=== PATIENT | female | born 1985 | race Caucasian/White ===

== ENCOUNTER 2021-12-14 08:00 | Outpatient (CLI) | payer OTHER ==
--- NOTE | 2021-12-15 08:47 | XRAY Report ---
PROCEDURE: Knee 2 View RT INDICATIONS: R KNEE PX TECHNIQUE: 2 views of the right knee(s) were acquired. COMPARISON: 08/24/2014. FINDINGS: Bones: No fractures or dislocations. No suspicious bony lesions. Soft tissues: No joint effusion. No suspicious soft tissue calcifications. IMPRESSION: Negative right knee. Reviewed by: Harshad Soliz MD on 12/15/2021 8:46 AM PDT Approved by: Harshad Soliz MD on 12/15/2021 8:46 AM PDT Station ID: [id number]
--- NOTE | 2021-12-15 08:55 | XRAY Report ---
PROCEDURE: Foot 3 View RT INDICATIONS: R FOOT PX TECHNIQUE: 3 views of the foot were acquired. COMPARISON: None FINDINGS: Bones: No fractures or dislocations. No suspicious bony lesions. Soft tissues: No tibiotalar joint effusion. Achilles tendon appears normal. IMPRESSION: No evidence for acute osseous abnormality involving the patient's right foot. Reviewed by: Harshad Soliz MD on 12/15/2021 8:53 AM PDT Approved by: Harshad Soliz MD on 12/15/2021 8:53 AM PDT Station ID: [id number]
--- NOTE | 2021-12-15 08:56 | XRAY Report ---
PROCEDURE: Ankle 3 View RT INDICATIONS: R ANKLE PX TECHNIQUE: 3 views of the ankle were acquired. COMPARISON: None FINDINGS: Bones: No fractures or dislocations. Ankle mortise is normally aligned. No suspicious bony lesions . Soft tissues: No tibiotalar joint effusion. Achilles tendon appears normal. IMPRESSION: Negative right ankle. Reviewed by: Harshad Soliz MD on 12/15/2021 8:54 AM PDT Approved by: Harshad Soliz MD on 12/15/2021 8:54 AM PDT Station ID: [id number]
== END 2021-12-14 23:59 | disposition home or self-care (01) ==
LOC: DI.N 08:00
PROVIDERS: ATTEND Registered Nurse
DX: M25.561 Pain in right knee (principal); M25.571 Pain in right ankle and joints of right foot; M79.671 Pain in right foot

== ENCOUNTER 2021-12-19 08:00 | Outpatient (CLI) | payer OTHER ==
[2021-12-19 12:43] LABS: BASOPHILS % (AUTO) 0.4 %; EOSINOPHILS # (AUTO) 0.1 10^3/uL (0.0-0.7); EOSINOPHILS % (AUTO) 1.3 %; HCT - HEMATOCRIT 40.1 % (37.0-47.0); HGB - HEMOGLOBIN 13.6 g/dL (12.0-16.0); LYMPHOCYTES # (AUTO) 2.2 10^3/uL (1.5-3.5); LYMPHOCYTES % (AUTO) 32.3 %; MEAN CORPUSCULAR HEMOGLOBIN 31.3 pg (27.0-31.0); MEAN CORPUSCULAR HGB CONC 33.9 g/dL (32.0-36.0); MEAN CORPUSCULAR VOLUME 92.4 fL (81.0-99.0); MEAN PLATELET VOLUME 10.6 fL (7.9-10.8); MONOCYTES # (AUTO) 0.5 10^3/uL (0.0-1.0); NEUTROPHILS % (AUTO) 58.6 %; PLT - PLATELET COUNT 185 10^3/uL (130-450); RED BLOOD COUNT 4.34 10^6/uL (4.20-5.40); RED CELL DISTRIBUTION WIDTH 12.1 % (12.0-15.0); WHITE BLOOD COUNT 6.8 x10^3/uL (4.8-10.8)
[2021-12-19 13:03] LABS: ALBUMIN 3.9 g/dL (3.2-5.5); ALBUMIN/GLOBULIN RATIO 1.5 (1.0-2.2); BILIRUBIN,TOTAL 0.4 mg/dL (0.2-1.0); CALCIUM 9.3 mg/dL (8.5-10.3); CREATININE 0.7 mg/dL (0.4-1.0); TOTAL PROTEIN 6.5 g/dL (6.7-8.2)
== END 2021-12-19 23:59 | disposition home or self-care (01) ==
LOC: LAB.N 08:00
PROVIDERS: ATTEND Physician Assistant Medical
DX: F41.9 Anxiety disorder, unspecified (principal)
CPT/HCPCS: 36415; 80053; 84443; 85025

== ENCOUNTER 2022-02-15 11:55 | Emergency (ER) | payer OTHER ==
[2022-02-15] MEDS ORDERED: SODIUM CHLORIDE 0.9% 1,000 ML IV STA (12:10)
[2022-02-15] MEDS ORDERED: ALBUTEROL NEB 2.5 MG/3 ML INH STA (12:10)
[2022-02-15] MEDS ORDERED: DEXAMETHASONE 10 MG/ML VIAL IVP STA (12:12)
[2022-02-15] MEDS ORDERED: ONDANSETRON 4 MG/2 ML VIAL IVP STA (12:12)
[2022-02-15] MEDS ORDERED: ACETAMINOPHEN 325 MG TABLET PO STA (12:13)
--- NOTE | 2022-02-15 12:13 | ED Physician Documentation ---
PD HPI URI - Stated complaint Stated Complaint: FEVER/LETHARGIC - Chief complaint Chief Complaint: General - History obtained from History obtained from: Patient - History of Present Illness Timing - onset: How many days ago (4) Timing duration: Days (4) Timing details: Abrupt onset, Still present Associated symptoms: Fever, Chills, Nasal congestion, Dry cough, Dyspnea (with feeling of her asthma exacerbated), NVD, Other (general weakness and lightheaded). 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 - Present Medications Home Medications: Ambulatory Orders Medication Instructions Recorded Confirmed Fluticasone/Salmeterol [Advair 1 puffs INH DAILY 04/20/14 02/15/22 500-50 Diskus] Albuterol Sulf [Ventolin Hfa 2 - 3 puffs INH QID #1 each 02/15/22 Inhaler] Benzonatate [Tessalon] 100 mg PO TID PRN #20 cap 02/15/22 Divalproex Sodium [Depakote] 750 mg PO DAILY 02/15/22 02/15/22 Ondansetron Odt [Zofran] 4 mg TL Q6H PRN #10 tablet 02/15/22 dexAMETHasone [Decadron] 4 mg PO DAILY #5 tablet 02/15/22 - Allergies Allergies/Adverse Reactions: Allergies Allergy/AdvReac Type Severity Reaction Status Date / Time betamethasone valerate * Allergy Hives Verified 02/15/22 12:09 [From Valisone] NSAIDS (Non-Steroidal Allergy Hives Verified 02/15/22 12:09 Anti-Inflamma pain medicine Allergy Respiratory Uncoded 02/15/22 12:09 - Social History Does the pt smoke?: No Smoking Status: Never smoker Does the pt drink ETOH?: Yes Does the pt have substance abuse?: No - Immunizations Immunizations are current?: Yes PD ED PE NORMAL - Vitals Vital signs reviewed: Yes (tachycardic) - General General: Alert and oriented X 3, No acute distress, Well developed/nourished - HEENT HEENT: Ears normal, Pharynx benign. No: Moist mucous membranes - Neck Neck: Supple, no meningeal sign, No adenopathy - Cardiac Cardiac: No murmur. No: RRR (regular but fast) - Respiratory Respiratory: No: Clear bilaterally (no coarse sounds, but diffuse exp wheezing) - Abdomen Abdomen: Soft, Non tender, Non distended - Derm Derm: Warm and dry, No rash. No: Normal color (pale) - Extremities Extremities: Normal ROM s pain, No edema, No calf tenderness / cord - Neuro Neuro: Alert and oriented X 3, No motor deficit, Normal speech Results - Vitals Vitals: Vital Signs - 24 hr 02/15/22 02/15/22 02/15/22 12:07 12:33 13:50 Temperature 38.1 C H Heart Rate 109 H 118 H 113 H Respiratory 14 22 18 Rate Blood Pressure 121/82 H 135/66 H O2 Saturation 100 98 02/15/22 14:29 Temperature 37.5 C Heart Rate 106 H Respiratory 18 Rate Blood Pressure 118/49 L O2 Saturation 97 Oxygen O2 Source Room air - Labs Labs: Laboratory Tests 02/15/22 02/15/22 02/15/22 12:29 12:41 12:41 WBC 8.1 RBC 4.07 L Hgb 12.6 Hct 38.1 MCV 93.6 MCH 31.0 MCHC 33.1 RDW 12.0 Plt Count 169 MPV 9.3 Neut # (Auto) 5.3 Lymph # (Auto) 2.0 Swain # (Auto) 0.8 Eos # (Auto) 0.0 Baso # (Auto) 0.0 Absolute Nucleated RBC 0.00 Nucleated RBC % 0.0 Sodium 138 Potassium 4.1 Chloride 102 Carbon Dioxide 27 Anion Gap 9.0 BUN 13 Creatinine 1.0 Estimated GFR (MDRD) 63 L Glucose 110 H Calcium 9.2 Total Bilirubin 0.6 AST 32 ALT 44 Alkaline Phosphatase 40 L Total Protein 7.0 Albumin 3.9 Globulin 3.1 Albumin/Globulin Ratio 1.3 Lipase 30 Nasal Adenovirus (PCR) NOT DETECTED Nasal B. parapertussis DNA (PCR) NOT DETECTED Nasal Coronavir 229E PCR NOT DETECTED Nasal Coronavir HKU1 PCR NOT DETECTED Nasal Coronavir NL63 PCR NOT DETECTED Nasal Coronavir OC43 PCR NOT DETECTED Nasal Enterovir/Rhinovir PCR NOT DETECTED Nasal Influenza A H3 PCR DETECTED A Nasal Influenza B PCR NOT DETECTED Nasal Parainfluen 1 PCR NOT DETECTED Nasal Parainfluen 2 PCR NOT DETECTED Nasal Parainfluen 3 PCR NOT DETECTED Nasal Parainfluen 4 PCR NOT DETECTED Nasal RSV (PCR) NOT DETECTED Nasal B.pertussis DNA PCR NOT DETECTED Nasal C.pneumoniae (PCR) NOT DETECTED Jayjay Human Metapneumo PCR NOT DETECTED Nasal M.pneumoniae (PCR) NOT DETECTED Nasal SARS-CoV-2 (PCR) NOT DETECTED Last Dose Date UNK Last Dose Time UNK Valproic Acid 45.6 - Rads (name of study) chest xray Radiology: Prelim report reviewed (no acute cardiopulmonary process), See rad report PD MEDICAL DECISION MAKING - ED course Complexity details: reviewed results (Positive for influenza A. However she is 5 days into the illness so I feel she would have little benefit from Tamiflu. Largely symptom treatment of the flu symptoms as well as exacerbation of her asthma.), re-evaluated patient (She states she is feeling much better after fluids and medication. Breathing easier after the inhaler/nebulizer. Has better color. Not feeling lightheaded. Tolerating oral fluids.), considered differential, d/w patient Departure - Departure Disposition: 01 Home, Self Care Clinical Impression: Nausea, Dehydration, Influenza A Exacerbation of asthma Qualifiers: Asthma severity: mild Asthma persistence: intermittent Qualified Code(s): J45. 21 - Mild intermittent asthma with (acute) exacerbation Condition: Stable Record reviewed to determine appropriate education?: Yes Instructions: ED Flu Follow-Up: Leatha Kenny MD [Primary Care Provider] - Prescriptions: dexAMETHasone [Decadron] 4 mg PO DAILY #5 tablet Benzonatate [Tessalon] 100 mg PO TID PRN #20 cap PRN Reason: Cough Albuterol Sulf [Ventolin Hfa Inhaler] 2 - 3 puffs INH QID #1 each Ondansetron Odt [Zofran] 4 mg TL Q6H PRN #10 tablet PRN Reason: Nausea / Vomiting Comments: You were given IV fluids here as you did appear under hydrated/dehydrated. You were having wheezing as well with exacerbation of your asthma. The albuterol seem to have helped as well as the IV fluids. I would have you continue with the albuterol inhaler 2 to 3 puffs 4 times daily for the next week or so. Add Decadron steroid for inflammation of the airways daily for 5 more days. Ondansetron if needed for nausea. Benzonatate if needed for cough. Your respiratory panel test showed positive for influenza A. The duration of your symptoms would suggest that you would get a benefit from antiviral medicine such as Tamiflu at this point. Largely symptom treatment but you should also be getting close to the tail end of the illness. I sent your prescriptions to the [facility] pharmacy. Discharge Date/Time: 02/15/22 14:33
[2022-02-15 12:49] LABS: BASOPHILS % (AUTO) 0.4 %; EOSINOPHILS % (AUTO) 0.2 %; HCT - HEMATOCRIT 38.1 % (37.0-47.0); HGB - HEMOGLOBIN 12.6 g/dL (12.0-16.0); LYMPHOCYTES % (AUTO) 24.3 %; MEAN CORPUSCULAR HGB CONC 33.1 g/dL (32.0-36.0); MEAN CORPUSCULAR VOLUME 93.6 fL (81.0-99.0); MEAN PLATELET VOLUME 9.3 fL (7.9-10.8); MONOCYTES # (AUTO) 0.8 10^3/uL (0.0-1.0); MONOCYTES % (AUTO) 9.6 %; NEUTROPHILS # (AUTO) 5.3 10^3/uL (1.5-6.6); NEUTROPHILS % (AUTO) 65.1 %; PLT - PLATELET COUNT 169 10^3/uL (130-450); RED BLOOD COUNT 4.07 10^6/uL (4.20-5.40); WHITE BLOOD COUNT 8.1 x10^3/uL (4.8-10.8)
[2022-02-15 13:03] LABS: ALBUMIN 3.9 g/dL (3.2-5.5); ALBUMIN/GLOBULIN RATIO 1.3 (1.0-2.2); ALKALINE PHOSPHATASE 40 IU/L (42-121); ALT ALANINE AMINOTRANSFERASE 44 IU/L (10-60); AST ASPARTATE AMINOTRANSFERASE 32 IU/L (10-42); BILIRUBIN,TOTAL 0.6 mg/dL (0.2-1.0); BUN - BLOOD UREA NITROGEN 13 mg/dL (6-20); CALCIUM 9.2 mg/dL (8.5-10.3); CARBON DIOXIDE - CO2 27 mmol/L (21-32); CHLORIDE 102 mmol/L (101-111); GFR - MDRD 63 (>89); GLUCOSE 110 mg/dL (70-100); LIPASE 30 U/L (22-51); POTASSIUM 4.1 mmol/L (3.5-5.0); SODIUM 138 mmol/L (135-145); VALPROIC ACID (DEPAKOTE) 45.6 ug/mL
--- NOTE | 2022-02-15 13:21 | XRAY Report ---
PROCEDURE: Chest 1 View X-Ray INDICATIONS: cough, fever, chest pain TECHNIQUE: One view of the chest was acquired. COMPARISON: Chest radiographs 05/23/2014. FINDINGS: Surgical changes and devices: None. Lungs and pleura: No pleural effusions or pneumothorax. Lung volumes are low. No definite suspicious focal airspace opacity. Mediastinum: Mediastinal contours appear normal. Heart size is normal. Bones and chest wall: No suspicious bony lesions. Overlying soft tissues appear unremarkable. IMPRESSION: No acute cardiopulmonary abnormality. Reviewed by: Bronson Osei MD on 02/15/2022 1:19 PM [facility] Approved by: Bronson Osei MD on 02/15/2022 1:19 PM [facility] Station ID: [id number]
[2022-02-15 13:45] LABS: B. PARAPERTUSSIS- RESP PCR PAN NOT DETECTED; B. PERTUSSIS- RESP PCR PANEL NOT DETECTED; C. PNEUMONIAE- RESP PCR PANEL NOT DETECTED; CORONAVIRUS 229E-RESP PCR NOT DETECTED; CORONAVIRUS HKU1-RESP PCR NOT DETECTED; CORONAVIRUS NL63-RESP PCR NOT DETECTED; CORONAVIRUS OC43-RESP PCR NOT DETECTED; HUMAN METAPNEUMOVIRUS NOT DETECTED; INFLUENZA A H3- RESP PCR PANEL DETECTED; INFLUENZA B - RESP PCR PANEL NOT DETECTED; M. PNEUMONIAE- RESP PCR PANEL NOT DETECTED; PARAINFLUENZA VIRUS 1 NOT DETECTED; PARAINFLUENZA VIRUS 2 NOT DETECTED; PARAINFLUENZA VIRUS 3 NOT DETECTED; PARAINFLUENZA VIRUS 4 NOT DETECTED; RHINOVIRUS/ENTEROVIRUS NOT DETECTED; RSV- RESP PCR PANEL NOT DETECTED; SARS-CoV-2 -RESP PCR PANEL NOT DETECTED
[2022-02-15 14:32] VITALS: BP 118/49
== END 2022-02-15 14:33 | disposition home or self-care (01) ==
LOC: EDUNIT# → ED 11:55
DX: J10.1 Influenza due to other identified influenza virus with other respiratory manifestations (principal); J45.21 Mild intermittent asthma with (acute) exacerbation; E86.0 Dehydration; R11.0 Nausea; E11.9 Type 2 diabetes mellitus without complications
CPT/HCPCS: 36415; 71045; 80053; 80164; 83690; 85025; 87633; 94640; 94664; 96361; 96374; 96375; 99284; A9270

== ENCOUNTER 2022-08-15 20:02 | Emergency (ER) | payer OTHER ==
[2022-08-15] MEDS ORDERED: ONDANSETRON 4 MG/2 ML VIAL IVP STA (20:24)
[2022-08-15] MEDS ORDERED: SODIUM CHLORIDE 0.9% 1,000 ML IV STA (20:24)
--- NOTE | 2022-08-15 20:31 | ED Physician Documentation ---
PD HPI ABD PAIN - Stated complaint Stated Complaint: ABD PX/VOMIT - Chief complaint Chief Complaint: Abd Pain - History obtained from History obtained from: Patient - Additional information Additional information: HPI from patient. Patient complains of abdominal pain, diffuse she does have, since gradual onset 4 PM today shortly after eating dinner. The pain is associated with nausea and vomiting, says she cannot "keep anything down" (per patient, including liquids). Patient says she was "supposed to get looked into for Crohn's disease but I left [place] before getting it checked out before moving to [facility]. However, she says that her symptoms today feel different in many ways from previous episodes of these symptoms. She denies fever. Says is very unlikely. She says she had diarrhea last week that resolved, and now feels constipated x 2 days Review of Systems Constitutional: denies: Fever GI: reports: Abdominal Pain, Nausea, Vomiting, Constipation. 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 - Present Medications Home Medications: Ambulatory Orders Medication Instructions Recorded Confirmed Fluticasone/Salmeterol [Advair 1 puffs INH DAILY 04/20/14 02/15/22 500-50 Diskus] Albuterol Sulf [Ventolin Hfa 2 - 3 puffs INH QID #1 each 02/15/22 Inhaler] Benzonatate [Tessalon] 100 mg PO TID PRN #20 cap 02/15/22 Divalproex Sodium [Depakote] 750 mg PO DAILY 02/15/22 02/15/22 Ondansetron Odt [Zofran] 4 mg TL Q6H PRN #10 tablet 02/15/22 dexAMETHasone [Decadron] 4 mg PO DAILY #5 tablet 02/15/22 Acetaminophen/Cod 300/30 [Tylenol 1 - 2 each PO Q6HR PRN #14 tablet 08/16/22 #3] Ondansetron Odt [Zofran Odt] 4 mg TL Q6H PRN #14 tablet 08/16/22 - Allergies Allergies/Adverse Reactions: Allergies Allergy/AdvReac Type Severity Reaction Status Date / Time acetaminophen [From Percocet] Allergy Anaphylaxis Verified 08/15/22 20:31 betamethasone valerate * Allergy Hives Verified 08/15/22 20:31 [From Valisone] diazepam [From Valium] Allergy Anaphylaxis Verified 08/15/22 20:31 hydrocodone [From Vicodin] Allergy Anaphylaxis Verified 08/15/22 20:31 morphine Allergy Anaphylaxis Verified 08/15/22 20:31 NSAIDS (Non-Steroidal Allergy Hives Verified 08/15/22 20:31 Anti-Inflamma oxycodone [From Percocet] Allergy Anaphylaxis Verified 08/15/22 20:31 pain medicine Allergy Respiratory Uncoded 02/15/22 12:09 - Social History Does the pt smoke?: No Smoking Status: Never smoker Does the pt drink ETOH?: Yes Does the pt have substance abuse?: No - Immunizations Immunizations are current?: Yes PD ED PE NORMAL - Vitals Vital signs reviewed: Yes - General General: Alert and oriented X 3, Well developed/nourished, Other (appears uncomfortable) - Cardiac Cardiac: RRR, No murmur - Respiratory Respiratory: No respiratory distress, Clear bilaterally - Abdomen Abdomen: Soft, Non distended, Other (mild/moderate TTP diffusely but most pronounced across lower abdomen; no rebound nor guarding) - Derm Derm: Normal color, Warm and dry Results - Vitals Vitals: Oxygen O2 Source Room air - Labs Labs: Laboratory Tests 08/15/22 08/15/22 08/15/22 20:34 20:34 21:24 WBC 7.1 RBC 4.43 Hgb 13.4 Hct 40.0 MCV 90.3 MCH 30.2 MCHC 33.5 RDW 12.4 Plt Count 199 MPV 10.1 Neut # (Auto) 3.9 Lymph # (Auto) 2.5 Chase # (Auto) 0.6 Eos # (Auto) 0.1 Baso # (Auto) 0.0 Absolute Nucleated RBC 0.00 Nucleated RBC % 0.0 Sodium 140 Potassium 3.7 Chloride 102 Carbon Dioxide 28 Anion Gap 10.0 BUN 10 Creatinine 0.7 Estimated GFR (MDRD) 94 Glucose 110 H Calcium 9.4 Total Bilirubin 0.5 AST 19 ALT 25 Alkaline Phosphatase 42 Total Protein 7.3 Albumin 4.2 Globulin 3.1 Albumin/Globulin Ratio 1.4 Lipase 35 Urine Color YELLOW Urine Clarity CLEAR Urine pH 7.0 Ur Specific [place] 1.015 Urine Protein NEGATIVE Urine Glucose (UA) NEGATIVE Urine Ketones NEGATIVE Urine Occult Blood TRACE-INTA Urine Nitrite NEGATIVE Urine Bilirubin NEGATIVE Urine Urobilinogen 0.2 (NORMAL) Ur Leukocyte Esterase NEGATIVE Ur Microscopic Review NOT INDICATED Urine Culture Comments NOT INDICATED Urine HCG, Qual NEGATIVE - Rads (name of study) CT A/P with IV contrast Relevant Findings:: Prelim report reviewed, See rad report PD Medical Decision Making - ED course Complexity details: reviewed results, re-evaluated patient, considered differential, d/w patient ED course: Normal CBC, ER abdominal panel (blood sugar 110), normal UA, negative UHCG CT A/P without concerning / diagnostic findings. Incidental findings of: IUD in place, diverticulosis without evidence of diverticulitis, and hepatic steatosis. Cause of patient is not apparent at this time. Results and return precautions are d/w patient. Given 1 liter NS IV, 4mg IV zofran x 2 doses, toradol IV, and tylenol #3 (she says she can take this for pain without adverse effect). She is e-prescribed tylenol #3 and ondansetron. I am prescribing a short course of short-acting opioid pain medication for this patient. I have reviewed the patients RIPSAWYER and no concerning findings were noted. I have discussed that the opioids are for short term therapy only, and will not be refilled from the ED. Departure - Departure Disposition: 01 Home, Self Care Clinical Impression: Abdominal pain Qualifiers: Abdominal location: generalized Qualified Code(s): R10.84 - Generalized abdominal pain Condition: Good Instructions: NAFLD, ED Abdominal Pain Female Non-Specific Abdominal Pain, ED Diverticulosis Follow-Up: KATE JACOBSEN PA-C [Primary Care Provider] - (3-5 days) Prescriptions: Acetaminophen/Cod 300/30 [Tylenol #3] 1 - 2 each PO Q6HR PRN #14 tablet PRN Reason: Pain >8 Ondansetron Odt [Zofran Odt] 4 mg TL Q6H PRN #14 tablet PRN Reason: Nausea / Vomiting Comments: There were no concerning or diagnostic findings on tonight's tests including the blood test, urinalysis, and the CT scan of your abdomen and pelvis. The cause of your symptoms is not apparent at this time. As we discussed, there were incidental findings on the CT scan of diverticulosis (information on this diagnosis is provided within these discharge sheets), and hepatic steatosis (instructions also provided in this packet). I have electronically submitted prescriptions for Tylenol with codeine (Tylenol #3) and ondansetron (antinausea medication) to the [facility] pharmacy in [place]. I am prescribing a short course of narcotic pain medication for you. These are potentially dangerous and addictive medications that should be used carefully. These medications may constipate you. Take an [id number] stool softener (docusate) twice daily with plenty of water while taking these medications. If you go 24 hours without a bowel movement, take [id number] miralax, per package instructions. Do not drink or drive while taking these medications. If you received narcotic or sedating medications while in the emergency department, do not drive for 24 hours. Store this medication in a safe, secure place and out of reach of children. It is a violation of federal law to give or sell this medication to another person or to use in a manner other than prescribed. The ED will not refill narcotic prescriptions, including prescriptions lost or stolen. To dispose of unwanted medications: 1. [facility] at [address] in [place] has a medication drop box. They accept prescription medications (in pill form) Sunday through Sunday 9:00 a.m. to 5:00 p.m. 2. The [facility] [employer] accepts prescription medications (in pill form only) for disposal year round. Call for more information. 3. Contact the [facility] for the next [facility] sponsored prescription drug collection event. , [phone], or [phone]; Discharge Date/Time: 08/16/22 02:10
[2022-08-15 20:46] LABS: BASOPHILS % (AUTO) 0.3 %; EOSINOPHILS # (AUTO) 0.1 10^3/uL (0.0-0.7); EOSINOPHILS % (AUTO) 1.1 %; HGB - HEMOGLOBIN 13.4 g/dL (12.0-16.0); LYMPHOCYTES # (AUTO) 2.5 10^3/uL (1.5-3.5); LYMPHOCYTES % (AUTO) 35.5 %; MEAN CORPUSCULAR HEMOGLOBIN 30.2 pg (27.0-31.0); MEAN CORPUSCULAR HGB CONC 33.5 g/dL (32.0-36.0); MEAN CORPUSCULAR VOLUME 90.3 fL (81.0-99.0); MEAN PLATELET VOLUME 10.1 fL (7.9-10.8); MONOCYTES # (AUTO) 0.6 10^3/uL (0.0-1.0); MONOCYTES % (AUTO) 7.8 %; NEUTROPHILS # (AUTO) 3.9 10^3/uL (1.5-6.6); NEUTROPHILS % (AUTO) 54.9 %; PLT - PLATELET COUNT 199 10^3/uL (130-450); RED BLOOD COUNT 4.43 10^6/uL (4.20-5.40); RED CELL DISTRIBUTION WIDTH 12.4 % (12.0-15.0); WHITE BLOOD COUNT 7.1 x10^3/uL (4.8-10.8)
[2022-08-15] MEDS ORDERED: KETOROLAC 30 MG/ML VIAL IVP STA (20:51)
--- OUTSIDE RECORDS SUMMARY | 2022-08-15 20:55 | EXTERNAL MEDICAL SUMMARY RPT | Continuity of Care Document ---
Author Name Unknown Address [address] [place] [address] Phone Organization [place] Address [address] [place] [address] Phone Care Team Providers Care Biological Scientist Name Role Phone Derian Helton Unavailable Unavailable Allergies and Intolerances date description facility type (no date) acetaminophen [facility] (unknown) (no date) diazepam [facility] (unknown) (no date) morphine [facility] (unknown) (no date) oxycodone [facility] (unknown) Problems date description facility 2022-07-19 00[facility] date description facility 2022-07-19 00:00 Computed tomography angiography of head and neck vessels with contrast [facility] Results/Labs test date author facility value unit interpretation Result panel 1 (unknown) (no date) (unknown) [facility] (no value) (units unknown) (unknown) Result panel 2 (unknown) (no date) (unknown) [facility] (no value) (units unknown) (unknown) Result panel 3 (unknown) (no date) (unknown) [facility] (no value) (units unknown) (unknown) Result panel 4 (unknown) (no date) (unknown) [facility] (no value) (units unknown) (unknown) Result panel 5 (unknown) (no date) (unknown) [facility] (no value) (units unknown) (unknown) Result panel 6 (unknown) (no date) (unknown) [facility] (no value) (units unknown) (unknown) Result panel 7 (unknown) (no date) (unknown) [facility] (no value) (units unknown) (unknown) Result panel 8 (unknown) (no date) (unknown) [facility] (no value) (units unknown) (unknown) Result panel 9 (unknown) (no date) (unknown) [facility] (no value) (units unknown) (unknown) Result panel 10 (unknown) (no date) (unknown) [facility] (no value) (units unknown) (unknown) Result panel 11 (unknown) (no date) (unknown) [facility] (no value) (units unknown) (unknown) Result panel 12 (unknown) (no date) (unknown) [facility] (no value) (units unknown) (unknown) Result panel 13 (unknown) (no date) (unknown) [facility] (no value) (units unknown) (unknown) Result panel 14 (unknown) (no date) (unknown) [facility] (no value) (units unknown) (unknown) Result panel 15 (unknown) (no date) (unknown) [facility] (no value) (units unknown) (unknown) Result panel 16 (unknown) (no date) (unknown) [facility] (no value) (units unknown) (unknown) Result panel 17 (unknown) (no date) (unknown) [facility] (no value) (units unknown) (unknown) Result panel 18 (unknown) (no date) (unknown) [facility] (no value) (units unknown) (unknown) Result panel 19 (unknown) (no date) (unknown) [facility] (no value) (units unknown) (unknown) Result panel 20 (unknown) (no date) (unknown) [facility] (no value) (units unknown) (unknown) Result panel 21 (unknown) (no date) (unknown) [facility] (no value) (units unknown) (unknown) Result panel 22 (unknown) (no date) (unknown) [facility] (no value) (units unknown) (unknown) Result panel 23 (unknown) (no date) (unknown) [facility] (no value) (units unknown) (unknown) Result panel 24 (unknown) (no date) (unknown) [facility] (no value) (units unknown) (unknown) Result panel 25 (unknown) (no date) (unknown) [facility] (no value) (units unknown) (unknown) Result panel 26 (unknown) (no date) (unknown) [facility] (no value) (units unknown) (unknown) Result panel 27 (unknown) (no date) (unknown) [facility] (no value) (units unknown) (unknown) Result panel 28 (unknown) (no date) (unknown) [facility] (no value) (units unknown) (unknown) Result panel 29 (unknown) (no date) (unknown) [facility] (no value) (units unknown) (unknown) Result panel 30 (unknown) (no date) (unknown) [facility] (no value) (units unknown) (unknown) Result panel 31 (unknown) (no date) (unknown) [facility] (no value) (units unknown) (unknown) Result panel 32 (unknown) (no date) (unknown) [facility] (no value) (units unknown) (unknown) Result panel 33 (unknown) (no date) (unknown) [facility] (no value) (units unknown) (unknown) Result panel 34 (unknown) (no date) (unknown) [facility] (no value) (units unknown) (unknown) Result panel 35 (unknown) (no date) (unknown) [facility] (no value) (units unknown) (unknown) Result panel 36 (unknown) (no date) (unknown) [facility] (no value) (units unknown) (unknown) Result panel 37 (unknown) (no date) (unknown) [facility] (no value) (units unknown) (unknown) Result panel 38 (unknown) (no date) (unknown) [facility] (no value) (units unknown) (unknown) Result panel 39 (unknown) (no date) (unknown) [facility] (no value) (units unknown) (unknown) Result panel 40 (unknown) (no date) (unknown) [facility] (no value) (units unknown) (unknown) Result panel 41 (unknown) (no date) (unknown) [facility] (no value) (units unknown) (unknown) Result panel 42 (unknown) (no date) (unknown) [facility] (no value) (units unknown) (unknown) Result panel 43 (unknown) (no date) (unknown) [facility] (no value) (units unknown) (unknown) Result panel 44 (unknown) (no date) (unknown) [facility] (no value) (units unknown) (unknown) Result panel 45 (unknown) (no date) (unknown) [facility] (no value) (units unknown) (unknown) Result panel 46 (unknown) (no date) (unknown) [facility] (no value) (units unknown) (unknown) Result panel 47 (unknown) (no date) (unknown) [facility] (no value) (units unknown) (unknown) Result panel 48 (unknown) (no date) (unknown) [facility] (no value) (units unknown) (unknown) Result panel 49 (unknown) (no date) (unknown) [facility] (no value[facility] (units unknown) (unknown) Result panel 50 (unknown) (no date) (unknown) [facility] (no value) (units unknown) (unknown) Result panel 51 (unknown) (no date) (unknown) [facility] (no value) (units unknown) (unknown) Result panel 52 (unknown) (no date) (unknown) [facility] (no value) (units unknown) (unknown) Result panel 53 (unknown) (no date) (unknown) [facility] (no value) (units unknown) (unknown) Result panel 54 (unknown) (no date) (unknown) [facility] (no value) (units unknown) (unknown) Result panel 55 (unknown) (no date) (unknown) [facility] (no value) (units unknown) (unknown) Result panel 56 (unknown) (no date) (unknown) [facility] (no value) (units unknown) (unknown) Result panel 57 (unknown) (no date) (unknown) [facility] (no value) (units unknown) (unknown) Result panel 58 (unknown) (no date) (unknown) [facility] (no value) (units unknown) (unknown) Result panel 59 (unknown) (no date) (unknown) [facility] (no value) (units unknown) (unknown) Result panel 60 (unknown) (no date) (unknown) [facility] (no value) (units unknown) (unknown) Result panel 61 (unknown) (no date) (unknown) [facility] (no value) (units unknown) (unknown) Result panel 62 (unknown) (no date) (unknown) [facility] (no value) (units unknown) (unknown) Result panel 63 (unknown) (no date) (unknown) [facility] (no value) (units unknown) (unknown) Result panel 64 (unknown) (no date) (unknown) [facility] (no value) (units unknown) (unknown) Result panel 65 (unknown) (no date) (unknown) [facility] (no value) (units unknown) (unknown) Result panel 66 (unknown) (no date) (unknown) [facility] (no value) (units unknown) (unknown) Result panel 67 (unknown) (no date) (unknown) [facility] (no value) (units unknown) (unknown) Result panel 68 (unknown) (no date) (unknown) [facility] (no value) (units unknown) (unknown) Result panel 69 (unknown) (no date) (unknown) [facility] (no value) (units unknown) (unknown) Result panel 70 (unknown) (no date) (unknown) [facility] (no value) (units unknown) (unknown) Result panel 71 (unknown) (no date) (unknown) [facility] (no value) (units unknown) (unknown) Result panel 72 (unknown) (no date) (unknown) [facility] (no value) (units unknown) (unknown) Result panel 73 (unknown) (no date) (unknown) [facility] (no value) (units unknown) (unknown) Result panel 74 (unknown) (no date) (unknown) [facility] (no value) (units unknown) (unknown) Result panel 75 (unknown) (no date) (unknown) [facility] (no value) (units unknown) (unknown) Result panel 76 (unknown) (no date) (unknown) [facility] (no value) (units unknown) (unknown) Result panel 77 (unknown) (no date) (unknown) [facility] (no value) (units unknown) (unknown) Result panel 78 (unknown) (no date) (unknown) [facility] (no value) (units unknown) (unknown) Result panel 79 (unknown) (no date) (unknown) [facility] (no value) (units unknown) (unknown) Result panel 80 (unknown) (no date) (unknown) [facility] (no value) (units unknown) (unknown) Result panel 81 (unknown) (no date) (unknown) [facility] (no value) (units unknown) (unknown) Result panel 82 (unknown) (no date) (unknown) [facility] (no value) (units unknown) (unknown) Result panel 83 (unknown) (no date) (unknown) [facility] (no value) (units unknown) (unknown) Result panel 84 (unknown) (no date) (unknown) [facility] (no value) (units unknown) (unknown) Result panel 85 (unknown) (no date) (unknown) [facility] (no value) (units unknown) (unknown) Result panel 86 (unknown) (no date) (unknown) [facility] (no value) (units unknown) (unknown) Result panel 87 (unknown) (no date) (unknown) [facility] (no value) (units unknown) (unknown) Result panel 88 (unknown) (no date) (unknown) [facility] (no value) (units unknown) (unknown) Result panel 89 (unknown) (no date) (unknown) [facility] (no value) (units unknown) (unknown) Result panel 90 (unknown) (no date) (unknown) [facility] (no value) (units unknown) (unknown) Result panel 91 (unknown) (no date) (unknown) [facility] (no value) (units unknown) (unknown) Result panel 92 (unknown) (no date) (unknown) [facility] (no value) (units unknown) (unknown) Result panel 93 (unknown) (no date) (unknown) [facility] (no value) (units unknown) (unknown) Result panel 94 (unknown) (no date) (unknown) [facility] (no value) (units unknown) (unknown) Result panel 95 (unknown) (no date) (unknown) [facility] (no value) (units unknown) (unknown) Result panel 96 (unknown) (no date) (unknown) [facility] (no value) (units unknown) (unknown) Result panel 97 (unknown) (no date) (unknown) [facility] (no value) (units unknown) (unknown) Result panel 98 (unknown) (no date) (unknown) [facility] (no value) (units unknown) (unknown) Result panel 99 (unknown) (no date) (unknown) [facility] (no value) (units unknown) (unknown) Result panel 100 (unknown) (no date) (unknown) [facility] (no value) (units unknown) (unknown) Result panel 101 (unknown) (no date) (unknown) [facility] (no value) (units unknown) (unknown) Result panel 102 (unknown) (no date) (unknown) [facility] (no value) (units unknown) (unknown) Result panel 103 (unknown) (no date) (unknown) [facility] (no value) (units unknown) (unknown) Result panel 104 (unknown) (no date) (unknown) [facility] (no value) (units unknown) (unknown) Result panel 105 (unknown) (no date) (unknown) [facility] (no value) (units unknown) (unknown) Result panel 106 (unknown) (no date) (unknown) [facility] (no value) (units unknown) (unknown) Result panel 107 (unknown) (no date) (unknown) [facility] (no value) (units unknown) (unknown) Result panel 108 (unknown) (no date) (unknown) [facility] (no value) (units unknown) (unknown) Result panel 109 (unknown) (no date) (unknown) [facility] (no value) (units unknown) (unknown) Result panel 110 (unknown) (no date) (unknown) [facility] (no value) (units unknown) (unknown) Result panel 111 (unknown) (no date) (unknown) [facility] (no value) (units unknown) (unknown) Result panel 112 (unknown) (no date) (unknown) [facility] (no value) (units unknown) (unknown) Result panel 113 (unknown) (no date) (unknown) [facility] (no value) (units unknown) (unknown) Result panel 114 (unknown) (no date) (unknown) [facility] (no value) (units unknown) (unknown) Result panel 115 (unknown) (no date) (unknown) [facility] (no value) (units unknown) (unknown) Result panel 116 (unknown) (no date) (unknown) [facility] (no value) (units unknown) (unknown) Result panel 117 (unknown) (no date) (unknown) [facility] (no value) (units unknown) (unknown) Result panel 118 (unknown) (no date) (unknown) [facility] (no value) (units unknown) (unknown) Result panel 119 (unknown) (no date) (unknown) [facility] (no value) (units unknown) (unknown) Result panel 120 (unknown) (no date) (unknown) [facility] (no value) (units unknown) (unknown) Result panel 121 (unknown) (no date) (unknown) [facility] (no value) (units unknown) (unknown) Result panel 122 (unknown) (no date) (unknown) [facility] (no value) (units unknown) (unknown) Result panel 123 (unknown) (no date) (unknown) [facility] (no value) (units unknown) (unknown) Result panel 124 (unknown) (no date) (unknown) [facility] (no value) (units unknown) (unknown) Result panel 125 (unknown) (no date) (unknown) [facility] (no value) (units unknown) (unknown) Result panel 126 (unknown) (no date) (unknown) [facility] (no value) (units unknown) (unknown) Result panel 127 (unknown) (no date) (unknown) [facility] (no value) (units unknown) (unknown) Result panel 128 (unknown) (no date) (unknown) [facility] (no value) (units unknown) (unknown) Result panel 129 (unknown) (no date) (unknown) [facility] (no value) (units unknown) (unknown) Result panel 130 (unknown) (no date) (unknown) [facility] (no value) (units unknown) (unknown) Result panel 131 (unknown) (no date) (unknown) (unknown) (no value) (units unknown) (unknown) (unknown) (no date) (unknown) (unknown) 07/19/22 (units unknown) (unknown) (unknown) (no date) (unknown) (unknown) 1. No evidence acute intracranial process. (units unknown) (unknown) (unknown) (no date) (unknown) (unknown) [address] [place] [address] (units unknown) (unknown) (unknown) (no date) (unknown) (unknown) 2. Unremarkable CTA head. No stenosis, aneurysm, occlusion, or focal filling (units unknown) (unknown) (unknown) (no date) (unknown) (unknown) 3. Patent carotids. (units unknown) (unknown) (unknown) (no date) (unknown) (unknown) Accession Number: [id number] (units unknown) (unknown) (unknown) (no date) (unknown) (unknown) Age/Sex: 37 / F Date of Service: (units unknown) (unknown) (unknown) (no date) (unknown) (unknown) [place] [address] (units unknown) (unknown) (unknown) (no date) (unknown) (unknown) Anterior circulation: Intracranial internal carotid arteries are normal in size (units unknown) (unknown) (unknown) (no date) (unknown) (unknown) Any quantitative measurements of stenosis were performed using NASCET criteria. (units unknown) (unknown) (unknown) (no date) (unknown) (unknown) Approved by: Krishan Alonzo M.D. on 07/19/2022 at 12:55 (units unknown) (unknown) (unknown) (no date) (unknown) (unknown) BRAIN: (units unknown) (unknown) (unknown) (no date) (unknown) (unknown) Bones: No suspicious bony lesions. Visualized cervical spine appears normally (units unknown) (unknown) (unknown) (no date) (unknown) (unknown) Brain: No midline shift. No intracranial bleeds or masses. Hugehs-white matter (units unknown) (unknown) (unknown) (no date) (unknown) (unknown) COMPARISON: None. (units unknown) (unknown) (unknown) (no date) (unknown) (unknown) CSF spaces: Ventricles are normal in size and shape. Basal cisterns are (units unknown) (unknown) (unknown) (no date) (unknown) (unknown) CT Scan Report (units unknown) (unknown) (unknown) (no date) (unknown) (unknown) Carotid system: The great vessels demonstrate a conventional anatomy as they (units unknown) (unknown) (unknown) (no date) (unknown) (unknown) : 1985 Acct:[id number] (units unknown) (unknown) (unknown) (no date) (unknown) (unknown) Dictated by: Krishan Alonzo M.D. on 07/19/2022 at 12:52 (units unknown) (unknown) (unknown) (no date) (unknown) (unknown) FINDINGS: (units unknown) (unknown) (unknown) (no date) (unknown) (unknown) HEAD CT ANGIOGRAPHY: (units unknown) (unknown) (unknown) (no date) (unknown) (unknown) IMPRESSION: (units unknown) (unknown) (unknown) (no date) (unknown) (unknown) INDICATIONS: headache/left face numb (units unknown) (unknown) (unknown) (no date) (unknown) (unknown) Image quality: Excellent. (units unknown) (unknown) (unknown) (no date) (unknown) (unknown) [facility] (units unknown) (unknown) (unknown) (no date) (unknown) (unknown) Loc: ED (units unknown) (unknown) (unknown) (no date) (unknown) (unknown) MR#: [id number] (units unknown) (unknown) (unknown) (no date) (unknown) (unknown) NECK CT ANGIOGRAPHY: (units unknown) (unknown) (unknown) (no date) (unknown) (unknown) Orbits appear normal. (units unknown) (unknown) (unknown) (no date) (unknown) (unknown) Ordering Provider: Isreal Dunne MD (units unknown) (unknown) (unknown) (no date) (unknown) (unknown) PROCEDURE: CT ANGIO HEAD AND NECK (units unknown) (unknown) (unknown) (no date) (unknown) (unknown) Patient: Manasa Mark (units unknown) (unknown) (unknown) (no date) (unknown) (unknown) Posterior circulation: The origins of the vertebral arteries both appear widely (units unknown) (unknown) (unknown) (no date) (unknown) (unknown) Posterior circulation: Visualized portions of the vertebral arteries (units unknown) (unknown) (unknown) (no date) (unknown) (unknown) Pre-contrast 4.5 mm thick sections acquired from the foramen magnum to the (units unknown) (unknown) (unknown) (no date) (unknown) (unknown) Procedure: CT angio head and neck (units unknown) (unknown) (unknown) (no date) (unknown) (unknown) Signed (units unknown) (unknown) (unknown) (no date) (unknown) (unknown) Sinuses: Sinuses and mastoids are clear. (units unknown) (unknown) (unknown) (no date) (unknown) (unknown) Skull and face: Calvarium and facial bones appear intact, without suspicious (units unknown) (unknown) (unknown) (no date) (unknown) (unknown) Soft tissues: Visualized neck soft tissues demonstrate no suspicious (units unknown) (unknown) (unknown) (no date) (unknown) (unknown) TECHNIQUE: (units unknown) (unknown) (unknown) (no date) (unknown) (unknown) The flow within the middle cerebral arteries is normal and symmetric. The (units unknown) (unknown) (unknown) (no date) (unknown) (unknown) The more superior extracranial portions of both vertebral arteries also (units unknown) (unknown) (unknown) (no date) (unknown) (unknown) abnormalities. (units unknown) (unknown) (unknown) (no date) (unknown) (unknown) acquired (units unknown) (unknown) (unknown) (no date) (unknown) (unknown) aligned. (units unknown) (unknown) (unknown) (no date) (unknown) (unknown) and neck separately. For radiation dose reduction, the following was used: (units unknown) (unknown) (unknown) (no date) (unknown) (unknown) and (units unknown) (unknown) (unknown) (no date) (unknown) (unknown) and/or volume rendering reformats were acquired of the central intracranial (units unknown) (unknown) (unknown) (no date) (unknown) (unknown) anterior (units unknown) (unknown) (unknown) (no date) (unknown) (unknown) appears intact. (units unknown) (unknown) (unknown) (no date) (unknown) (unknown) arch through the [place] of [place]. Post-contrast 4.5 mm thick sections then re (units unknown) (unknown) (unknown) (no date) (unknown) (unknown) arise from (units unknown) (unknown) (unknown) (no date) (unknown) (unknown) artery. (units unknown) (unknown) (unknown) (no date) (unknown) (unknown) automated (units unknown) (unknown) (unknown) (no date) (unknown) (unknown) both widely patent. The internal carotid arteries demonstrate normal calibers (units unknown) (unknown) (unknown) (no date) (unknown) (unknown) caliber, and join to form a normal appearing basilar artery. Flow within the (units unknown) (unknown) (unknown) (no date) (unknown) (unknown) carotid arteries demonstrate normal caliber and courses. The bifurcation (units unknown) (unknown) (unknown) (no date) (unknown) (unknown) cerebral arteries is normal and symmetric. No aneurysms are seen. (units unknown) (unknown) (unknown) (no date) (unknown) (unknown) common (units unknown) (unknown) (unknown) (no date) (unknown) (unknown) communicating artery is seen. No aneurysms are seen. (units unknown) (unknown) (unknown) (no date) (unknown) (unknown) courses. (units unknown) (unknown) (unknown) (no date) (unknown) (unknown) defect. (units unknown) (unknown) (unknown) (no date) (unknown) (unknown) demonstrate normal (units unknown) (unknown) (unknown) (no date) (unknown) (unknown) demonstrate (units unknown) (unknown) (unknown) (no date) (unknown) (unknown) exposure control, adjustment of mA and/or kV according to patient size. (units unknown) (unknown) (unknown) (no date) (unknown) (unknown) extra-axial fluid collections. (units unknown) (unknown) (unknown) (no date) (unknown) (unknown) flow. The flow within the paired anterior cerebral arteries is normal and (units unknown) (unknown) (unknown) (no date) (unknown) (unknown) from the foramen magnum to the vertex. 3-dimensional (units unknown) (unknown) (unknown) (no date) (unknown) (unknown) interface (units unknown) (unknown) (unknown) (no date) (unknown) (unknown) lesions. (units unknown) (unknown) (unknown) (no date) (unknown) (unknown) [id number] ojection (MIP) (units unknown) (unknown) (unknown) (no date) (unknown) (unknown) normal courses and calibers. They join to form a normal appearing basilar (units unknown) (unknown) (unknown) (no date) (unknown) (unknown) patent. No (units unknown) (unknown) (unknown) (no date) (unknown) (unknown) patent. (units unknown) (unknown) (unknown) (no date) (unknown) (unknown) posterior (units unknown) (unknown) (unknown) (no date) (unknown) (unknown) regions are (units unknown) (unknown) (unknown) (no date) (unknown) (unknown) symmetric. (units unknown) (unknown) (unknown) (no date) (unknown) (unknown) the administration of intravenous contrast, 1 mm thick sections acquired from (units unknown) (unknown) (unknown) (no date) (unknown) (unknown) the aortic arch. The origins of the common carotid arteries appear patent. The (units unknown) (unknown) (unknown) (no date) (unknown) (unknown) the aortic (units unknown) (unknown) (unknown) (no date) (unknown) (unknown) vasculature (units unknown) (unknown) (unknown) (no date) (unknown) (unknown) vertex. After (units unknown) (unknown) Result panel 132 (unknown) (no date) (unknown) (unknown) 0 /ul (unknown) (unknown) (no date) (unknown) (unknown) 0.3 % (unknown) (unknown) (no date) (unknown) (unknown) 1.7 % (unknown) (unknown) (no date) (unknown) (unknown) 100 /ul (unknown) (unknown) (no date) (unknown) (unknown) 13.3 g/dl (unknown) (unknown) (no date) (unknown) (unknown) 13.6 % (unknown) (unknown) (no date) (unknown) (unknown) 185 x10 3/ul (unknown) (unknown) (no date) (unknown) (unknown) 2400 /ul (unknown) (unknown) (no date) (unknown) (unknown) 29.7 pg (unknown) (unknown) (no date) (unknown) (unknown) 300 /ul (unknown) (unknown) (no date) (unknown) (unknown) 34.0 % (unknown) (unknown) (no date) (unknown) (unknown) 36.1 % (unknown) (unknown) (no date) (unknown) (unknown) 3800 /ul (unknown) (unknown) (no date) (unknown) (unknown) 39.3 % (unknown) (unknown) (no date) (unknown) (unknown) 4.50 x10 6/ul (unknown) (unknown) (no date) (unknown) (unknown) 4.9 % (unknown) (unknown) (no date) (unknown) (unknown) 57.0 % (unknown) (unknown) (no date) (unknown) (unknown) 6.6 x10 3/ul (unknown) (unknown) (no date) (unknown) (unknown) 87.4 fl (unknown) Result panel 133 (unknown) (no date) (unknown) (unknown) (no value) (units unknown) (unknown) (unknown) (no date) (unknown) (unknown) 07/19/22 11:02 (units unknown) (unknown) (unknown) (no date) (unknown) (unknown) 07/19/22 11:03 (units unknown) (unknown) (unknown) (no date) (unknown) (unknown) 07/19/22 (units unknown) (unknown) (unknown) (no date) (unknown) (unknown) 09:38 07/19/22 (units unknown) (unknown) (unknown) (no date) (unknown) (unknown) 10:08 07/19/22 (units unknown) (unknown) (unknown) (no date) (unknown) (unknown) 10:30 (units unknown) (unknown) (unknown) (no date) (unknown) (unknown) 10:57 07/19/22 (units unknown) (unknown) (unknown) (no date) (unknown) (unknown) 11:00 (units unknown) (unknown) (unknown) (no date) (unknown) (unknown) Age/Sex: 37 / F (units unknown) (unknown) (unknown) (no date) (unknown) (unknown) Allergies (units unknown) (unknown) (unknown) (no date) (unknown) (unknown) Allergy/AdvReac Type Severity Reaction Status Date / Time (units unknown) (unknown) (unknown) (no date) (unknown) (unknown) Blood Pressure 121/58 L 124/72 (units unknown) (unknown) (unknown) (no date) (unknown) (unknown) Blood Pressure 149/83 H 07/19/22 09:38 (units unknown) (unknown) (unknown) (no date) (unknown) (unknown) Blood Pressure 149/83 H (units unknown) (unknown) (unknown) (no date) (unknown) (unknown) Blood Pressure (units unknown) (unknown) (unknown) (no date) (unknown) (unknown) CT angio head and neck Stat (units unknown) (unknown) (unknown) (no date) (unknown) (unknown) Chief Complaint: Headache (units unknown) (unknown) (unknown) (no date) (unknown) (unknown) Complete Blood Count AUTO DIFF Stat (units unknown) (unknown) (unknown) (no date) (unknown) (unknown) Comprehensive Metabolic Panel Stat (units unknown) (unknown) (unknown) (no date) (unknown) (unknown) Course (units unknown) (unknown) (unknown) (no date) (unknown) (unknown) : 1985 Acct:[id number] (units unknown) (unknown) (unknown) (no date) (unknown) (unknown) Date of Service: 07/19/22 (units unknown) (unknown) (unknown) (no date) (unknown) (unknown) Departure (units unknown) (unknown) (unknown) (no date) (unknown) (unknown) Discharge Plan (units unknown) (unknown) (unknown) (no date) (unknown) (unknown) Discontinued Medications (units unknown) (unknown) (unknown) (no date) (unknown) (unknown) Documented By: MO (units unknown) (unknown) (unknown) (no date) (unknown) (unknown) ED Orders (units unknown) (unknown) (unknown) (no date) (unknown) (unknown) ER Physician: Isreal Dunne MD (units unknown) (unknown) (unknown) (no date) (unknown) (unknown) Emergency Report (units unknown) (unknown) (unknown) (no date) (unknown) (unknown) Exam (units unknown) (unknown) (unknown) (no date) (unknown) (unknown) General (units unknown) (unknown) (unknown) (no date) (unknown) (unknown) HPI - Headache (units unknown) (unknown) (unknown) (no date) (unknown) (unknown) HPI Narrative: (units unknown) (unknown) (unknown) (no date) (unknown) (unknown) History of Present Illness (units unknown) (unknown) (unknown) (no date) (unknown) (unknown) Initial Vital Signs (units unknown) (unknown) (unknown) (no date) (unknown) (unknown) Initial Vital Signs: (units unknown) (unknown) (unknown) (no date) (unknown) (unknown) [address] [address] (units unknown) (unknown) (unknown) (no date) (unknown) (unknown) Ketorolac Tromethamine (Ketorolac 30 Mg/Ml Vial) 15 mg IV NOW ONE (units unknown) (unknown) (unknown) (no date) (unknown) (unknown) Last Admin: 07/19/22 10:54 Dose: 15 mg (units unknown) (unknown) (unknown) (no date) (unknown) (unknown) Last Admin: 07/19/22 10:55 Dose: 5 mg (units unknown) (unknown) (unknown) (no date) (unknown) (unknown) Last Admin: 07/19/22 10:56 Dose: 1,000 mls/hr (units unknown) (unknown) (unknown) (no date) (unknown) (unknown) Mode of arrival: Wheelchair (units unknown) (unknown) (unknown) (no date) (unknown) (unknown) Ordered: (units unknown) (unknown) (unknown) (no date) (unknown) (unknown) Orders (units unknown) (unknown) (unknown) (no date) (unknown) (unknown) Oxygen Delivery Method Room Air 07/19/22 09:38 (units unknown) (unknown) (unknown) (no date) (unknown) (unknown) Oxygen Delivery Method Room Air (units unknown) (unknown) (unknown) (no date) (unknown) (unknown) Oxygen Delivery Method (units unknown) (unknown) (unknown) (no date) (unknown) (unknown) PTT Partial Thromboplastin Alessandro Stat (units unknown) (unknown) (unknown) (no date) (unknown) (unknown) Patient History (units unknown) (unknown) (unknown) (no date) (unknown) (unknown) Patient brought here by for complaints of global generalized headache (units unknown) (unknown) (unknown) (no date) (unknown) (unknown) Patient: DeedeeMei M (units unknown) (unknown) (unknown) (no date) (unknown) (unknown) Prochlorperazine (Prochlorperazine 10 Mg/2 Ml Vial) 5 mg IV NOW ONE (units unknown) (unknown) (unknown) (no date) (unknown) (unknown) Prothrombin Time INR Stat (units unknown) (unknown) (unknown) (no date) (unknown) (unknown) Provider,Ba RAYGOZA [Primary Care Provider] (units unknown) (unknown) (unknown) (no date) (unknown) (unknown) Pulse Oximetry 100 (units unknown) (unknown) (unknown) (no date) (unknown) (unknown) Pulse Oximetry 95 07/19/22 09:38 (units unknown) (unknown) (unknown) (no date) (unknown) (unknown) Pulse Oximetry 95 99 99 (units unknown) (unknown) (unknown) (no date) (unknown) (unknown) Pulse Oximetry 98 (units unknown) (unknown) (unknown) (no date) (unknown) (unknown) Pulse Rate 74 (units unknown) (unknown) (unknown) (no date) (unknown) (unknown) Pulse Rate 82 (units unknown) (unknown) (unknown) (no date) (unknown) (unknown) Pulse Rate 85 07/19/22 09:38 (units unknown) (unknown) (unknown) (no date) (unknown) (unknown) Pulse Rate 85 80 79 (units unknown) (unknown) (unknown) (no date) (unknown) (unknown) R#: [id number] (units unknown) (unknown) (unknown) (no date) (unknown) (unknown) Referrals: (units unknown) (unknown) (unknown) (no date) (unknown) (unknown) Related Data (units unknown) (unknown) (unknown) (no date) (unknown) (unknown) Respiratory Rate 15 07/19/22 09:38 (units unknown) (unknown) (unknown) (no date) (unknown) (unknown) Respiratory Rate 15 (units unknown) (unknown) (unknown) (no date) (unknown) (unknown) Respiratory Rate (units unknown) (unknown) (unknown) (no date) (unknown) (unknown) Signed By: (units unknown) (unknown) (unknown) (no date) (unknown) (unknown) Smoking Status: Former smoker (units unknown) (unknown) (unknown) (no date) (unknown) (unknown) Social History (units unknown) (unknown) (unknown) (no date) (unknown) (unknown) Sodium Chloride (Normal Saline 0.9%) 1,000 mls @ 1,000 mls/hr IV BOLUS ONE (units unknown) (unknown) (unknown) (no date) (unknown) (unknown) Stated Complaint: severe migraine T-1 (units unknown) (unknown) (unknown) (no date) (unknown) (unknown) Stop: 07/19/22 10:34 (units unknown) (unknown) (unknown) (no date) (unknown) (unknown) Stop: 07/19/22 11:32 (units unknown) (unknown) (unknown) (no date) (unknown) (unknown) Substance Use Type: does not use (units unknown) (unknown) (unknown) (no date) (unknown) (unknown) Temperature 97.2 F L 07/19/22 09:38 (units unknown) (unknown) (unknown) (no date) (unknown) (unknown) Temperature 97.2 F L (units unknown) (unknown) (unknown) (no date) (unknown) (unknown) Temperature (units unknown) (unknown) (unknown) (no date) (unknown) (unknown) Time Seen by Provider: 07/19/22 10:12 (units unknown) (unknown) (unknown) (no date) (unknown) (unknown) Troponin + CK Cardiac Panel Stat (units unknown) (unknown) (unknown) (no date) (unknown) (unknown) Vital Signs - 8 hr (units unknown) (unknown) (unknown) (no date) (unknown) (unknown) Vital Signs (units unknown) (unknown) (unknown) (no date) (unknown) (unknown) Vital signs: (units unknown) (unknown) (unknown) (no date) (unknown) (unknown) acetaminophen [From Percocet] Allergy Verified 07/19/22 09:43 (units unknown) (unknown) (unknown) (no date) (unknown) (unknown) alcohol intake frequency: a few times a week (units unknown) (unknown) (unknown) (no date) (unknown) (unknown) diazepam [From Valium] Allergy Verified 07/19/22 09:43 (units unknown) (unknown) (unknown) (no date) (unknown) (unknown) morphine Allergy Verified 07/19/22 09:43 (units unknown) (unknown) (unknown) (no date) (unknown) (unknown) oxycodone Allergy Verified 07/19/22 09:43 (units unknown) (unknown) (unknown) (no date) (unknown) (unknown) that started 10:00 a.m. yesterday. (units unknown) (unknown) Result panel 134 (unknown) (no date) (unknown) (unknown) 1.1 (units unknown) (unknown) (unknown) (no date) (unknown) (unknown) 12.5 seconds (unknown) Result panel 135 (unknown) (no date) (unknown) (unknown) 1.1 (units unknown) (unknown) (unknown) (no date) (unknown) (unknown) 12.5 seconds (unknown) (unknown) (no date) (unknown) (unknown) 33 seconds (unknown) (unknown) (no date) (unknown) (unknown) 33 seconds (unknown) Result panel 136 (unknown) (no date) (unknown) (unknown) (no value) (units unknown) (unknown) (unknown) (no date) (unknown) (unknown) 07/19/22 11:02 (units unknown) (unknown) (unknown) (no date) (unknown) (unknown) 07/19/22 11:03 (units unknown) (unknown) (unknown) (no date) (unknown) (unknown) 07/19/22 (units unknown) (unknown) (unknown) (no date) (unknown) (unknown) 09:38 07/19/22 (units unknown) (unknown) (unknown) (no date) (unknown) (unknown) 10:08 07/19/22 (units unknown) (unknown) (unknown) (no date) (unknown) (unknown) 10:30 (units unknown) (unknown) (unknown) (no date) (unknown) (unknown) 10:57 07/19/22 (units unknown) (unknown) (unknown) (no date) (unknown) (unknown) 11:00 (units unknown) (unknown) (unknown) (no date) (unknown) (unknown) After history and exam CT angiogram head and neck ordered normal saline, (units unknown) (unknown) (unknown) (no date) (unknown) (unknown) Age/Sex: 37 / F (units unknown) (unknown) (unknown) (no date) (unknown) (unknown) Allergies (units unknown) (unknown) (unknown) (no date) (unknown) (unknown) Allergy/AdvReac Type Severity Reaction Status Date / Time (units unknown) (unknown) (unknown) (no date) (unknown) (unknown) Ask month/age: Answers both questions correctly. (units unknown) (unknown) (unknown) (no date) (unknown) (unknown) BACK: No flank tenderness. (units unknown) (unknown) (unknown) (no date) (unknown) (unknown) Best gaze horizontal: Normal (units unknown) (unknown) (unknown) (no date) (unknown) (unknown) Best language: No aphasia, normal (units unknown) (unknown) (unknown) (no date) (unknown) (unknown) Blood Pressure 121/58 L 124/72 (units unknown) (unknown) (unknown) (no date) (unknown) (unknown) Blood Pressure 149/83 H 07/19/22 09:38 (units unknown) (unknown) (unknown) (no date) (unknown) (unknown) Blood Pressure 149/83 H (units unknown) (unknown) (unknown) (no date) (unknown) (unknown) Blood Pressure (units unknown) (unknown) (unknown) (no date) (unknown) (unknown) CARDIOVASCULAR: Regular rate and rhythm without murmurs (units unknown) (unknown) (unknown) (no date) (unknown) (unknown) CARDIOVASCULAR: negative chest pain, palpitations (units unknown) (unknown) (unknown) (no date) (unknown) (unknown) CC: Headache with left facial and left arm numbness and weakness (units unknown) (unknown) (unknown) (no date) (unknown) (unknown) CT angio head and neck Stat (units unknown) (unknown) (unknown) (no date) (unknown) (unknown) Chief Complaint: Headache (units unknown) (unknown) (unknown) (no date) (unknown) (unknown) Complete Blood Count AUTO DIFF Stat (units unknown) (unknown) (unknown) (no date) (unknown) (unknown) Complicating co-morbidities: Chronic migraines (units unknown) (unknown) (unknown) (no date) (unknown) (unknown) Comprehensive Metabolic Panel Stat (units unknown) (unknown) (unknown) (no date) (unknown) (unknown) Consultations: (units unknown) (unknown) (unknown) (no date) (unknown) (unknown) Course (units unknown) (unknown) (unknown) (no date) (unknown) (unknown) : 1985 Acct:[id number] (units unknown) (unknown) (unknown) (no date) (unknown) (unknown) Data collected from: Patient and (units unknown) (unknown) (unknown) (no date) (unknown) (unknown) Date of Service: 07/19/22 (units unknown) (unknown) (unknown) (no date) (unknown) (unknown) Departure (units unknown) (unknown) (unknown) (no date) (unknown) (unknown) Diagnosis: (units unknown) (unknown) (unknown) (no date) (unknown) (unknown) Differential considered: Includes but not limited to stroke TIA complex (units unknown) (unknown) (unknown) (no date) (unknown) (unknown) Discharge Plan (units unknown) (unknown) (unknown) (no date) (unknown) (unknown) Discontinued Medications (units unknown) (unknown) (unknown) (no date) (unknown) (unknown) Discussion: (units unknown) (unknown) (unknown) (no date) (unknown) (unknown) Documented By: MO (units unknown) (unknown) (unknown) (no date) (unknown) (unknown) Dysarthria: Normal (units unknown) (unknown) (unknown) (no date) (unknown) (unknown) ED Orders (units unknown) (unknown) (unknown) (no date) (unknown) (unknown) ENT: Mucous membranes moist. (units unknown) (unknown) (unknown) (no date) (unknown) (unknown) ER Physician: Isreal Dunne MD (units unknown) (unknown) (unknown) (no date) (unknown) (unknown) EXTREMITIES: No gross deformities. (units unknown) (unknown) (unknown) (no date) (unknown) (unknown) EYES: Pupils equal round PERRLA, EOMI, patient is sensitive to light with (units unknown) (unknown) (unknown) (no date) (unknown) (unknown) Emergency Report (units unknown) (unknown) (unknown) (no date) (unknown) (unknown) Exam Narrative: (units unknown) (unknown) (unknown) (no date) (unknown) (unknown) Exam documented above, pertinent findings include: Left lip droop numbness to (units unknown) (unknown) (unknown) (no date) (unknown) (unknown) Exam (units unknown) (unknown) (unknown) (no date) (unknown) (unknown) Extinction or inattention: No abnormality (units unknown) (unknown) (unknown) (no date) (unknown) (unknown) Facial palsy: Minor paralysis, flattened nasolabial fold, asymmetry on smiling (units unknown) (unknown) (unknown) (no date) (unknown) (unknown) GASTROINTESTINAL: Abdomen soft, non-tender (units unknown) (unknown) (unknown) (no date) (unknown) (unknown) GASTROINTESTINAL: negative nausea, vomiting, abdominal pain (units unknown) (unknown) (unknown) (no date) (unknown) (unknown) GENERAL: in no distress, not toxic not dyspneic (units unknown) (unknown) (unknown) (no date) (unknown) (unknown) GENERAL: negative chills, fatigue, malaise, fever, sweats. (units unknown) (unknown) (unknown) (no date) (unknown) (unknown) : negative dysuria, frequency, hematuria (units unknown) (unknown) (unknown) (no date) (unknown) (unknown) General (units unknown) (unknown) (unknown) (no date) (unknown) (unknown) HEAD: Normocephalic. (units unknown) (unknown) (unknown) (no date) (unknown) (unknown) HEENT: negative sinus pain, ear pain, sore throat (units unknown) (unknown) (unknown) (no date) (unknown) (unknown) HPI - Headache (units unknown) (unknown) (unknown) (no date) (unknown) (unknown) HPI Narrative: (units unknown) (unknown) (unknown) (no date) (unknown) (unknown) History of Present Illness (units unknown) (unknown) (unknown) (no date) (unknown) (unknown) Imaging studies independently reviewed: (units unknown) (unknown) (unknown) (no date) (unknown) (unknown) Independently reviewed EKG as above (units unknown) (unknown) (unknown) (no date) (unknown) (unknown) Initial Vital Signs (units unknown) (unknown) (unknown) (no date) (unknown) (unknown) Initial Vital Signs: (units unknown) (unknown) (unknown) (no date) (unknown) (unknown) [address] [address] (units unknown) (unknown) (unknown) (no date) (unknown) (unknown) Ketorolac Tromethamine (Ketorolac 30 Mg/Ml Vial) 15 mg IV NOW ONE (units unknown) (unknown) (unknown) (no date) (unknown) (unknown) Lab Test results independently reviewed as above. Pertinent findings: (units unknown) (unknown) (unknown) (no date) (unknown) (unknown) Last Admin: 07/19/22 10:54 Dose: 15 mg (units unknown) (unknown) (unknown) (no date) (unknown) (unknown) Last Admin: 07/19/22 10:55 Dose: 5 mg (units unknown) (unknown) (unknown) (no date) (unknown) (unknown) Last Admin: 07/19/22 10:56 Dose: 1,000 mls/hr (units unknown) (unknown) (unknown) (no date) (unknown) (unknown) Left arm drift: No drift for full 10 sec (units unknown) (unknown) (unknown) (no date) (unknown) (unknown) Left leg drift: No drift for full 5 sec (units unknown) (unknown) (unknown) (no date) (unknown) (unknown) Level of Conciousness: Alert, keenly responsive (units unknown) (unknown) (unknown) (no date) (unknown) (unknown) Limb ataxia: Absent (units unknown) (unknown) (unknown) (no date) (unknown) (unknown) MDM - Headache (units unknown) (unknown) (unknown) (no date) (unknown) (unknown) MDM Narrative (units unknown) (unknown) (unknown) (no date) (unknown) (unknown) MDM (units unknown) (unknown) (unknown) (no date) (unknown) (unknown) MUSCULOSKELETAL: negative muscle or bony pain (units unknown) (unknown) (unknown) (no date) (unknown) (unknown) Medical decision making narrative: (units unknown) (unknown) (unknown) (no date) (unknown) (unknown) Medical records reviewed: No recent visits for this complaint (units unknown) (unknown) (unknown) (no date) (unknown) (unknown) Mode of arrival: Wheelchair (units unknown) (unknown) (unknown) (no date) (unknown) (unknown) NECK: Trachea midline. (units unknown) (unknown) (unknown) (no date) (unknown) (unknown) NEURO: AOx4. Patient has clear speech. There is slight left lip droop with (units unknown) (unknown) (unknown) (no date) (unknown) (unknown) NEUROLOGIC: Positive headache and weakness, numbness (units unknown) (unknown) (unknown) (no date) (unknown) (unknown) NIH Stroke Scale (units unknown) (unknown) (unknown) (no date) (unknown) (unknown) Narrative (units unknown) (unknown) (unknown) (no date) (unknown) (unknown) Narrative: (units unknown) (unknown) (unknown) (no date) (unknown) (unknown) Open/close eyes, close hand: Performs both tasks correctly (units unknown) (unknown) (unknown) (no date) (unknown) (unknown) Ordered: (units unknown) (unknown) (unknown) (no date) (unknown) (unknown) Orders (units unknown) (unknown) (unknown) (no date) (unknown) (unknown) Oxygen Delivery Method Room Air 07/19/22 09:38 (units unknown) (unknown) (unknown) (no date) (unknown) (unknown) Oxygen Delivery Method Room Air (units unknown) (unknown) (unknown) (no date) (unknown) (unknown) Oxygen Delivery Method (units unknown) (unknown) (unknown) (no date) (unknown) (unknown) PSYCH: Not anxious, is cooperative (units unknown) (unknown) (unknown) (no date) (unknown) (unknown) PTT Partial Thromboplastin Alessandro Stat (units unknown) (unknown) (unknown) (no date) (unknown) (unknown) Patient History (units unknown) (unknown) (unknown) (no date) (unknown) (unknown) Patient brought here by for complaints of global generalized headache (units unknown) (unknown) (unknown) (no date) (unknown) (unknown) Patient: Manasa Mark (units unknown) (unknown) (unknown) (no date) (unknown) (unknown) Prochlorperazine (Prochlorperazine 10 Mg/2 Ml Vial) 5 mg IV NOW ONE (units unknown) (unknown) (unknown) (no date) (unknown) (unknown) Prothrombin Time INR Stat (units unknown) (unknown) (unknown) (no date) (unknown) (unknown) Provider,Ba RAYGOZA [Primary Care Provider] (units unknown) (unknown) (unknown) (no date) (unknown) (unknown) Pulse Oximetry 100 (units unknown) (unknown) (unknown) (no date) (unknown) (unknown) Pulse Oximetry 95 07/19/22 09:38 (units unknown) (unknown) (unknown) (no date) (unknown) (unknown) Pulse Oximetry 95 99 99 (units unknown) (unknown) (unknown) (no date) (unknown) (unknown) Pulse Oximetry 98 (units unknown) (unknown) (unknown) (no date) (unknown) (unknown) Pulse Rate 74 (units unknown) (unknown) (unknown) (no date) (unknown) (unknown) Pulse Rate 82 (units unknown) (unknown) (unknown) (no date) (unknown) (unknown) Pulse Rate 85 07/19/22 09:38 (units unknown) (unknown) (unknown) (no date) (unknown) (unknown) Pulse Rate 85 80 79 (units unknown) (unknown) (unknown) (no date) (unknown) (unknown) R#: [id number] (units unknown) (unknown) (unknown) (no date) (unknown) (unknown) RESPIRATORY: Clear to auscultation. Breath sounds equal bilaterally. No wheezes, (units unknown) (unknown) (unknown) (no date) (unknown) (unknown) RESPIRATORY: negative dyspnea, cough (units unknown) (unknown) (unknown) (no date) (unknown) (unknown) ROS Unobtainable: All systems reviewed + are unremarkable except as noted in HPI (units unknown) (unknown) (unknown) (no date) (unknown) (unknown) Re-evaluations: (units unknown) (unknown) (unknown) (no date) (unknown) (unknown) Referrals: (units unknown) (unknown) (unknown) (no date) (unknown) (unknown) Related Data (units unknown) (unknown) (unknown) (no date) (unknown) (unknown) Respiratory Rate 15 07/19/22 09:38 (units unknown) (unknown) (unknown) (no date) (unknown) (unknown) Respiratory Rate 15 (units unknown) (unknown) (unknown) (no date) (unknown) (unknown) Respiratory Rate (units unknown) (unknown) (unknown) (no date) (unknown) (unknown) Review of Systems (units unknown) (unknown) (unknown) (no date) (unknown) (unknown) Right arm drift: No drift for full 10 sec (units unknown) (unknown) (unknown) (no date) (unknown) (unknown) Right leg drift: No drift for full 5 sec (units unknown) (unknown) (unknown) (no date) (unknown) (unknown) SKIN: Warm and dry (units unknown) (unknown) (unknown) (no date) (unknown) (unknown) SKIN: negative rash, skin lesions (units unknown) (unknown) (unknown) (no date) (unknown) (unknown) Scores (units unknown) (unknown) (unknown) (no date) (unknown) (unknown) Sensory on face/arms/legs: Mild to moderate sensory loss, can tell touch (units unknown) (unknown) (unknown) (no date) (unknown) (unknown) Signed By: (units unknown) (unknown) (unknown) (no date) (unknown) (unknown) Smoking Status: Former smoker (units unknown) (unknown) (unknown) (no date) (unknown) (unknown) Social History (units unknown) (unknown) (unknown) (no date) (unknown) (unknown) Sodium Chloride (Normal Saline 0.9%) 1,000 mls @ 1,000 mls/hr IV BOLUS ONE (units unknown) (unknown) (unknown) (no date) (unknown) (unknown) Stated Complaint: severe migraine T-1 (units unknown) (unknown) (unknown) (no date) (unknown) (unknown) Stop: 07/19/22 10:34 (units unknown) (unknown) (unknown) (no date) (unknown) (unknown) Stop: 07/19/22 11:32 (units unknown) (unknown) (unknown) (no date) (unknown) (unknown) Substance Use Type: does not use (units unknown) (unknown) (unknown) (no date) (unknown) (unknown) Temperature 97.2 F L 07/19/22 09:38 (units unknown) (unknown) (unknown) (no date) (unknown) (unknown) Temperature 97.2 F L (units unknown) (unknown) (unknown) (no date) (unknown) (unknown) Temperature (units unknown) (unknown) (unknown) (no date) (unknown) (unknown) Time Seen by Provider: 07/19/22 10:12 (units unknown) (unknown) (unknown) (no date) (unknown) (unknown) Toradol, Compazine, CBC CMP, EKG (units unknown) (unknown) (unknown) (no date) (unknown) (unknown) Total NIH Stroke scale score: 2 (units unknown) (unknown) (unknown) (no date) (unknown) (unknown) Treatments: (units unknown) (unknown) (unknown) (no date) (unknown) (unknown) Troponin + CK Cardiac Panel Stat (units unknown) (unknown) (unknown) (no date) (unknown) (unknown) Visual reyes: No visual loss (units unknown) (unknown) (unknown) (no date) (unknown) (unknown) Vital Signs - 8 hr (units unknown) (unknown) (unknown) (no date) (unknown) (unknown) Vital Signs (units unknown) (unknown) (unknown) (no date) (unknown) (unknown) Vital signs: (units unknown) (unknown) (unknown) (no date) (unknown) (unknown) acetaminophen [From Percocet] Allergy Verified 07/19/22 09:43 (units unknown) (unknown) (unknown) (no date) (unknown) (unknown) alcohol intake frequency: a few times a week (units unknown) (unknown) (unknown) (no date) (unknown) (unknown) and below (units unknown) (unknown) (unknown) (no date) (unknown) (unknown) chills. No prior history of Dumont's palsy or stroke. Last well known 10:00 a.m. (units unknown) (unknown) (unknown) (no date) (unknown) (unknown) compared to the right. There are strong by loss straight leg raises and hip (units unknown) (unknown) (unknown) (no date) (unknown) (unknown) diazepam [From Valium] Allergy Verified 07/19/22 09:43 (units unknown) (unknown) (unknown) (no date) (unknown) (unknown) face as well as entire arm and hands and fingers. 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 (units unknown) (unknown) (unknown) (no date) (unknown) (unknown) funduscopy. No papilledema. (units unknown) (unknown) (unknown) (no date) (unknown) (unknown) has numbness tingling and weakness of the left face and left arm. Primary care (units unknown) (unknown) (unknown) (no date) (unknown) (unknown) is with [facility]. No recent illness. No cough cold congestion fever (units unknown) (unknown) (unknown) (no date) (unknown) (unknown) migraine (units unknown) (unknown) (unknown) (no date) (unknown) (unknown) morphine Allergy Verified 07/19/22 09:43 (units unknown) (unknown) (unknown) (no date) (unknown) (unknown) of the [place]. This episode is different because she (units unknown) (unknown) (unknown) (no date) (unknown) (unknown) oxycodone Allergy Verified 07/19/22 09:43 (units unknown) (unknown) (unknown) (no date) (unknown) (unknown) puffing of the cheeks as well as attempting to smile. Also with grimacing with (units unknown) (unknown) (unknown) (no date) (unknown) (unknown) rales, or rhonchi. (units unknown) (unknown) (unknown) (no date) (unknown) (unknown) since her COVID immunization/vaccine 1 or [address]. Has [address] scan imaging (units unknown) (unknown) (unknown) (no date) (unknown) (unknown) that started 10:00 a.m. yesterday. Patient has at least 3 headaches a week (units unknown) (unknown) (unknown) (no date) (unknown) (unknown) the eyebrows. There is difference in light touch on the upper and lower left (units unknown) (unknown) (unknown) (no date) (unknown) (unknown) the face and left arm (units unknown) (unknown) (unknown) (no date) (unknown) (unknown) yesterday. (units unknown) (unknown) Result panel 137 (unknown) (no date) (unknown) (unknown) Negative (units unknown) (unknown) Result panel 138 (unknown) (no date) (unknown) (unknown) > 60 ml/min (unknown) (unknown) (no date) (unknown) (unknown) > 60 ml/min (unknown) (unknown) (no date) (unknown) (unknown) 0.6 mg/dl (unknown) (unknown) (no date) (unknown) (unknown) 0.77 mg/dl (unknown) (unknown) (no date) (unknown) (unknown) 1.4 (units unknown) (unknown) (unknown) (no date) (unknown) (unknown) 104 mmol/l (unknown) (unknown) (no date) (unknown) (unknown) 121 mg/dl (unknown) (unknown) (no date) (unknown) (unknown) 121 mg/dl (unknown) (unknown) (no date) (unknown) (unknown) 139 mmol/l (unknown) (unknown) (no date) (unknown) (unknown) 15 mg/dl (unknown) (unknown) (no date) (unknown) (unknown) 19.5 (units unknown) (unknown) (unknown) (no date) (unknown) (unknown) 2.9 g/dl (unknown) (unknown) (no date) (unknown) (unknown) 22 iu/l (unknown) (unknown) (no date) (unknown) (unknown) 24 iu/l (unknown) (unknown) (no date) (unknown) (unknown) 27 mmol/l (unknown) (unknown) (no date) (unknown) (unknown) 4.2 g/dl (unknown) (unknown) (no date) (unknown) (unknown) 4.3 mmol/l (unknown) (unknown) (no date) (unknown) (unknown) 46 u/l (unknown) (unknown) (no date) (unknown) (unknown) 48 u/l (unknown) (unknown) (no date) (unknown) (unknown) 7.1 g/dl (unknown) (unknown) (no date) (unknown) (unknown) 9.1 mg/dl (unknown) (unknown) (no date) (unknown) (unknown) Test not performed % (unknown) (unknown) (no date) (unknown) (unknown) Test not performed % (unknown) (unknown) (no date) (unknown) (unknown) Test not performed ng/ml (unknown) (unknown) (no date) (unknown) (unknown) Test not performed ng/ml (unknown) Result panel 139 (unknown) (no date) (unknown) (unknown) (no value) (units unknown) (unknown) (unknown) (no date) (unknown) (unknown) 07/19/22 11:02 (units unknown) (unknown) (unknown) (no date) (unknown) (unknown) 07/19/22 11:03 (units unknown) (unknown) (unknown) (no date) (unknown) (unknown) 07/19/22 (units unknown) (unknown) (unknown) (no date) (unknown) (unknown) 09:38 07/19/22 (units unknown) (unknown) (unknown) (no date) (unknown) (unknown) 10:08 07/19/22 (units unknown) (unknown) (unknown) (no date) (unknown) (unknown) 10:30 (units unknown) (unknown) (unknown) (no date) (unknown) (unknown) 10:57 07/19/22 (units unknown) (unknown) (unknown) (no date) (unknown) (unknown) 11:00 (units unknown) (unknown) (unknown) (no date) (unknown) (unknown) After history and exam CT angiogram head and neck ordered normal saline, (units unknown) (unknown) (unknown) (no date) (unknown) (unknown) Age/Sex: 37 / F (units unknown) (unknown) (unknown) (no date) (unknown) (unknown) Allergies (units unknown) (unknown) (unknown) (no date) (unknown) (unknown) Allergy/AdvReac Type Severity Reaction Status Date / Time (units unknown) (unknown) (unknown) (no date) (unknown) (unknown) Ask month/age: Answers both questions correctly. (units unknown) (unknown) (unknown) (no date) (unknown) (unknown) BACK: No flank tenderness. (units unknown) (unknown) (unknown) (no date) (unknown) (unknown) Best gaze horizontal: Normal (units unknown) (unknown) (unknown) (no date) (unknown) (unknown) Best language: No aphasia, normal (units unknown) (unknown) (unknown) (no date) (unknown) (unknown) Blood Pressure 121/58 L 124/72 (units unknown) (unknown) (unknown) (no date) (unknown) (unknown) Blood Pressure 149/83 H 07/19/22 09:38 (units unknown) (unknown) (unknown) (no date) (unknown) (unknown) Blood Pressure 149/83 H (units unknown) (unknown) (unknown) (no date) (unknown) (unknown) Blood Pressure (units unknown) (unknown) (unknown) (no date) (unknown) (unknown) CARDIOVASCULAR: Regular rate and rhythm without murmurs (units unknown) (unknown) (unknown) (no date) (unknown) (unknown) CARDIOVASCULAR: negative chest pain, palpitations (units unknown) (unknown) (unknown) (no date) (unknown) (unknown) CC: Headache with left facial and left arm numbness and weakness (units unknown) (unknown) (unknown) (no date) (unknown) (unknown) CT angio head and neck Stat (units unknown) (unknown) (unknown) (no date) (unknown) (unknown) Chief Complaint: Headache (units unknown) (unknown) (unknown) (no date) (unknown) (unknown) Complete Blood Count AUTO DIFF Stat (units unknown) (unknown) (unknown) (no date) (unknown) (unknown) Complicating co-morbidities: Chronic migraines (units unknown) (unknown) (unknown) (no date) (unknown) (unknown) Comprehensive Metabolic Panel Stat (units unknown) (unknown) (unknown) (no date) (unknown) (unknown) Consultations: (units unknown) (unknown) (unknown) (no date) (unknown) (unknown) Course (units unknown) (unknown) (unknown) (no date) (unknown) (unknown) : 1985 Acct:[id number] (units unknown) (unknown) (unknown) (no date) (unknown) (unknown) Data collected from: Patient and (units unknown) (unknown) (unknown) (no date) (unknown) (unknown) Date of Service: 07/19/22 (units unknown) (unknown) (unknown) (no date) (unknown) (unknown) Departure (units unknown) (unknown) (unknown) (no date) (unknown) (unknown) Diagnosis: (units unknown) (unknown) (unknown) (no date) (unknown) (unknown) Differential considered: Includes but not limited to stroke TIA complex (units unknown) (unknown) (unknown) (no date) (unknown) (unknown) Discharge Plan (units unknown) (unknown) (unknown) (no date) (unknown) (unknown) Discontinued Medications (units unknown) (unknown) (unknown) (no date) (unknown) (unknown) Discussion: (units unknown) (unknown) (unknown) (no date) (unknown) (unknown) Documented By: MO (units unknown) (unknown) (unknown) (no date) (unknown) (unknown) Dysarthria: Normal (units unknown) (unknown) (unknown) (no date) (unknown) (unknown) ED Orders (units unknown) (unknown) (unknown) (no date) (unknown) (unknown) ENT: Mucous membranes moist. (units unknown) (unknown) (unknown) (no date) (unknown) (unknown) ER Physician: Isreal Dunne MD (units unknown) (unknown) (unknown) (no date) (unknown) (unknown) EXTREMITIES: No gross deformities. (units unknown) (unknown) (unknown) (no date) (unknown) (unknown) EYES: Pupils equal round PERRLA, EOMI, patient is sensitive to light with (units unknown) (unknown) (unknown) (no date) (unknown) (unknown) Emergency Report (units unknown) (unknown) (unknown) (no date) (unknown) (unknown) Exam Narrative: (units unknown) (unknown) (unknown) (no date) (unknown) (unknown) Exam documented above, pertinent findings include: Left lip droop numbness to (units unknown) (unknown) (unknown) (no date) (unknown) (unknown) Exam (units unknown) (unknown) (unknown) (no date) (unknown) (unknown) Extinction or inattention: No abnormality (units unknown) (unknown) (unknown) (no date) (unknown) (unknown) Facial palsy: Minor paralysis, flattened nasolabial fold, asymmetry on smiling (units unknown) (unknown) (unknown) (no date) (unknown) (unknown) GASTROINTESTINAL: Abdomen soft, non-tender (units unknown) (unknown) (unknown) (no date) (unknown) (unknown) GASTROINTESTINAL: negative nausea, vomiting, abdominal pain (units unknown) (unknown) (unknown) (no date) (unknown) (unknown) GENERAL: in no distress, not toxic not dyspneic (units unknown) (unknown) (unknown) (no date) (unknown) (unknown) GENERAL: negative chills, fatigue, malaise, fever, sweats. (units unknown) (unknown) (unknown) (no date) (unknown) (unknown) : negative dysuria, frequency, hematuria (units unknown) (unknown) (unknown) (no date) (unknown) (unknown) General (units unknown) (unknown) (unknown) (no date) (unknown) (unknown) HEAD: Normocephalic. (units unknown) (unknown) (unknown) (no date) (unknown) (unknown) HEENT: negative sinus pain, ear pain, sore throat (units unknown) (unknown) (unknown) (no date) (unknown) (unknown) HPI - Headache (units unknown) (unknown) (unknown) (no date) (unknown) (unknown) HPI Narrative: (units unknown) (unknown) (unknown) (no date) (unknown) (unknown) History of Present Illness (units unknown) (unknown) (unknown) (no date) (unknown) (unknown) Imaging studies independently reviewed: (units unknown) (unknown) (unknown) (no date) (unknown) (unknown) Independently reviewed EKG as above normal sinus rhythm rate [address] elevation (units unknown) (unknown) (unknown) (no date) (unknown) (unknown) Initial Vital Signs (units unknown) (unknown) (unknown) (no date) (unknown) (unknown) Initial Vital Signs: (units unknown) (unknown) (unknown) (no date) (unknown) (unknown) [address] [address] (units unknown) (unknown) (unknown) (no date) (unknown) (unknown) Ketorolac Tromethamine (Ketorolac 30 Mg/Ml Vial) 15 mg IV NOW ONE (units unknown) (unknown) (unknown) (no date) (unknown) (unknown) Lab Test results independently reviewed as above. Pertinent findings: (units unknown) (unknown) (unknown) (no date) (unknown) (unknown) Last Admin: 07/19/22 10:54 Dose: 15 mg (units unknown) (unknown) (unknown) (no date) (unknown) (unknown) Last Admin: 07/19/22 10:55 Dose: 5 mg (units unknown) (unknown) (unknown) (no date) (unknown) (unknown) Last Admin: 07/19/22 10:56 Dose: 1,000 mls/hr (units unknown) (unknown) (unknown) (no date) (unknown) (unknown) Left arm drift: No drift for full 10 sec (units unknown) (unknown) (unknown) (no date) (unknown) (unknown) Left leg drift: No drift for full 5 sec (units unknown) (unknown) (unknown) (no date) (unknown) (unknown) Level of Conciousness: Alert, keenly responsive (units unknown) (unknown) (unknown) (no date) (unknown) (unknown) Limb ataxia: Absent (units unknown) (unknown) (unknown) (no date) (unknown) (unknown) MDM - Headache (units unknown) (unknown) (unknown) (no date) (unknown) (unknown) MDM Narrative (units unknown) (unknown) (unknown) (no date) (unknown) (unknown) MDM (units unknown) (unknown) (unknown) (no date) (unknown) (unknown) MUSCULOSKELETAL: negative muscle or bony pain (units unknown) (unknown) (unknown) (no date) (unknown) (unknown) Medical decision making narrative: (units unknown) (unknown) (unknown) (no date) (unknown) (unknown) Medical records reviewed: No recent visits for this complaint (units unknown) (unknown) (unknown) (no date) (unknown) (unknown) Mode of arrival: Wheelchair (units unknown) (unknown) (unknown) (no date) (unknown) (unknown) NECK: Trachea midline. (units unknown) (unknown) (unknown) (no date) (unknown) (unknown) NEURO: AOx4. Patient has clear speech. There is slight left lip droop with (units unknown) (unknown) (unknown) (no date) (unknown) (unknown) NEUROLOGIC: Positive headache and weakness, numbness (units unknown) (unknown) (unknown) (no date) (unknown) (unknown) NIH Stroke Scale (units unknown) (unknown) (unknown) (no date) (unknown) (unknown) Narrative (units unknown) (unknown) (unknown) (no date) (unknown) (unknown) Narrative: (units unknown) (unknown) (unknown) (no date) (unknown) (unknown) Open/close eyes, close hand: Performs both tasks correctly (units unknown) (unknown) (unknown) (no date) (unknown) (unknown) Ordered: (units unknown) (unknown) (unknown) (no date) (unknown) (unknown) Orders (units unknown) (unknown) (unknown) (no date) (unknown) (unknown) Oxygen Delivery Method Room Air 07/19/22 09:38 (units unknown) (unknown) (unknown) (no date) (unknown) (unknown) Oxygen Delivery Method Room Air (units unknown) (unknown) (unknown) (no date) (unknown) (unknown) Oxygen Delivery Method (units unknown) (unknown) (unknown) (no date) (unknown) (unknown) PSYCH: Not anxious, is cooperative (units unknown) (unknown) (unknown) (no date) (unknown) (unknown) PTT Partial Thromboplastin [place] Stat (units unknown) (unknown) (unknown) (no date) (unknown) (unknown) Patient History (units unknown) (unknown) (unknown) (no date) (unknown) (unknown) Patient brought here by for complaints of global generalized headache (units unknown) (unknown) (unknown) (no date) (unknown) (unknown) Patient: Manasa Mark (units unknown) (unknown) (unknown) (no date) (unknown) (unknown) Prochlorperazine (Prochlorperazine 10 Mg/2 Ml Vial) 5 mg IV NOW ONE (units unknown) (unknown) (unknown) (no date) (unknown) (unknown) Prothrombin Time INR Stat (units unknown) (unknown) (unknown) (no date) (unknown) (unknown) Provider,Ba RAYGOZA [Primary Care Provider] (units unknown) (unknown) (unknown) (no date) (unknown) (unknown) Pulse Oximetry 100 (units unknown) (unknown) (unknown) (no date) (unknown) (unknown) Pulse Oximetry 95 07/19/22 09:38 (units unknown) (unknown) (unknown) (no date) (unknown) (unknown) Pulse Oximetry 95 99 99 (units unknown) (unknown) (unknown) (no date) (unknown) (unknown) Pulse Oximetry 98 (units unknown) (unknown) (unknown) (no date) (unknown) (unknown) Pulse Rate 74 (units unknown) (unknown) (unknown) (no date) (unknown) (unknown) Pulse Rate 82 (units unknown) (unknown) (unknown) (no date) (unknown) (unknown) Pulse Rate 85 07/19/22 09:38 (units unknown) (unknown) (unknown) (no date) (unknown) (unknown) Pulse Rate 85 80 79 (units unknown) (unknown) (unknown) (no date) (unknown) (unknown) R#: [id number] (units unknown) (unknown) (unknown) (no date) (unknown) (unknown) RESPIRATORY: Clear to auscultation. Breath sounds equal bilaterally. No wheezes, (units unknown) (unknown) (unknown) (no date) (unknown) (unknown) RESPIRATORY: negative dyspnea, cough (units unknown) (unknown) (unknown) (no date) (unknown) (unknown) ROS Unobtainable: All systems reviewed + are unremarkable except as noted in HPI (units unknown) (unknown) (unknown) (no date) (unknown) (unknown) Re-evaluations: (units unknown) (unknown) (unknown) (no date) (unknown) (unknown) Referrals: (units unknown) (unknown) (unknown) (no date) (unknown) (unknown) Related Data (units unknown) (unknown) (unknown) (no date) (unknown) (unknown) Respiratory Rate 15 07/19/22 09:38 (units unknown) (unknown) (unknown) (no date) (unknown) (unknown) Respiratory Rate 15 (units unknown) (unknown) (unknown) (no date) (unknown) (unknown) Respiratory Rate (units unknown) (unknown) (unknown) (no date) (unknown) (unknown) Review of Systems (units unknown) (unknown) (unknown) (no date) (unknown) (unknown) Right arm drift: No drift for full 10 sec (units unknown) (unknown) (unknown) (no date) (unknown) (unknown) Right leg drift: No drift for full 5 sec (units unknown) (unknown) (unknown) (no date) (unknown) (unknown) SKIN: Warm and dry (units unknown) (unknown) (unknown) (no date) (unknown) (unknown) SKIN: negative rash, skin lesions (units unknown) (unknown) (unknown) (no date) (unknown) (unknown) Scores (units unknown) (unknown) (unknown) (no date) (unknown) (unknown) Sensory on face/arms/legs: Mild to moderate sensory loss, can tell touch (units unknown) (unknown) (unknown) (no date) (unknown) (unknown) Signed By: (units unknown) (unknown) (unknown) (no date) (unknown) (unknown) Smoking Status: Former smoker (units unknown) (unknown) (unknown) (no date) (unknown) (unknown) Social History (units unknown) (unknown) (unknown) (no date) (unknown) (unknown) Sodium Chloride (Normal Saline 0.9%) 1,000 mls @ 1,000 mls/hr IV BOLUS ONE (units unknown) (unknown) (unknown) (no date) (unknown) (unknown) Stated Complaint: severe migraine T-1 (units unknown) (unknown) (unknown) (no date) (unknown) (unknown) Stop: 07/19/22 10:34 (units unknown) (unknown) (unknown) (no date) (unknown) (unknown) Stop: 07/19/22 11:32 (units unknown) (unknown) (unknown) (no date) (unknown) (unknown) Substance Use Type: does not use (units unknown) (unknown) (unknown) (no date) (unknown) (unknown) Temperature 97.2 F L 07/19/22 09:38 (units unknown) (unknown) (unknown) (no date) (unknown) (unknown) Temperature 97.2 F L (units unknown) (unknown) (unknown) (no date) (unknown) (unknown) Temperature (units unknown) (unknown) (unknown) (no date) (unknown) (unknown) Time Seen by Provider: 07/19/22 10:12 (units unknown) (unknown) (unknown) (no date) (unknown) (unknown) Toradol, Compazine, CBC CMP, EKG (units unknown) (unknown) (unknown) (no date) (unknown) (unknown) Total NIH Stroke scale score: 2 (units unknown) (unknown) (unknown) (no date) (unknown) (unknown) Treatments: (units unknown) (unknown) (unknown) (no date) (unknown) (unknown) Troponin + CK Cardiac Panel Stat (units unknown) (unknown) (unknown) (no date) (unknown) (unknown) Visual reyes: No visual loss (units unknown) (unknown) (unknown) (no date) (unknown) (unknown) Vital Signs - 8 hr (units unknown) (unknown) (unknown) (no date) (unknown) (unknown) Vital Signs (units unknown) (unknown) (unknown) (no date) (unknown) (unknown) Vital signs: (units unknown) (unknown) (unknown) (no date) (unknown) (unknown) acetaminophen [From Percocet] Allergy Verified 07/19/22 09:43 (units unknown) (unknown) (unknown) (no date) (unknown) (unknown) alcohol intake frequency: a few times a week (units unknown) (unknown) (unknown) (no date) (unknown) (unknown) and below (units unknown) (unknown) (unknown) (no date) (unknown) (unknown) chills. No prior history of Dumont's palsy or stroke. Last well known 10:00 a.m. (units unknown) (unknown) (unknown) (no date) (unknown) (unknown) compared to the right. There are strong by loss straight leg raises and hip (units unknown) (unknown) (unknown) (no date) (unknown) (unknown) diazepam [From Valium] Allergy Verified 07/19/22 09:43 (units unknown) (unknown) (unknown) (no date) (unknown) (unknown) face as well as entire arm and hands and fingers. 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 (units unknown) (unknown) (unknown) (no date) (unknown) (unknown) funduscopy. No papilledema. (units unknown) (unknown) (unknown) (no date) (unknown) (unknown) has numbness tingling and weakness of the left face and left arm. Primary care (units unknown) (unknown) (unknown) (no date) (unknown) (unknown) is with [facility]. No recent illness. No cough cold congestion fever (units unknown) (unknown) (unknown) (no date) (unknown) (unknown) migraine (units unknown) (unknown) (unknown) (no date) (unknown) (unknown) morphine Allergy Verified 07/19/22 09:43 (units unknown) (unknown) (unknown) (no date) (unknown) (unknown) of the [place]. This episode is different because she (units unknown) (unknown) (unknown) (no date) (unknown) (unknown) or depression (units unknown) (unknown) (unknown) (no date) (unknown) (unknown) oxycodone Allergy Verified 07/19/22 09:43 (units unknown) (unknown) (unknown) (no date) (unknown) (unknown) puffing of the cheeks as well as attempting to smile. Also with grimacing with (units unknown) (unknown) (unknown) (no date) (unknown) (unknown) rales, or rhonchi. (units unknown) (unknown) (unknown) (no date) (unknown) (unknown) since her COVID immunization/vaccine 1 or [address]. Has [address] scan imaging (units unknown) (unknown) (unknown) (no date) (unknown) (unknown) that started 10:00 a.m. yesterday. Patient has at least 3 headaches a week (units unknown) (unknown) (unknown) (no date) (unknown) (unknown) the eyebrows. There is difference in light touch on the upper and lower left (units unknown) (unknown) (unknown) (no date) (unknown) (unknown) the face and left arm (units unknown) (unknown) (unknown) (no date) (unknown) (unknown) yesterday. (units unknown) (unknown) Result panel 140 (unknown) (no date) (unknown) (unknown) > 60 ml/min (unknown) (unknown) (no date) (unknown) (unknown) > 60 ml/min (unknown) (unknown) (no date) (unknown) (unknown) < 0.012 ng/ml (unknown) (unknown) (no date) (unknown) (unknown) < 0.012 ng/ml (unknown) (unknown) (no date) (unknown) (unknown) 0.6 mg/dl (unknown) (unknown) (no date) (unknown) (unknown) 0.77 mg/dl (unknown) (unknown) (no date) (unknown) (unknown) 1.4 (units unknown) (unknown) (unknown) (no date) (unknown) (unknown) 104 mmol/l (unknown) (unknown) (no date) (unknown) (unknown) 121 mg/dl (unknown) (unknown) (no date) (unknown) (unknown) 121 mg/dl (unknown) (unknown) (no date) (unknown) (unknown) 139 mmol/l (unknown) (unknown) (no date) (unknown) (unknown) 15 mg/dl (unknown) (unknown) (no date) (unknown) (unknown) 19.5 (units unknown) (unknown) (unknown) (no date) (unknown) (unknown) 2.9 g/dl (unknown) (unknown) (no date) (unknown) (unknown) 22 iu/l (unknown) (unknown) (no date) (unknown) (unknown) 24 iu/l (unknown) (unknown) (no date) (unknown) (unknown) 27 mmol/l (unknown) (unknown) (no date) (unknown) (unknown) 4.2 g/dl (unknown) (unknown) (no date) (unknown) (unknown) 4.3 mmol/l (unknown) (unknown) (no date) (unknown) (unknown) 46 u/l (unknown) (unknown) (no date) (unknown) (unknown) 48 u/l (unknown) (unknown) (no date) (unknown) (unknown) 7.1 g/dl (unknown) (unknown) (no date) (unknown) (unknown) 9.1 mg/dl (unknown) (unknown) (no date) (unknown) (unknown) Test not performed % (unknown) (unknown) (no date) (unknown) (unknown) Test not performed % (unknown) (unknown) (no date) (unknown) (unknown) Test not performed ng/ml (unknown) (unknown) (no date) (unknown) (unknown) Test not performed ng/ml (unknown) Result panel 141 (unknown) (no date) (unknown) (unknown) (no value) (units unknown) (unknown) (unknown) (no date) (unknown) (unknown) 07/19/22 07/19/22 07/19/22 Range/Units (units unknown) (unknown) (unknown) (no date) (unknown) (unknown) 07/19/22 10:05 (units unknown) (unknown) (unknown) (no date) (unknown) (unknown) 07/19/22 11:03 (units unknown) (unknown) (unknown) (no date) (unknown) (unknown) 07/19/22 11:13 (units unknown) (unknown) (unknown) (no date) (unknown) (unknown) 07/19/22 Range/Units (units unknown) (unknown) (unknown) (no date) (unknown) (unknown) 07/19/22 (units unknown) (unknown) (unknown) (no date) (unknown) (unknown) 09:38 07/19/22 (units unknown) (unknown) (unknown) (no date) (unknown) (unknown) 10:05 10:05 10:05 (units unknown) (unknown) (unknown) (no date) (unknown) (unknown) 10:05 (units unknown) (unknown) (unknown) (no date) (unknown) (unknown) 10:08 07/19/22 (units unknown) (unknown) (unknown) (no date) (unknown) (unknown) 10:30 (units unknown) (unknown) (unknown) (no date) (unknown) (unknown) 10:57 07/19/22 (units unknown) (unknown) (unknown) (no date) (unknown) (unknown) 11:00 07/19/22 (units unknown) (unknown) (unknown) (no date) (unknown) (unknown) 11:00 (units unknown) (unknown) (unknown) (no date) (unknown) (unknown) 11:30 07/19/22 (units unknown) (unknown) (unknown) (no date) (unknown) (unknown) 11:31 07/19/22 (units unknown) (unknown) (unknown) (no date) (unknown) (unknown) 11:31 (units unknown) (unknown) (unknown) (no date) (unknown) (unknown) 12:00 07/19/22 (units unknown) (unknown) (unknown) (no date) (unknown) (unknown) 12:01 07/19/22 (units unknown) (unknown) (unknown) (no date) (unknown) (unknown) 12:01 (units unknown) (unknown) (unknown) (no date) (unknown) (unknown) 13:32 (units unknown) (unknown) (unknown) (no date) (unknown) (unknown) ALT (<35) IU/L (units unknown) (unknown) (unknown) (no date) (unknown) (unknown) ALT 24 (<35) IU/L (units unknown) (unknown) (unknown) (no date) (unknown) (unknown) APTT (26-36) SECONDS (units unknown) (unknown) (unknown) (no date) (unknown) (unknown) APTT 33 (26-36) SECONDS (units unknown) (unknown) (unknown) (no date) (unknown) (unknown) AST (14-36) IU/L (units unknown) (unknown) (unknown) (no date) (unknown) (unknown) AST 22 (14-36) IU/L (units unknown) (unknown) (unknown) (no date) (unknown) (unknown) Activity Restrictions/Additio nal Instructions: (units unknown) (unknown) (unknown) (no date) (unknown) (unknown) Admin: 07/19/22 10:56 Dose: 1,000 mls/hr (units unknown) (unknown) (unknown) (no date) (unknown) (unknown) After history and exam CT angiogram head and neck ordered normal saline, (units unknown) (unknown) (unknown) (no date) (unknown) (unknown) Age/Sex: 37 / F (units unknown) (unknown) (unknown) (no date) (unknown) (unknown) Albumin (3.5-5.0) g/dL (units unknown) (unknown) (unknown) (no date) (unknown) (unknown) Albumin 4.2 (3.5-5.0) g/dL (units unknown) (unknown) (unknown) (no date) (unknown) (unknown) Albumin/Globulin Ratio (1.0-2.8) (units unknown) (unknown) (unknown) (no date) (unknown) (unknown) Albumin/Globulin Ratio 1.4 (1.0-2.8) (units unknown) (unknown) (unknown) (no date) (unknown) (unknown) Alkaline Phosphatase (38-126) U/L (units unknown) (unknown) (unknown) (no date) (unknown) (unknown) Alkaline Phosphatase 46 (38-126) U/L (units unknown) (unknown) (unknown) (no date) (unknown) (unknown) Allergies (units unknown) (unknown) (unknown) (no date) (unknown) (unknown) Allergy/AdvReac Type Severity Reaction Status Date / Time (units unknown) (unknown) (unknown) (no date) (unknown) (unknown) Ask month/age: Answers both questions correctly. (units unknown) (unknown) (unknown) (no date) (unknown) (unknown) BACK: No flank tenderness. (units unknown) (unknown) (unknown) (no date) (unknown) (unknown) BUN (7-17) mg/dL (units unknown) (unknown) (unknown) (no date) (unknown) (unknown) BUN 15 (7-17) mg/dL (units unknown) (unknown) (unknown) (no date) (unknown) (unknown) BUN/Creatinine Ratio (6-22) (units unknown) (unknown) (unknown) (no date) (unknown) (unknown) BUN/Creatinine Ratio 19.5 (6-22) (units unknown) (unknown) (unknown) (no date) (unknown) (unknown) Baso # (Auto) (0-100) /uL (units unknown) (unknown) (unknown) (no date) (unknown) (unknown) Baso # (Auto) 0 (0-100) /uL (units unknown) (unknown) (unknown) (no date) (unknown) (unknown) Baso % (Auto) (0-2) % (units unknown) (unknown) (unknown) (no date) (unknown) (unknown) Baso % (Auto) 0.3 (0-2) % (units unknown) (unknown) (unknown) (no date) (unknown) (unknown) Bedside Urine Bilirubin - Negative (units unknown) (unknown) (unknown) (no date) (unknown) (unknown) Bedside Urine Glucose Negative (units unknown) (unknown) (unknown) (no date) (unknown) (unknown) Bedside Urine Ketone - Negative (units unknown) (unknown) (unknown) (no date) (unknown) (unknown) Bedside Urine Leukocytes - Negative (units unknown) (unknown) (unknown) (no date) (unknown) (unknown) Bedside Urine Nitrite - Negative (units unknown) (unknown) (unknown) (no date) (unknown) (unknown) Bedside Urine Occult Blood - Negative (units unknown) (unknown) (unknown) (no date) (unknown) (unknown) Bedside Urine Protein - Negative (units unknown) (unknown) (unknown) (no date) (unknown) (unknown) Bedside Urine Urobilinogen - Negative (units unknown) (unknown) (unknown) (no date) (unknown) (unknown) Bedside Urine pH 7.5 (units unknown) (unknown) (unknown) (no date) (unknown) (unknown) Best gaze horizontal: Normal (units unknown) (unknown) (unknown) (no date) (unknown) (unknown) Best language: No aphasia, normal (units unknown) (unknown) (unknown) (no date) (unknown) (unknown) Blood Pressure 119/66 (units unknown) (unknown) (unknown) (no date) (unknown) (unknown) Blood Pressure 121/58 L 124/72 (units unknown) (unknown) (unknown) (no date) (unknown) (unknown) Blood Pressure 149/83 H 07/19/22 09:38 (units unknown) (unknown) (unknown) (no date) (unknown) (unknown) Blood Pressure 149/83 H (units unknown) (unknown) (unknown) (no date) (unknown) (unknown) Blood Pressure 92/61 108/58 L (units unknown) (unknown) (unknown) (no date) (unknown) (unknown) Blood Pressure (units unknown) (unknown) (unknown) (no date) (unknown) (unknown) CARDIOVASCULAR: Regular rate and rhythm without murmurs (units unknown) (unknown) (unknown) (no date) (unknown) (unknown) CARDIOVASCULAR: negative chest pain, palpitations (units unknown) (unknown) (unknown) (no date) (unknown) (unknown) CC: Headache with left facial and left arm numbness and weakness (units unknown) (unknown) (unknown) (no date) (unknown) (unknown) CK-MB (CK-2) Rel Index TNP (units unknown) (unknown) (unknown) (no date) (unknown) (unknown) CK-MB (CK-2) Rel Index (units unknown) (unknown) (unknown) (no date) (unknown) (unknown) CK-MB (CK-2) TNP (units unknown) (unknown) (unknown) (no date) (unknown) (unknown) CK-MB (CK-2) (units unknown) (unknown) (unknown) (no date) (unknown) (unknown) CT angio head and neck Stat (units unknown) (unknown) (unknown) (no date) (unknown) (unknown) Calcium (8.4-10.2) mg/dL (units unknown) (unknown) (unknown) (no date) (unknown) (unknown) Calcium 9.1 (8.4-10.2) mg/dL (units unknown) (unknown) (unknown) (no date) (unknown) (unknown) Carbon Dioxide (22-32) mmol/L (units unknown) (unknown) (unknown) (no date) (unknown) (unknown) Carbon Dioxide 27 (22-32) mmol/L (units unknown) (unknown) (unknown) (no date) (unknown) (unknown) Chief Complaint: Headache (units unknown) (unknown) (unknown) (no date) (unknown) (unknown) Chloride (98-107) mmol/L (units unknown) (unknown) (unknown) (no date) (unknown) (unknown) Chloride 104 (98-107) mmol/L (units unknown) (unknown) (unknown) (no date) (unknown) (unknown) Clinical Impression: (units unknown) (unknown) (unknown) (no date) (unknown) (unknown) Complete Blood Count AUTO DIFF Stat (units unknown) (unknown) (unknown) (no date) (unknown) (unknown) Complicating co-morbidities: Chronic migraines (units unknown) (unknown) (unknown) (no date) (unknown) (unknown) Comprehensive Metabolic Panel Stat (units unknown) (unknown) (unknown) (no date) (unknown) (unknown) Consultations: (units unknown) (unknown) (unknown) (no date) (unknown) (unknown) Course (units unknown) (unknown) (unknown) (no date) (unknown) (unknown) Creatinine (0.52-1.04) mg/dL (units unknown) (unknown) (unknown) (no date) (unknown) (unknown) Creatinine 0.77 (0.52-1.04) mg/dL (units unknown) (unknown) (unknown) (no date) (unknown) (unknown) : 1985 Acct:[id number] (units unknown) (unknown) (unknown) (no date) (unknown) (unknown) Data collected from: Patient and (units unknown) (unknown) (unknown) (no date) (unknown) (unknown) Date of Service: 07/19/22 (units unknown) (unknown) (unknown) (no date) (unknown) (unknown) Departure (units unknown) (unknown) (unknown) (no date) (unknown) (unknown) Diagnosis: (units unknown) (unknown) (unknown) (no date) (unknown) (unknown) Differential considered: Includes but not limited to stroke TIA complex (units unknown) (unknown) (unknown) (no date) (unknown) (unknown) Discharge Plan (units unknown) (unknown) (unknown) (no date) (unknown) (unknown) Discontinued Medications (units unknown) (unknown) (unknown) (no date) (unknown) (unknown) Discussion: (units unknown) (unknown) (unknown) (no date) (unknown) (unknown) Documented By: MO (units unknown) (unknown) (unknown) (no date) (unknown) (unknown) Dysarthria: Normal (units unknown) (unknown) (unknown) (no date) (unknown) (unknown) ED Orders (units unknown) (unknown) (unknown) (no date) (unknown) (unknown) EKG-12 Lead Stat (units unknown) (unknown) (unknown) (no date) (unknown) (unknown) ENT: Mucous membranes moist. (units unknown) (unknown) (unknown) (no date) (unknown) (unknown) ER Physician: Isreal Dunne MD (units unknown) (unknown) (unknown) (no date) (unknown) (unknown) EXTREMITIES: No gross deformities. (units unknown) (unknown) (unknown) (no date) (unknown) (unknown) EYES: Pupils equal round PERRLA, EOMI, patient is sensitive to light with (units unknown) (unknown) (unknown) (no date) (unknown) (unknown) Emergency Report (units unknown) (unknown) (unknown) (no date) (unknown) (unknown) Eos # (Auto) (0-450) /uL (units unknown) (unknown) (unknown) (no date) (unknown) (unknown) Eos # (Auto) 100 (0-450) /uL (units unknown) (unknown) (unknown) (no date) (unknown) (unknown) Eos % (Auto) (2-4) % (units unknown) (unknown) (unknown) (no date) (unknown) (unknown) Eos % (Auto) 1.7 L (2-4) % (units unknown) (unknown) (unknown) (no date) (unknown) (unknown) Esterase (units unknown) (unknown) (unknown) (no date) (unknown) (unknown) Estimated GFR > 60 (>60) mL/min (units unknown) (unknown) (unknown) (no date) (unknown) (unknown) Estimated GFR (>60) mL/min (units unknown) (unknown) (unknown) (no date) (unknown) (unknown) Exam Narrative: (units unknown) (unknown) (unknown) (no date) (unknown) (unknown) Exam documented above, pertinent findings include: Left lip droop numbness to (units unknown) (unknown) (unknown) (no date) (unknown) (unknown) Exam (units unknown) (unknown) (unknown) (no date) (unknown) (unknown) Extinction or inattention: No abnormality (units unknown) (unknown) (unknown) (no date) (unknown) (unknown) Facial palsy: Minor paralysis, flattened nasolabial fold, asymmetry on smiling (units unknown) (unknown) (unknown) (no date) (unknown) (unknown) GASTROINTESTINAL: Abdomen soft, non-tender (units unknown) (unknown) (unknown) (no date) (unknown) (unknown) GASTROINTESTINAL: negative nausea, vomiting, abdominal pain (units unknown) (unknown) (unknown) (no date) (unknown) (unknown) GENERAL: in no distress, not toxic not dyspneic (units unknown) (unknown) (unknown) (no date) (unknown) (unknown) GENERAL: negative chills, fatigue, malaise, fever, sweats. (units unknown) (unknown) (unknown) (no date) (unknown) (unknown) : negative dysuria, frequency, hematuria (units unknown) (unknown) (unknown) (no date) (unknown) (unknown) General (units unknown) (unknown) (unknown) (no date) (unknown) (unknown) Globulin (1.7-4.1) g/dL (units unknown) (unknown) (unknown) (no date) (unknown) (unknown) Globulin 2.9 (1.7-4.1) g/dL (units unknown) (unknown) (unknown) (no date) (unknown) (unknown) Glucose (70-100) mg/dL (units unknown) (unknown) (unknown) (no date) (unknown) (unknown) Glucose 121 H (70-100) mg/dL (units unknown) (unknown) (unknown) (no date) (unknown) (unknown) HEAD: Normocephalic. (units unknown) (unknown) (unknown) (no date) (unknown) (unknown) HEENT: negative sinus pain, ear pain, sore throat (units unknown) (unknown) (unknown) (no date) (unknown) (unknown) HPI - Headache (units unknown) (unknown) (unknown) (no date) (unknown) (unknown) HPI Narrative: (units unknown) (unknown) (unknown) (no date) (unknown) (unknown) Hct (36-46) % (units unknown) (unknown) (unknown) (no date) (unknown) (unknown) Hct 39.3 (36-46) % (units unknown) (unknown) (unknown) (no date) (unknown) (unknown) Headache, migraine (units unknown) (unknown) (unknown) (no date) (unknown) (unknown) Hgb (12.0-16.0) g/dL (units unknown) (unknown) (unknown) (no date) (unknown) (unknown) Hgb 13.3 (12.0-16.0) g/dL (units unknown) (unknown) (unknown) (no date) (unknown) (unknown) History of Present Illness (units unknown) (unknown) (unknown) (no date) (unknown) (unknown) INR (0.9-1.3) (units unknown) (unknown) (unknown) (no date) (unknown) (unknown) INR 1.1 (0.9-1.3) (units unknown) (unknown) (unknown) (no date) (unknown) (unknown) Imaging studies independently reviewed: (units unknown) (unknown) (unknown) (no date) (unknown) (unknown) Independently reviewed EKG as above normal sinus rhythm rate [address] elevation (units unknown) (unknown) (unknown) (no date) (unknown) (unknown) Initial Vital Signs (units unknown) (unknown) (unknown) (no date) (unknown) (unknown) Initial Vital Signs: (units unknown) (unknown) (unknown) (no date) (unknown) (unknown) Instructions: DI for Migraine (units unknown) (unknown) (unknown) (no date) (unknown) (unknown) [address] [address] (units unknown) (unknown) (unknown) (no date) (unknown) (unknown) Ketorolac Tromethamine (Ketorolac 30 Mg/Ml Vial) 15 mg IV NOW ONE (units unknown) (unknown) (unknown) (no date) (unknown) (unknown) Lab Data (units unknown) (unknown) (unknown) (no date) (unknown) (unknown) Lab Results (units unknown) (unknown) (unknown) (no date) (unknown) (unknown) Lab Test results independently reviewed as above. Pertinent findings: (units unknown) (unknown) (unknown) (no date) (unknown) (unknown) Labs: (units unknown) (unknown) (unknown) (no date) (unknown) (unknown) Last Admin: 07/19/22 10:54 Dose: 15 mg (units unknown) (unknown) (unknown) (no date) (unknown) (unknown) Last Admin: 07/19/22 10:55 Dose: 5 mg (units unknown) (unknown) (unknown) (no date) (unknown) (unknown) Last Infusion: 07/19/22 12:16 Dose: 0 mls/hr (units unknown) (unknown) (unknown) (no date) (unknown) (unknown) Left arm drift: No drift for full 10 sec (units unknown) (unknown) (unknown) (no date) (unknown) (unknown) Left leg drift: No drift for full 5 sec (units unknown) (unknown) (unknown) (no date) (unknown) (unknown) Level of Conciousness: Alert, keenly responsive (units unknown) (unknown) (unknown) (no date) (unknown) (unknown) Limb ataxia: Absent (units unknown) (unknown) (unknown) (no date) (unknown) (unknown) Lymph # (Auto) (4500-6715) /uL (units unknown) (unknown) (unknown) (no date) (unknown) (unknown) Lymph # (Auto) 2400 (0355-3343) /uL (units unknown) (unknown) (unknown) (no date) (unknown) (unknown) Lymph % (Auto) (25-40) % (units unknown) (unknown) (unknown) (no date) (unknown) (unknown) Lymph % (Auto) 36.1 (25-40) % (units unknown) (unknown) (unknown) (no date) (unknown) (unknown) MCH (26-34) PG (units unknown) (unknown) (unknown) (no date) (unknown) (unknown) MCH 29.7 (26-34) PG (units unknown) (unknown) (unknown) (no date) (unknown) (unknown) MCHC (30-36) % (units unknown) (unknown) (unknown) (no date) (unknown) (unknown) MCHC 34.0 (30-36) % (units unknown) (unknown) (unknown) (no date) (unknown) (unknown) MCV (80-100) fL (units unknown) (unknown) (unknown) (no date) (unknown) (unknown) MCV 87.4 (80-100) fL (units unknown) (unknown) (unknown) (no date) (unknown) (unknown) MDM - Headache (units unknown) (unknown) (unknown) (no date) (unknown) (unknown) MDM Narrative (units unknown) (unknown) (unknown) (no date) (unknown) (unknown) MDM (units unknown) (unknown) (unknown) (no date) (unknown) (unknown) MUSCULOSKELETAL: negative muscle or bony pain (units unknown) (unknown) (unknown) (no date) (unknown) (unknown) Medical decision making narrative: (units unknown) (unknown) (unknown) (no date) (unknown) (unknown) Medical records reviewed: No recent visits for this complaint (units unknown) (unknown) (unknown) (no date) (unknown) (unknown) Mode of arrival: Wheelchair (units unknown) (unknown) (unknown) (no date) (unknown) (unknown) Swain # (Auto) (0-900) /uL (units unknown) (unknown) (unknown) (no date) (unknown) (unknown) Swain # (Auto) 300 (0-900) /uL (units unknown) (unknown) (unknown) (no date) (unknown) (unknown) Swain % (Auto) (3-14) % (units unknown) (unknown) (unknown) (no date) (unknown) (unknown) Swain % (Auto) 4.9 (3-14) % (units unknown) (unknown) (unknown) (no date) (unknown) (unknown) NECK: Trachea midline. (units unknown) (unknown) (unknown) (no date) (unknown) (unknown) NEURO: AOx4. Patient has clear speech. There is slight left lip droop with (units unknown) (unknown) (unknown) (no date) (unknown) (unknown) NEUROLOGIC: Positive headache and weakness, numbness (units unknown) (unknown) (unknown) (no date) (unknown) (unknown) NIH Stroke Scale (units unknown) (unknown) (unknown) (no date) (unknown) (unknown) Narrative (units unknown) (unknown) (unknown) (no date) (unknown) (unknown) Narrative: (units unknown) (unknown) (unknown) (no date) (unknown) (unknown) Neut # (Auto) (8613-8810) /uL (units unknown) (unknown) (unknown) (no date) (unknown) (unknown) Neut # (Auto) 3800 (4086-4234) /uL (units unknown) (unknown) (unknown) (no date) (unknown) (unknown) Neut % (Auto) (50-75) % (units unknown) (unknown) (unknown) (no date) (unknown) (unknown) Neut % (Auto) 57.0 (50-75) % (units unknown) (unknown) (unknown) (no date) (unknown) (unknown) No driving 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 Please do call your family doctor this (units unknown) (unknown) (unknown) (no date) (unknown) (unknown) Open/close eyes, close hand: Performs both tasks correctly (units unknown) (unknown) (unknown) (no date) (unknown) (unknown) Ordered: (units unknown) (unknown) (unknown) (no date) (unknown) (unknown) Orders (units unknown) (unknown) (unknown) (no date) (unknown) (unknown) Oxygen Delivery Method Room Air 07/19/22 09:38 (units unknown) (unknown) (unknown) (no date) (unknown) (unknown) Oxygen Delivery Method Room Air (units unknown) (unknown) (unknown) (no date) (unknown) (unknown) Oxygen Delivery Method (units unknown) (unknown) (unknown) (no date) (unknown) (unknown) PSYCH: Not anxious, is cooperative (units unknown) (unknown) (unknown) (no date) (unknown) (unknown) PT (10.1-12.7) SECONDS (units unknown) (unknown) (unknown) (no date) (unknown) (unknown) PT 12.5 (10.1-12.7) SECONDS (units unknown) (unknown) (unknown) (no date) (unknown) (unknown) PTT Partial Thromboplastin [place] Stat (units unknown) (unknown) (unknown) (no date) (unknown) (unknown) Patient Disposition: Home (units unknown) (unknown) (unknown) (no date) (unknown) (unknown) Patient History (units unknown) (unknown) (unknown) (no date) (unknown) (unknown) Patient brought here by for complaints of global generalized headache (units unknown) (unknown) (unknown) (no date) (unknown) (unknown) Patient: Manasa Mark (units unknown) (unknown) (unknown) (no date) (unknown) (unknown) Plt Count (150-400) X103/uL (units unknown) (unknown) (unknown) (no date) (unknown) (unknown) Plt Count 185 (150-400) X103/uL (units unknown) (unknown) (unknown) (no date) (unknown) (unknown) Point of Care Testing (units unknown) (unknown) (unknown) (no date) (unknown) (unknown) Potassium (3.4-5.1) mmol/L (units unknown) (unknown) (unknown) (no date) (unknown) (unknown) Potassium 4.3 (3.4-5.1) mmol/L (units unknown) (unknown) (unknown) (no date) (unknown) (unknown) Test Results Negative (units unknown) (unknown) (unknown) (no date) (unknown) (unknown) Test Serum,Qual Stat (units unknown) (unknown) (unknown) (no date) (unknown) (unknown) Prochlorperazine (Prochlorperazine 10 Mg/2 Ml Vial) 5 mg IV NOW ONE (units unknown) (unknown) (unknown) (no date) (unknown) (unknown) Prothrombin Time INR Stat (units unknown) (unknown) (unknown) (no date) (unknown) (unknown) Provider,Ba RAYGOZA [Primary Care Provider] (units unknown) (unknown) (unknown) (no date) (unknown) (unknown) Pulse Oximetry 100 98 98 (units unknown) (unknown) (unknown) (no date) (unknown) (unknown) Pulse Oximetry 85 L (units unknown) (unknown) (unknown) (no date) (unknown) (unknown) Pulse Oximetry 95 07/19/22 09:38 (units unknown) (unknown) (unknown) (no date) (unknown) (unknown) Pulse Oximetry 95 99 99 (units unknown) (unknown) (unknown) (no date) (unknown) (unknown) Pulse Oximetry 98 (units unknown) (unknown) (unknown) (no date) (unknown) (unknown) Pulse Oximetry 99 99 (units unknown) (unknown) (unknown) (no date) (unknown) (unknown) Pulse Rate 74 (units unknown) (unknown) (unknown) (no date) (unknown) (unknown) Pulse Rate 78 78 (units unknown) (unknown) (unknown) (no date) (unknown) (unknown) Pulse Rate 82 76 84 (units unknown) (unknown) (unknown) (no date) (unknown) (unknown) Pulse Rate 85 07/19/22 09:38 (units unknown) (unknown) (unknown) (no date) (unknown) (unknown) Pulse Rate 85 80 79 (units unknown) (unknown) (unknown) (no date) (unknown) (unknown) Pulse Rate 99 H (units unknown) (unknown) (unknown) (no date) (unknown) (unknown) R#: [id number] (units unknown) (unknown) (unknown) (no date) (unknown) (unknown) RBC (4.0-5.2) X106/uL (units unknown) (unknown) (unknown) (no date) (unknown) (unknown) RBC 4.50 (4.0-5.2) X106/uL (units unknown) (unknown) (unknown) (no date) (unknown) (unknown) RDW (11.6-14.8) % (units unknown) (unknown) (unknown) (no date) (unknown) (unknown) RDW 13.6 (11.6-14.8) % (units unknown) (unknown) (unknown) (no date) (unknown) (unknown) RESPIRATORY: Clear to auscultation. Breath sounds equal bilaterally. No wheezes, (units unknown) (unknown) (unknown) (no date) (unknown) (unknown) RESPIRATORY: negative dyspnea, cough (units unknown) (unknown) (unknown) (no date) (unknown) (unknown) ROS Unobtainable: All systems reviewed + are unremarkable except as noted in HPI (units unknown) (unknown) (unknown) (no date) (unknown) (unknown) Re-evaluations: (units unknown) (unknown) (unknown) (no date) (unknown) (unknown) Referrals: (units unknown) (unknown) (unknown) (no date) (unknown) (unknown) Related Data (units unknown) (unknown) (unknown) (no date) (unknown) (unknown) Respiratory Rate 15 07/19/22 09:38 (units unknown) (unknown) (unknown) (no date) (unknown) (unknown) Respiratory Rate 15 (units unknown) (unknown) (unknown) (no date) (unknown) (unknown) Respiratory Rate (units unknown) (unknown) (unknown) (no date) (unknown) (unknown) Review of Systems (units unknown) (unknown) (unknown) (no date) (unknown) (unknown) Right arm drift: No drift for full 10 sec (units unknown) (unknown) (unknown) (no date) (unknown) (unknown) Right leg drift: No drift for full 5 sec (units unknown) (unknown) (unknown) (no date) (unknown) (unknown) SKIN: Warm and dry (units unknown) (unknown) (unknown) (no date) (unknown) (unknown) SKIN: negative rash, skin lesions (units unknown) (unknown) (unknown) (no date) (unknown) (unknown) Scores (units unknown) (unknown) (unknown) (no date) (unknown) (unknown) Sensory on face/arms/legs: Mild to moderate sensory loss, can tell touch (units unknown) (unknown) (unknown) (no date) (unknown) (unknown) Serum , Qual (Negative) (units unknown) (unknown) (unknown) (no date) (unknown) (unknown) Serum , Qual Negative (Negative) (units unknown) (unknown) (unknown) (no date) (unknown) (unknown) Signed By: (units unknown) (unknown) (unknown) (no date) (unknown) (unknown) Smoking Status: Former smoker (units unknown) (unknown) (unknown) (no date) (unknown) (unknown) Social History (units unknown) (unknown) (unknown) (no date) (unknown) (unknown) Sodium (137-145) mmol/L (units unknown) (unknown) (unknown) (no date) (unknown) (unknown) Sodium 139 (137-145) mmol/L (units unknown) (unknown) (unknown) (no date) (unknown) (unknown) Sodium Chloride (Normal Saline 0.9%) 1,000 mls @ 1,000 mls/hr IV BOLUS ONE (units unknown) (unknown) (unknown) (no date) (unknown) (unknown) Stand Alone Forms: Patient Portal/API, Work Release Note (units unknown) (unknown) (unknown) (no date) (unknown) (unknown) Stated Complaint: severe migraine T-1 (units unknown) (unknown) (unknown) (no date) (unknown) (unknown) Stop: 07/19/22 10:34 (units unknown) (unknown) (unknown) (no date) (unknown) (unknown) Stop: 07/19/22 11:32 (units unknown) (unknown) (unknown) (no date) (unknown) (unknown) Substance Use Type: does not use (units unknown) (unknown) (unknown) (no date) (unknown) (unknown) Temperature 97.2 F L 07/19/22 09:38 (units unknown) (unknown) (unknown) (no date) (unknown) (unknown) Temperature 97.2 F L (units unknown) (unknown) (unknown) (no date) (unknown) (unknown) Temperature (units unknown) (unknown) (unknown) (no date) (unknown) (unknown) Time Seen by Provider: 07/19/22 10:12 (units unknown) (unknown) (unknown) (no date) (unknown) (unknown) Toradol, Compazine, CBC CMP, EKG (units unknown) (unknown) (unknown) (no date) (unknown) (unknown) Total Bilirubin (0.2-1.3) mg/dL (units unknown) (unknown) (unknown) (no date) (unknown) (unknown) Total Bilirubin 0.6 (0.2-1.3) mg/dL (units unknown) (unknown) (unknown) (no date) (unknown) (unknown) Total Creatine Kinase (30-135) U/L (units unknown) (unknown) (unknown) (no date) (unknown) (unknown) Total Creatine Kinase 48 (30-135) U/L (units unknown) (unknown) (unknown) (no date) (unknown) (unknown) Total NIH Stroke scale score: 2 (units unknown) (unknown) (unknown) (no date) (unknown) (unknown) Total Protein (6.3-8.2) g/dL (units unknown) (unknown) (unknown) (no date) (unknown) (unknown) Total Protein 7.1 (6.3-8.2) g/dL (units unknown) (unknown) (unknown) (no date) (unknown) (unknown) Treatments: (units unknown) (unknown) (unknown) (no date) (unknown) (unknown) Troponin + CK Cardiac Panel Stat (units unknown) (unknown) (unknown) (no date) (unknown) (unknown) Troponin I < 0.012 (0.01-0.034) ng/mL (units unknown) (unknown) (unknown) (no date) (unknown) (unknown) Troponin I (0.01-0.034) ng/mL (units unknown) (unknown) (unknown) (no date) (unknown) (unknown) Urine Dip (units unknown) (unknown) (unknown) (no date) (unknown) (unknown) Urine Specific [place] 1.010 (units unknown) (unknown) (unknown) (no date) (unknown) (unknown) Visual reyes: No visual loss (units unknown) (unknown) (unknown) (no date) (unknown) (unknown) Vital Signs - 8 hr (units unknown) (unknown) (unknown) (no date) (unknown) (unknown) Vital Signs (units unknown) (unknown) (unknown) (no date) (unknown) (unknown) Vital signs: (units unknown) (unknown) (unknown) (no date) (unknown) (unknown) WBC (4.5-11.0) X103/uL (units unknown) (unknown) (unknown) (no date) (unknown) (unknown) WBC 6.6 (4.5-11.0) X103/uL (units unknown) (unknown) (unknown) (no date) (unknown) (unknown) [Embedded Image Not Available] (units unknown) (unknown) (unknown) (no date) (unknown) (unknown) acetaminophen [From Percocet] Allergy Verified 07/19/22 09:43 (units unknown) (unknown) (unknown) (no date) (unknown) (unknown) alcohol intake frequency: a few times a week (units unknown) (unknown) (unknown) (no date) (unknown) (unknown) and below (units unknown) (unknown) (unknown) (no date) (unknown) (unknown) any questions or concerns. Today's laboratory studies and imaging are (units unknown) (unknown) (unknown) (no date) (unknown) (unknown) chills. No prior history of Dumont's palsy or stroke. Last well known 10:00 a.m. (units unknown) (unknown) (unknown) (no date) (unknown) (unknown) compared to the right. There are strong by loss straight leg raises and hip (units unknown) (unknown) (unknown) (no date) (unknown) (unknown) diazepam [From Valium] Allergy Verified 07/19/22 09:43 (units unknown) (unknown) (unknown) (no date) (unknown) (unknown) face as well as entire arm and hands and fingers. 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 (units unknown) (unknown) (unknown) (no date) (unknown) (unknown) funduscopy. No papilledema. (units unknown) (unknown) (unknown) (no date) (unknown) (unknown) has numbness tingling and weakness of the left face and left arm. Primary care (units unknown) (unknown) (unknown) (no date) (unknown) (unknown) is with the [facility]. No recent illness. No cough cold congestion fever (units unknown) (unknown) (unknown) (no date) (unknown) (unknown) migraine (units unknown) (unknown) (unknown) (no date) (unknown) (unknown) morphine Allergy Verified 07/19/22 09:43 (units unknown) (unknown) (unknown) (no date) (unknown) (unknown) of the head [place]. This episode is different because she (units unknown) (unknown) (unknown) (no date) (unknown) (unknown) or depression (units unknown) (unknown) (unknown) (no date) (unknown) (unknown) oxycodone Allergy Verified 07/19/22 09:43 (units unknown) (unknown) (unknown) (no date) (unknown) (unknown) phone number to establish family doctor. Call [phone] return if worse if (units unknown) (unknown) (unknown) (no date) (unknown) (unknown) puffing of the cheeks as well as attempting to smile. Also with grimacing with (units unknown) (unknown) (unknown) (no date) (unknown) (unknown) rales, or rhonchi. (units unknown) (unknown) (unknown) (no date) (unknown) (unknown) reassuring. I am glad to hear that you are doing much better. (units unknown) (unknown) (unknown) (no date) (unknown) (unknown) since her COVID immunization/vaccine 1 or [address] years ago. Has had [address] scan imaging (units unknown) (unknown) (unknown) (no date) (unknown) (unknown) that started 10:00 a.m. yesterday. Patient has at least 3 headaches a week (units unknown) (unknown) (unknown) (no date) (unknown) (unknown) the eyebrows. There is difference in light touch on the upper and lower left (units unknown) (unknown) (unknown) (no date) (unknown) (unknown) the face and left arm (units unknown) (unknown) (unknown) (no date) (unknown) (unknown) week for referral to Neurology services. Call provided primary care referral (units unknown) (unknown) (unknown) (no date) (unknown) (unknown) yesterday. (units unknown) (unknown) Result panel 142 (unknown) (no date) (unknown) (unknown) (no value) (units unknown) (unknown) (unknown) (no date) (unknown) (unknown) 07/19/22 07/19/22 07/19/22 Range/Units (units unknown) (unknown) (unknown) (no date) (unknown) (unknown) 07/19/22 10:05 (units unknown) (unknown) (unknown) (no date) (unknown) (unknown) 07/19/22 11:03 (units unknown) (unknown) (unknown) (no date) (unknown) (unknown) 07/19/22 11:13 (units unknown) (unknown) (unknown) (no date) (unknown) (unknown) 07/19/22 Range/Units (units unknown) (unknown) (unknown) (no date) (unknown) (unknown) 07/19/22 (units unknown) (unknown) (unknown) (no date) (unknown) (unknown) 09:38 07/19/22 (units unknown) (unknown) (unknown) (no date) (unknown) (unknown) 10:05 10:05 10:05 (units unknown) (unknown) (unknown) (no date) (unknown) (unknown) 10:05 (units unknown) (unknown) (unknown) (no date) (unknown) (unknown) 10:08 07/19/22 (units unknown) (unknown) (unknown) (no date) (unknown) (unknown) 10:30 (units unknown) (unknown) (unknown) (no date) (unknown) (unknown) 10:57 07/19/22 (units unknown) (unknown) (unknown) (no date) (unknown) (unknown) 11:00 07/19/22 (units unknown) (unknown) (unknown) (no date) (unknown) (unknown) 11:00 (units unknown) (unknown) (unknown) (no date) (unknown) (unknown) 11:30 07/19/22 (units unknown) (unknown) (unknown) (no date) (unknown) (unknown) 11:31 07/19/22 (units unknown) (unknown) (unknown) (no date) (unknown) (unknown) 11:31 (units unknown) (unknown) (unknown) (no date) (unknown) (unknown) 12:00 07/19/22 (units unknown) (unknown) (unknown) (no date) (unknown) (unknown) 12:01 07/19/22 (units unknown) (unknown) (unknown) (no date) (unknown) (unknown) 12:01 (units unknown) (unknown) (unknown) (no date) (unknown) (unknown) 13:32 (units unknown) (unknown) (unknown) (no date) (unknown) (unknown) ALT (<35) IU/L (units unknown) (unknown) (unknown) (no date) (unknown) (unknown) ALT 24 (<35) IU/L (units unknown) (unknown) (unknown) (no date) (unknown) (unknown) APTT (26-36) SECONDS (units unknown) (unknown) (unknown) (no date) (unknown) (unknown) APTT 33 (26-36) SECONDS (units unknown) (unknown) (unknown) (no date) (unknown) (unknown) AST (14-36) IU/L (units unknown) (unknown) (unknown) (no date) (unknown) (unknown) AST 22 (14-36) IU/L (units unknown) (unknown) (unknown) (no date) (unknown) (unknown) Activity Restrictions/Additio nal Instructions: (units unknown) (unknown) (unknown) (no date) (unknown) (unknown) Admin: 07/19/22 10:56 Dose: 1,000 mls/hr (units unknown) (unknown) (unknown) (no date) (unknown) (unknown) After history and exam CT angiogram head and neck ordered normal saline, (units unknown) (unknown) (unknown) (no date) (unknown) (unknown) Age/Sex: 37 / F (units unknown) (unknown) (unknown) (no date) (unknown) (unknown) Albumin (3.5-5.0) g/dL (units unknown) (unknown) (unknown) (no date) (unknown) (unknown) Albumin 4.2 (3.5-5.0) g/dL (units unknown) (unknown) (unknown) (no date) (unknown) (unknown) Albumin/Globulin Ratio (1.0-2.8) (units unknown) (unknown) (unknown) (no date) (unknown) (unknown) Albumin/Globulin Ratio 1.4 (1.0-2.8) (units unknown) (unknown) (unknown) (no date) (unknown) (unknown) Alkaline Phosphatase (38-126) U/L (units unknown) (unknown) (unknown) (no date) (unknown) (unknown) Alkaline Phosphatase 46 (38-126) U/L (units unknown) (unknown) (unknown) (no date) (unknown) (unknown) Allergies (units unknown) (unknown) (unknown) (no date) (unknown) (unknown) Allergy/AdvReac Type Severity Reaction Status Date / Time (units unknown) (unknown) (unknown) (no date) (unknown) (unknown) Ask month/age: Answers both questions correctly. (units unknown) (unknown) (unknown) (no date) (unknown) (unknown) BACK: No flank tenderness. (units unknown) (unknown) (unknown) (no date) (unknown) (unknown) BUN (7-17) mg/dL (units unknown) (unknown) (unknown) (no date) (unknown) (unknown) BUN 15 (7-17) mg/dL (units unknown) (unknown) (unknown) (no date) (unknown) (unknown) BUN/Creatinine Ratio (6-22) (units unknown) (unknown) (unknown) (no date) (unknown) (unknown) BUN/Creatinine Ratio 19.5 (6-22) (units unknown) (unknown) (unknown) (no date) (unknown) (unknown) Baso # (Auto) (0-100) /uL (units unknown) (unknown) (unknown) (no date) (unknown) (unknown) Baso # (Auto) 0 (0-100) /uL (units unknown) (unknown) (unknown) (no date) (unknown) (unknown) Baso % (Auto) (0-2) % (units unknown) (unknown) (unknown) (no date) (unknown) (unknown) Baso % (Auto) 0.3 (0-2) % (units unknown) (unknown) (unknown) (no date) (unknown) (unknown) Bedside Urine Bilirubin - Negative (units unknown) (unknown) (unknown) (no date) (unknown) (unknown) Bedside Urine Glucose Negative (units unknown) (unknown) (unknown) (no date) (unknown) (unknown) Bedside Urine Ketone - Negative (units unknown) (unknown) (unknown) (no date) (unknown) (unknown) Bedside Urine Leukocytes - Negative (units unknown) (unknown) (unknown) (no date) (unknown) (unknown) Bedside Urine Nitrite - Negative (units unknown) (unknown) (unknown) (no date) (unknown) (unknown) Bedside Urine Occult Blood - Negative (units unknown) (unknown) (unknown) (no date) (unknown) (unknown) Bedside Urine Protein - Negative (units unknown) (unknown) (unknown) (no date) (unknown) (unknown) Bedside Urine Urobilinogen - Negative (units unknown) (unknown) (unknown) (no date) (unknown) (unknown) Bedside Urine pH 7.5 (units unknown) (unknown) (unknown) (no date) (unknown) (unknown) Best gaze horizontal: Normal (units unknown) (unknown) (unknown) (no date) (unknown) (unknown) Best language: No aphasia, normal (units unknown) (unknown) (unknown) (no date) (unknown) (unknown) Blood Pressure 119/66 (units unknown) (unknown) (unknown) (no date) (unknown) (unknown) Blood Pressure 121/58 L 124/72 (units unknown) (unknown) (unknown) (no date) (unknown) (unknown) Blood Pressure 149/83 H 07/19/22 09:38 (units unknown) (unknown) (unknown) (no date) (unknown) (unknown) Blood Pressure 149/83 H (units unknown) (unknown) (unknown) (no date) (unknown) (unknown) Blood Pressure 92/61 108/58 L (units unknown) (unknown) (unknown) (no date) (unknown) (unknown) Blood Pressure (units unknown) (unknown) (unknown) (no date) (unknown) (unknown) Botox injections for her migraines. She needs referral for primary care now. (units unknown) (unknown) (unknown) (no date) (unknown) (unknown) CARDIOVASCULAR: Regular rate and rhythm without murmurs (units unknown) (unknown) (unknown) (no date) (unknown) (unknown) CARDIOVASCULAR: negative chest pain, palpitations (units unknown) (unknown) (unknown) (no date) (unknown) (unknown) CC: Headache with left facial and left arm numbness and weakness (units unknown) (unknown) (unknown) (no date) (unknown) (unknown) CK-MB (CK-2) Rel Index TNP (units unknown) (unknown) (unknown) (no date) (unknown) (unknown) CK-MB (CK-2) Rel Index (units unknown) (unknown) (unknown) (no date) (unknown) (unknown) CK-MB (CK-2) TNP (units unknown) (unknown) (unknown) (no date) (unknown) (unknown) CK-MB (CK-2) (units unknown) (unknown) (unknown) (no date) (unknown) (unknown) CT angio head and neck Stat (units unknown) (unknown) (unknown) (no date) (unknown) (unknown) Calcium (8.4-10.2) mg/dL (units unknown) (unknown) (unknown) (no date) (unknown) (unknown) Calcium 9.1 (8.4-10.2) mg/dL (units unknown) (unknown) (unknown) (no date) (unknown) (unknown) Carbon Dioxide (22-32) mmol/L (units unknown) (unknown) (unknown) (no date) (unknown) (unknown) Carbon Dioxide 27 (22-32) mmol/L (units unknown) (unknown) (unknown) (no date) (unknown) (unknown) Chief Complaint: Headache (units unknown) (unknown) (unknown) (no date) (unknown) (unknown) Chloride (98-107) mmol/L (units unknown) (unknown) (unknown) (no date) (unknown) (unknown) Chloride 104 (98-107) mmol/L (units unknown) (unknown) (unknown) (no date) (unknown) (unknown) Clinical Impression: (units unknown) (unknown) (unknown) (no date) (unknown) (unknown) Complete Blood Count AUTO DIFF Stat (units unknown) (unknown) (unknown) (no date) (unknown) (unknown) Complicating co-morbidities: Chronic migraines (units unknown) (unknown) (unknown) (no date) (unknown) (unknown) Comprehensive Metabolic Panel Stat (units unknown) (unknown) (unknown) (no date) (unknown) (unknown) Consultations: None indicated (units unknown) (unknown) (unknown) (no date) (unknown) (unknown) Course (units unknown) (unknown) (unknown) (no date) (unknown) (unknown) Creatinine (0.52-1.04) mg/dL (units unknown) (unknown) (unknown) (no date) (unknown) (unknown) Creatinine 0.77 (0.52-1.04) mg/dL (units unknown) (unknown) (unknown) (no date) (unknown) (unknown) : 1985 Acct:[id number] (units unknown) (unknown) (unknown) (no date) (unknown) (unknown) Data collected from: Patient and (units unknown) (unknown) (unknown) (no date) (unknown) (unknown) Date of Service: 07/19/22 (units unknown) (unknown) (unknown) (no date) (unknown) (unknown) Departure (units unknown) (unknown) (unknown) (no date) (unknown) (unknown) Diagnosis: (units unknown) (unknown) (unknown) (no date) (unknown) (unknown) Differential considered: Includes but not limited to stroke TIA complex (units unknown) (unknown) (unknown) (no date) (unknown) (unknown) Discharge Plan (units unknown) (unknown) (unknown) (no date) (unknown) (unknown) Discontinued Medications (units unknown) (unknown) (unknown) (no date) (unknown) (unknown) Discussion: (units unknown) (unknown) (unknown) (no date) (unknown) (unknown) Documented By: MO (units unknown) (unknown) (unknown) (no date) (unknown) (unknown) Dysarthria: Normal (units unknown) (unknown) (unknown) (no date) (unknown) (unknown) ED Orders (units unknown) (unknown) (unknown) (no date) (unknown) (unknown) EKG-12 Lead Stat (units unknown) (unknown) (unknown) (no date) (unknown) (unknown) ENT: Mucous membranes moist. (units unknown) (unknown) (unknown) (no date) (unknown) (unknown) ER Physician: Isreal Dunne MD (units unknown) (unknown) (unknown) (no date) (unknown) (unknown) EXTREMITIES: No gross deformities. (units unknown) (unknown) (unknown) (no date) (unknown) (unknown) EYES: Pupils equal round PERRLA, EOMI, patient is sensitive to light with (units unknown) (unknown) (unknown) (no date) (unknown) (unknown) Emergency Report (units unknown) (unknown) (unknown) (no date) (unknown) (unknown) Eos # (Auto) (0-450) /uL (units unknown) (unknown) (unknown) (no date) (unknown) (unknown) Eos # (Auto) 100 (0-450) /uL (units unknown) (unknown) (unknown) (no date) (unknown) (unknown) Eos % (Auto) (2-4) % (units unknown) (unknown) (unknown) (no date) (unknown) (unknown) Eos % (Auto) 1.7 L (2-4) % (units unknown) (unknown) (unknown) (no date) (unknown) (unknown) Esterase (units unknown) (unknown) (unknown) (no date) (unknown) (unknown) Estimated GFR > 60 (>60) mL/min (units unknown) (unknown) (unknown) (no date) (unknown) (unknown) Estimated GFR (>60) mL/min (units unknown) (unknown) (unknown) (no date) (unknown) (unknown) Exam Narrative: (units unknown) (unknown) (unknown) (no date) (unknown) (unknown) Exam documented above, pertinent findings include: Left lip droop numbness to (units unknown) (unknown) (unknown) (no date) (unknown) (unknown) Exam (units unknown) (unknown) (unknown) (no date) (unknown) (unknown) Extinction or inattention: No abnormality (units unknown) (unknown) (unknown) (no date) (unknown) (unknown) Facial palsy: Minor paralysis, flattened nasolabial fold, asymmetry on smiling (units unknown) (unknown) (unknown) (no date) (unknown) (unknown) GASTROINTESTINAL: Abdomen soft, non-tender (units unknown) (unknown) (unknown) (no date) (unknown) (unknown) GASTROINTESTINAL: negative nausea, vomiting, abdominal pain (units unknown) (unknown) (unknown) (no date) (unknown) (unknown) GENERAL: in no distress, not toxic not dyspneic (units unknown) (unknown) (unknown) (no date) (unknown) (unknown) GENERAL: negative chills, fatigue, malaise, fever, sweats. (units unknown) (unknown) (unknown) (no date) (unknown) (unknown) : negative dysuria, frequency, hematuria (units unknown) (unknown) (unknown) (no date) (unknown) (unknown) General (units unknown) (unknown) (unknown) (no date) (unknown) (unknown) Globulin (1.7-4.1) g/dL (units unknown) (unknown) (unknown) (no date) (unknown) (unknown) Globulin 2.9 (1.7-4.1) g/dL (units unknown) (unknown) (unknown) (no date) (unknown) (unknown) Glucose (70-100) mg/dL (units unknown) (unknown) (unknown) (no date) (unknown) (unknown) Glucose 121 H (70-100) mg/dL (units unknown) (unknown) (unknown) (no date) (unknown) (unknown) HEAD: Normocephalic. (units unknown) (unknown) (unknown) (no date) (unknown) (unknown) HEENT: negative sinus pain, ear pain, sore throat (units unknown) (unknown) (unknown) (no date) (unknown) (unknown) HPI - Headache (units unknown) (unknown) (unknown) (no date) (unknown) (unknown) HPI Narrative: (units unknown) (unknown) (unknown) (no date) (unknown) (unknown) Hct (36-46) % (units unknown) (unknown) (unknown) (no date) (unknown) (unknown) Hct 39.3 (36-46) % (units unknown) (unknown) (unknown) (no date) (unknown) (unknown) Headache, migraine (units unknown) (unknown) (unknown) (no date) (unknown) (unknown) Hgb (12.0-16.0) g/dL (units unknown) (unknown) (unknown) (no date) (unknown) (unknown) Hgb 13.3 (12.0-16.0) g/dL (units unknown) (unknown) (unknown) (no date) (unknown) (unknown) History of Present Illness (units unknown) (unknown) (unknown) (no date) (unknown) (unknown) INR (0.9-1.3) (units unknown) (unknown) (unknown) (no date) (unknown) (unknown) INR 1.1 (0.9-1.3) (units unknown) (unknown) (unknown) (no date) (unknown) (unknown) Imaging studies independently reviewed: (units unknown) (unknown) (unknown) (no date) (unknown) (unknown) Independently reviewed EKG as above normal sinus rhythm rate [address] elevation (units unknown) (unknown) (unknown) (no date) (unknown) (unknown) Initial Vital Signs (units unknown) (unknown) (unknown) (no date) (unknown) (unknown) Initial Vital Signs: (units unknown) (unknown) (unknown) (no date) (unknown) (unknown) Instructions: DI for Migraine (units unknown) (unknown) (unknown) (no date) (unknown) (unknown) [address] [address] (units unknown) (unknown) (unknown) (no date) (unknown) (unknown) Ketorolac Tromethamine (Ketorolac 30 Mg/Ml Vial) 15 mg IV NOW ONE (units unknown) (unknown) (unknown) (no date) (unknown) (unknown) Lab Data (units unknown) (unknown) (unknown) (no date) (unknown) (unknown) Lab Results (units unknown) (unknown) (unknown) (no date) (unknown) (unknown) Lab Test results independently reviewed as above. Pertinent findings: (units unknown) (unknown) (unknown) (no date) (unknown) (unknown) Labs: (units unknown) (unknown) (unknown) (no date) (unknown) (unknown) Last Admin: 07/19/22 10:54 Dose: 15 mg (units unknown) (unknown) (unknown) (no date) (unknown) (unknown) Last Admin: 07/19/22 10:55 Dose: 5 mg (units unknown) (unknown) (unknown) (no date) (unknown) (unknown) Last Infusion: 07/19/22 12:16 Dose: 0 mls/hr (units unknown) (unknown) (unknown) (no date) (unknown) (unknown) Left arm drift: No drift for full 10 sec (units unknown) (unknown) (unknown) (no date) (unknown) (unknown) Left leg drift: No drift for full 5 sec (units unknown) (unknown) (unknown) (no date) (unknown) (unknown) Level of Conciousness: Alert, keenly responsive (units unknown) (unknown) (unknown) (no date) (unknown) (unknown) Limb ataxia: Absent (units unknown) (unknown) (unknown) (no date) (unknown) (unknown) Lymph # (Auto) (1712-4400) /uL (units unknown) (unknown) (unknown) (no date) (unknown) (unknown) Lymph # (Auto) 2400 (5610-1003) /uL (units unknown) (unknown) (unknown) (no date) (unknown) (unknown) Lymph % (Auto) (25-40) % (units unknown) (unknown) (unknown) (no date) (unknown) (unknown) Lymph % (Auto) 36.1 (25-40) % (units unknown) (unknown) (unknown) (no date) (unknown) (unknown) MCH (26-34) PG (units unknown) (unknown) (unknown) (no date) (unknown) (unknown) MCH 29.7 (26-34) PG (units unknown) (unknown) (unknown) (no date) (unknown) (unknown) MCHC (30-36) % (units unknown) (unknown) (unknown) (no date) (unknown) (unknown) MCHC 34.0 (30-36) % (units unknown) (unknown) (unknown) (no date) (unknown) (unknown) MCV (80-100) fL (units unknown) (unknown) (unknown) (no date) (unknown) (unknown) MCV 87.4 (80-100) fL (units unknown) (unknown) (unknown) (no date) (unknown) (unknown) MDM - Headache (units unknown) (unknown) (unknown) (no date) (unknown) (unknown) MDM Narrative (units unknown) (unknown) (unknown) (no date) (unknown) (unknown) MDM (units unknown) (unknown) (unknown) (no date) (unknown) (unknown) MUSCULOSKELETAL: negative muscle or bony pain (units unknown) (unknown) (unknown) (no date) (unknown) (unknown) Medical decision making narrative: (units unknown) (unknown) (unknown) (no date) (unknown) (unknown) Medical records reviewed: No recent visits for this complaint (units unknown) (unknown) (unknown) (no date) (unknown) (unknown) Mode of arrival: Wheelchair (units unknown) (unknown) (unknown) (no date) (unknown) (unknown) Swain # (Auto) (0-900) /uL (units unknown) (unknown) (unknown) (no date) (unknown) (unknown) Swain # (Auto) 300 (0-900) /uL (units unknown) (unknown) (unknown) (no date) (unknown) (unknown) Swain % (Auto) (3-14) % (units unknown) (unknown) (unknown) (no date) (unknown) (unknown) Swain % (Auto) 4.9 (3-14) % (units unknown) (unknown) (unknown) (no date) (unknown) (unknown) NECK: Trachea midline. (units unknown) (unknown) (unknown) (no date) (unknown) (unknown) NEURO: AOx4. Patient has clear speech. There is slight left lip droop with (units unknown) (unknown) (unknown) (no date) (unknown) (unknown) NEUROLOGIC: Positive headache and weakness, numbness (units unknown) (unknown) (unknown) (no date) (unknown) (unknown) NIH Stroke Scale (units unknown) (unknown) (unknown) (no date) (unknown) (unknown) Narrative (units unknown) (unknown) (unknown) (no date) (unknown) (unknown) Narrative: (units unknown) (unknown) (unknown) (no date) (unknown) (unknown) Neut # (Auto) (1678-4560) /uL (units unknown) (unknown) (unknown) (no date) (unknown) (unknown) Neut # (Auto) 3800 (7158-0689) /uL (units unknown) (unknown) (unknown) (no date) (unknown) (unknown) Neut % (Auto) (50-75) % (units unknown) (unknown) (unknown) (no date) (unknown) (unknown) Neut % (Auto) 57.0 (50-75) % (units unknown) (unknown) (unknown) (no date) (unknown) (unknown) No driving 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 Please do call your family doctor this (units unknown) (unknown) (unknown) (no date) (unknown) (unknown) Open/close eyes, close hand: Performs both tasks correctly (units unknown) (unknown) (unknown) (no date) (unknown) (unknown) Ordered: (units unknown) (unknown) (unknown) (no date) (unknown) (unknown) Orders (units unknown) (unknown) (unknown) (no date) (unknown) (unknown) Oxygen Delivery Method Room Air 07/19/22 09:38 (units unknown) (unknown) (unknown) (no date) (unknown) (unknown) Oxygen Delivery Method Room Air (units unknown) (unknown) (unknown) (no date) (unknown) (unknown) Oxygen Delivery Method (units unknown) (unknown) (unknown) (no date) (unknown) (unknown) PSYCH: Not anxious, is cooperative (units unknown) (unknown) (unknown) (no date) (unknown) (unknown) PT (10.1-12.7) SECONDS (units unknown) (unknown) (unknown) (no date) (unknown) (unknown) PT 12.5 (10.1-12.7) SECONDS (units unknown) (unknown) (unknown) (no date) (unknown) (unknown) PTT Partial Thromboplastin Alessandro Stat (units unknown) (unknown) (unknown) (no date) (unknown) (unknown) Patient Disposition: Home (units unknown) (unknown) (unknown) (no date) (unknown) (unknown) Patient History (units unknown) (unknown) (unknown) (no date) (unknown) (unknown) Patient brought here by for complaints of global generalized headache (units unknown) (unknown) (unknown) (no date) (unknown) (unknown) Patient feels much better and desires discharge home. I did review results with (units unknown) (unknown) (unknown) (no date) (unknown) (unknown) Patient: Manasa Mark (units unknown) (unknown) (unknown) (no date) (unknown) (unknown) Plt Count (150-400) X103/uL (units unknown) (unknown) (unknown) (no date) (unknown) (unknown) Plt Count 185 (150-400) X103/uL (units unknown) (unknown) (unknown) (no date) (unknown) (unknown) Point of Care Testing (units unknown) (unknown) (unknown) (no date) (unknown) (unknown) Potassium (3.4-5.1) mmol/L (units unknown) (unknown) (unknown) (no date) (unknown) (unknown) Potassium 4.3 (3.4-5.1) mmol/L (units unknown) (unknown) (unknown) (no date) (unknown) (unknown) Test Results Negative (units unknown) (unknown) (unknown) (no date) (unknown) (unknown) Test Serum,Qual Stat (units unknown) (unknown) (unknown) (no date) (unknown) (unknown) Prochlorperazine (Prochlorperazine 10 Mg/2 Ml Vial) 5 mg IV NOW ONE (units unknown) (unknown) (unknown) (no date) (unknown) (unknown) Prothrombin Time INR Stat (units unknown) (unknown) (unknown) (no date) (unknown) (unknown) Provider,Ba RAYGOZA [Primary Care Provider] (units unknown) (unknown) (unknown) (no date) (unknown) (unknown) Pulse Oximetry 100 98 98 (units unknown) (unknown) (unknown) (no date) (unknown) (unknown) Pulse Oximetry 85 L (units unknown) (unknown) (unknown) (no date) (unknown) (unknown) Pulse Oximetry 95 07/19/22 09:38 (units unknown) (unknown) (unknown) (no date) (unknown) (unknown) Pulse Oximetry 95 99 99 (units unknown) (unknown) (unknown) (no date) (unknown) (unknown) Pulse Oximetry 98 (units unknown) (unknown) (unknown) (no date) (unknown) (unknown) Pulse Oximetry 99 99 (units unknown) (unknown) (unknown) (no date) (unknown) (unknown) Pulse Rate 74 (units unknown) (unknown) (unknown) (no date) (unknown) (unknown) Pulse Rate 78 78 (units unknown) (unknown) (unknown) (no date) (unknown) (unknown) Pulse Rate 82 76 84 (units unknown) (unknown) (unknown) (no date) (unknown) (unknown) Pulse Rate 85 07/19/22 09:38 (units unknown) (unknown) (unknown) (no date) (unknown) (unknown) Pulse Rate 85 80 79 (units unknown) (unknown) (unknown) (no date) (unknown) (unknown) Pulse Rate 99 H (units unknown) (unknown) (unknown) (no date) (unknown) (unknown) R#: [id number] (units unknown) (unknown) (unknown) (no date) (unknown) (unknown) RBC (4.0-5.2) X106/uL (units unknown) (unknown) (unknown) (no date) (unknown) (unknown) RBC 4.50 (4.0-5.2) X106/uL (units unknown) (unknown) (unknown) (no date) (unknown) (unknown) RDW (11.6-14.8) % (units unknown) (unknown) (unknown) (no date) (unknown) (unknown) RDW 13.6 (11.6-14.8) % (units unknown) (unknown) (unknown) (no date) (unknown) (unknown) RESPIRATORY: Clear to auscultation. Breath sounds equal bilaterally. No wheezes, (units unknown) (unknown) (unknown) (no date) (unknown) (unknown) RESPIRATORY: negative dyspnea, cough (units unknown) (unknown) (unknown) (no date) (unknown) (unknown) ROS Unobtainable: All systems reviewed + are unremarkable except as noted in HPI (units unknown) (unknown) (unknown) (no date) (unknown) (unknown) Re-evaluations: 2:00 p.m.. Patient feeling much better. Headache has (units unknown) (unknown) (unknown) (no date) (unknown) (unknown) Referrals: (units unknown) (unknown) (unknown) (no date) (unknown) (unknown) Related Data (units unknown) (unknown) (unknown) (no date) (unknown) (unknown) Respiratory Rate 15 07/19/22 09:38 (units unknown) (unknown) (unknown) (no date) (unknown) (unknown) Respiratory Rate 15 (units unknown) (unknown) (unknown) (no date) (unknown) (unknown) Respiratory Rate (units unknown) (unknown) (unknown) (no date) (unknown) (unknown) Review of Systems (units unknown) (unknown) (unknown) (no date) (unknown) (unknown) Right arm drift: No drift for full 10 sec (units unknown) (unknown) (unknown) (no date) (unknown) (unknown) Right leg drift: No drift for full 5 sec (units unknown) (unknown) (unknown) (no date) (unknown) (unknown) SKIN: Warm and dry (units unknown) (unknown) (unknown) (no date) (unknown) (unknown) SKIN: negative rash, skin lesions (units unknown) (unknown) (unknown) (no date) (unknown) (unknown) Scores (units unknown) (unknown) (unknown) (no date) (unknown) (unknown) Sensory on face/arms/legs: Mild to moderate sensory loss, can tell touch (units unknown) (unknown) (unknown) (no date) (unknown) (unknown) Serum , Qual (Negative) (units unknown) (unknown) (unknown) (no date) (unknown) (unknown) Serum , Qual Negative (Negative) (units unknown) (unknown) (unknown) (no date) (unknown) (unknown) Signed By: (units unknown) (unknown) (unknown) (no date) (unknown) (unknown) Smoking Status: Former smoker (units unknown) (unknown) (unknown) (no date) (unknown) (unknown) Social History (units unknown) (unknown) (unknown) (no date) (unknown) (unknown) Sodium (137-145) mmol/L (units unknown) (unknown) (unknown) (no date) (unknown) (unknown) Sodium 139 (137-145) mmol/L (units unknown) (unknown) (unknown) (no date) (unknown) (unknown) Sodium Chloride (Normal Saline 0.9%) 1,000 mls @ 1,000 mls/hr IV BOLUS ONE (units unknown) (unknown) (unknown) (no date) (unknown) (unknown) Stand Alone Forms: Patient Portal/API, Work Release Note (units unknown) (unknown) (unknown) (no date) (unknown) (unknown) Stated Complaint: severe migraine T-1 (units unknown) (unknown) (unknown) (no date) (unknown) (unknown) Stop: 07/19/22 10:34 (units unknown) (unknown) (unknown) (no date) (unknown) (unknown) Stop: 07/19/22 11:32 (units unknown) (unknown) (unknown) (no date) (unknown) (unknown) Substance Use Type: does not use (units unknown) (unknown) (unknown) (no date) (unknown) (unknown) Temperature 97.2 F L 07/19/22 09:38 (units unknown) (unknown) (unknown) (no date) (unknown) (unknown) Temperature 97.2 F L (units unknown) (unknown) (unknown) (no date) (unknown) (unknown) Temperature (units unknown) (unknown) (unknown) (no date) (unknown) (unknown) Time Seen by Provider: 07/19/22 10:12 (units unknown) (unknown) (unknown) (no date) (unknown) (unknown) Toradol, Compazine, CBC CMP, EKG (units unknown) (unknown) (unknown) (no date) (unknown) (unknown) Total Bilirubin (0.2-1.3) mg/dL (units unknown) (unknown) (unknown) (no date) (unknown) (unknown) Total Bilirubin 0.6 (0.2-1.3) mg/dL (units unknown) (unknown) (unknown) (no date) (unknown) (unknown) Total Creatine Kinase (30-135) U/L (units unknown) (unknown) (unknown) (no date) (unknown) (unknown) Total Creatine Kinase 48 (30-135) U/L (units unknown) (unknown) (unknown) (no date) (unknown) (unknown) Total NIH Stroke scale score: 2 (units unknown) (unknown) (unknown) (no date) (unknown) (unknown) Total Protein (6.3-8.2) g/dL (units unknown) (unknown) (unknown) (no date) (unknown) (unknown) Total Protein 7.1 (6.3-8.2) g/dL (units unknown) (unknown) (unknown) (no date) (unknown) (unknown) Treatments: Toradol normal saline Compazine (units unknown) (unknown) (unknown) (no date) (unknown) (unknown) Troponin + CK Cardiac Panel Stat (units unknown) (unknown) (unknown) (no date) (unknown) (unknown) Troponin I < 0.012 (0.01-0.034) ng/mL (units unknown) (unknown) (unknown) (no date) (unknown) (unknown) Troponin I (0.01-0.034) ng/mL (units unknown) (unknown) (unknown) (no date) (unknown) (unknown) Urine Dip (units unknown) (unknown) (unknown) (no date) (unknown) (unknown) Urine Specific [place] 1.010 (units unknown) (unknown) (unknown) (no date) (unknown) (unknown) Visual reyes: No visual loss (units unknown) (unknown) (unknown) (no date) (unknown) (unknown) Vital Signs - 8 hr (units unknown) (unknown) (unknown) (no date) (unknown) (unknown) Vital Signs (units unknown) (unknown) (unknown) (no date) (unknown) (unknown) Vital signs: (units unknown) (unknown) (unknown) (no date) (unknown) (unknown) WBC (4.5-11.0) X103/uL (units unknown) (unknown) (unknown) (no date) (unknown) (unknown) WBC 6.6 (4.5-11.0) X103/uL (units unknown) (unknown) (unknown) (no date) (unknown) (unknown) [Embedded Image Not Available] (units unknown) (unknown) (unknown) (no date) (unknown) (unknown) acetaminophen [From Percocet] Allergy Verified 07/19/22 09:43 (units unknown) (unknown) (unknown) (no date) (unknown) (unknown) alcohol intake frequency: a few times a week (units unknown) (unknown) (unknown) (no date) (unknown) (unknown) and below (units unknown) (unknown) (unknown) (no date) (unknown) (unknown) any questions or concerns. Today's laboratory studies and imaging are (units unknown) (unknown) (unknown) (no date) (unknown) (unknown) chills. No prior history of Dumont's palsy or stroke. Last well known 10:00 a.m. (units unknown) (unknown) (unknown) (no date) (unknown) (unknown) compared to the right. There are strong by loss straight leg raises and hip (units unknown) (unknown) (unknown) (no date) (unknown) (unknown) diazepam [From Valium] Allergy Verified 07/19/22 09:43 (units unknown) (unknown) (unknown) (no date) (unknown) (unknown) face as well as entire arm and hands and fingers. 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 (units unknown) (unknown) (unknown) (no date) (unknown) (unknown) funduscopy. No papilledema. (units unknown) (unknown) (unknown) (no date) (unknown) (unknown) has numbness tingling and weakness of the left face and left arm. Primary care (units unknown) (unknown) (unknown) (no date) (unknown) (unknown) is with the [facility]. No recent illness. No cough cold congestion fever (units unknown) (unknown) (unknown) (no date) (unknown) (unknown) migraine (units unknown) (unknown) (unknown) (no date) (unknown) (unknown) morphine Allergy Verified 07/19/22 09:43 (units unknown) (unknown) (unknown) (no date) (unknown) (unknown) of the head but [place]. This episode is different because she (units unknown) (unknown) (unknown) (no date) (unknown) (unknown) or depression (units unknown) (unknown) (unknown) (no date) (unknown) (unknown) oxycodone Allergy Verified 07/19/22 09:43 (units unknown) (unknown) (unknown) (no date) (unknown) (unknown) patient and . He is driving. She states in [place] she was getting (units unknown) (unknown) (unknown) (no date) (unknown) (unknown) phone number to establish family doctor. Call [phone] return if worse if (units unknown) (unknown) (unknown) (no date) (unknown) (unknown) puffing of the cheeks as well as attempting to smile. Also with grimacing with (units unknown) (unknown) (unknown) (no date) (unknown) (unknown) rales, or rhonchi. (units unknown) (unknown) (unknown) (no date) (unknown) (unknown) reassuring. I am glad to hear that you are doing much better. (units unknown) (unknown) (unknown) (no date) (unknown) (unknown) resolved. No left face numbness tingling weakness as well as the left arm. (units unknown) (unknown) (unknown) (no date) (unknown) (unknown) since her COVID immunization/vaccine 1 or 2 years ago. Has had CT scan imaging (units unknown) (unknown) (unknown) (no date) (unknown) (unknown) that started 10:00 a.m. yesterday. Patient has at least 3 headaches a week (units unknown) (unknown) (unknown) (no date) (unknown) (unknown) the eyebrows. There is difference in light touch on the upper and lower left (units unknown) (unknown) (unknown) (no date) (unknown) (unknown) the face and left arm (units unknown) (unknown) (unknown) (no date) (unknown) (unknown) week for referral to Neurology services. Call provided primary care referral (units unknown) (unknown) (unknown) (no date) (unknown) (unknown) yesterday. (units unknown) (unknown) Result panel 143 (unknown) (no date) (unknown) (unknown) (no value) (units unknown) (unknown) (unknown) (no date) (unknown) (unknown) 07/19/22 07/19/22 07/19/22 Range/Units (units unknown) (unknown) (unknown) (no date) (unknown) (unknown) 07/19/22 10:05 (units unknown) (unknown) (unknown) (no date) (unknown) (unknown) 07/19/22 Range/Units (units unknown) (unknown) (unknown) (no date) (unknown) (unknown) 07/19/22 (units unknown) (unknown) (unknown) (no date) (unknown) (unknown) 09:38 07/19/22 (units unknown) (unknown) (unknown) (no date) (unknown) (unknown) 10:05 10:05 10:05 (units unknown) (unknown) (unknown) (no date) (unknown) (unknown) 10:05 (units unknown) (unknown) (unknown) (no date) (unknown) (unknown) 10:08 07/19/22 (units unknown) (unknown) (unknown) (no date) (unknown) (unknown) 10:30 (units unknown) (unknown) (unknown) (no date) (unknown) (unknown) 10:57 07/19/22 (units unknown) (unknown) (unknown) (no date) (unknown) (unknown) 11:00 07/19/22 (units unknown) (unknown) (unknown) (no date) (unknown) (unknown) 11:00 (units unknown) (unknown) (unknown) (no date) (unknown) (unknown) 11:30 07/19/22 (units unknown) (unknown) (unknown) (no date) (unknown) (unknown) 11:31 07/19/22 (units unknown) (unknown) (unknown) (no date) (unknown) (unknown) 11:31 (units unknown) (unknown) (unknown) (no date) (unknown) (unknown) 12:00 07/19/22 (units unknown) (unknown) (unknown) (no date) (unknown) (unknown) 12:01 07/19/22 (units unknown) (unknown) (unknown) (no date) (unknown) (unknown) 12:01 (units unknown) (unknown) (unknown) (no date) (unknown) (unknown) 13:32 (units unknown) (unknown) (unknown) (no date) (unknown) (unknown) ALT (<35) IU/L (units unknown) (unknown) (unknown) (no date) (unknown) (unknown) ALT 24 (<35) IU/L (units unknown) (unknown) (unknown) (no date) (unknown) (unknown) APTT (26-36) SECONDS (units unknown) (unknown) (unknown) (no date) (unknown) (unknown) APTT 33 (26-36) SECONDS (units unknown) (unknown) (unknown) (no date) (unknown) (unknown) AST (14-36) IU/L (units unknown) (unknown) (unknown) (no date) (unknown) (unknown) AST 22 (14-36) IU/L (units unknown) (unknown) (unknown) (no date) (unknown) (unknown) Activity Restrictions/Additio nal Instructions: (units unknown) (unknown) (unknown) (no date) (unknown) (unknown) Admin: 07/19/22 10:56 Dose: 1,000 mls/hr (units unknown) (unknown) (unknown) (no date) (unknown) (unknown) After history and exam CT angiogram head and neck ordered normal saline, (units unknown) (unknown) (unknown) (no date) (unknown) (unknown) Age/Sex: 37 / F (units unknown) (unknown) (unknown) (no date) (unknown) (unknown) Albumin (3.5-5.0) g/dL (units unknown) (unknown) (unknown) (no date) (unknown) (unknown) Albumin 4.2 (3.5-5.0) g/dL (units unknown) (unknown) (unknown) (no date) (unknown) (unknown) Albumin/Globulin Ratio (1.0-2.8) (units unknown) (unknown) (unknown) (no date) (unknown) (unknown) Albumin/Globulin Ratio 1.4 (1.0-2.8) (units unknown) (unknown) (unknown) (no date) (unknown) (unknown) Alkaline Phosphatase (38-126) U/L (units unknown) (unknown) (unknown) (no date) (unknown) (unknown) Alkaline Phosphatase 46 (38-126) U/L (units unknown) (unknown) (unknown) (no date) (unknown) (unknown) Allergies (units unknown) (unknown) (unknown) (no date) (unknown) (unknown) Allergy/AdvReac Type Severity Reaction Status Date / Time (units unknown) (unknown) (unknown) (no date) (unknown) (unknown) Ask month/age: Answers both questions correctly. (units unknown) (unknown) (unknown) (no date) (unknown) (unknown) BACK: No flank tenderness. (units unknown) (unknown) (unknown) (no date) (unknown) (unknown) BUN (7-17) mg/dL (units unknown) (unknown) (unknown) (no date) (unknown) (unknown) BUN 15 (7-17) mg/dL (units unknown) (unknown) (unknown) (no date) (unknown) (unknown) BUN/Creatinine Ratio (6-22) (units unknown) (unknown) (unknown) (no date) (unknown) (unknown) BUN/Creatinine Ratio 19.5 (6-22) (units unknown) (unknown) (unknown) (no date) (unknown) (unknown) Baso # (Auto) (0-100) /uL (units unknown) (unknown) (unknown) (no date) (unknown) (unknown) Baso # (Auto) 0 (0-100) /uL (units unknown) (unknown) (unknown) (no date) (unknown) (unknown) Baso % (Auto) (0-2) % (units unknown) (unknown) (unknown) (no date) (unknown) (unknown) Baso % (Auto) 0.3 (0-2) % (units unknown) (unknown) (unknown) (no date) (unknown) (unknown) Bedside Urine Bilirubin - Negative (units unknown) (unknown) (unknown) (no date) (unknown) (unknown) Bedside Urine Glucose Negative (units unknown) (unknown) (unknown) (no date) (unknown) (unknown) Bedside Urine Ketone - Negative (units unknown) (unknown) (unknown) (no date) (unknown) (unknown) Bedside Urine Leukocytes - Negative (units unknown) (unknown) (unknown) (no date) (unknown) (unknown) Bedside Urine Nitrite - Negative (units unknown) (unknown) (unknown) (no date) (unknown) (unknown) Bedside Urine Occult Blood - Negative (units unknown) (unknown) (unknown) (no date) (unknown) (unknown) Bedside Urine Protein - Negative (units unknown) (unknown) (unknown) (no date) (unknown) (unknown) Bedside Urine Urobilinogen - Negative (units unknown) (unknown) (unknown) (no date) (unknown) (unknown) Bedside Urine pH 7.5 (units unknown) (unknown) (unknown) (no date) (unknown) (unknown) Best gaze horizontal: Normal (units unknown) (unknown) (unknown) (no date) (unknown) (unknown) Best language: No aphasia, normal (units unknown) (unknown) (unknown) (no date) (unknown) (unknown) Blood Pressure 119/66 (units unknown) (unknown) (unknown) (no date) (unknown) (unknown) Blood Pressure 121/58 L 124/72 (units unknown) (unknown) (unknown) (no date) (unknown) (unknown) Blood Pressure 149/83 H 07/19/22 09:38 (units unknown) (unknown) (unknown) (no date) (unknown) (unknown) Blood Pressure 149/83 H (units unknown) (unknown) (unknown) (no date) (unknown) (unknown) Blood Pressure 92/61 108/58 L (units unknown) (unknown) (unknown) (no date) (unknown) (unknown) Blood Pressure (units unknown) (unknown) (unknown) (no date) (unknown) (unknown) Botox injections for her migraines. She needs referral for primary care now. (units unknown) (unknown) (unknown) (no date) (unknown) (unknown) CARDIOVASCULAR: Regular rate and rhythm without murmurs (units unknown) (unknown) (unknown) (no date) (unknown) (unknown) CARDIOVASCULAR: negative chest pain, palpitations (units unknown) (unknown) (unknown) (no date) (unknown) (unknown) CC: Headache with left facial and left arm numbness and weakness (units unknown) (unknown) (unknown) (no date) (unknown) (unknown) CK-MB (CK-2) Rel Index TNP (units unknown) (unknown) (unknown) (no date) (unknown) (unknown) CK-MB (CK-2) Rel Index (units unknown) (unknown) (unknown) (no date) (unknown) (unknown) CK-MB (CK-2) TNP (units unknown) (unknown) (unknown) (no date) (unknown) (unknown) CK-MB (CK-2) (units unknown) (unknown) (unknown) (no date) (unknown) (unknown) Calcium (8.4-10.2) mg/dL (units unknown) (unknown) (unknown) (no date) (unknown) (unknown) Calcium 9.1 (8.4-10.2) mg/dL (units unknown) (unknown) (unknown) (no date) (unknown) (unknown) Carbon Dioxide (22-32) mmol/L (units unknown) (unknown) (unknown) (no date) (unknown) (unknown) Carbon Dioxide 27 (22-32) mmol/L (units unknown) (unknown) (unknown) (no date) (unknown) (unknown) Chief Complaint: Headache (units unknown) (unknown) (unknown) (no date) (unknown) (unknown) Chloride (98-107) mmol/L (units unknown) (unknown) (unknown) (no date) (unknown) (unknown) Chloride 104 (98-107) mmol/L (units unknown) (unknown) (unknown) (no date) (unknown) (unknown) Clinical Impression: (units unknown) (unknown) (unknown) (no date) (unknown) (unknown) Complicating co-morbidities: Chronic migraines (units unknown) (unknown) (unknown) (no date) (unknown) (unknown) Consultations: None indicated (units unknown) (unknown) (unknown) (no date) (unknown) (unknown) Course (units unknown) (unknown) (unknown) (no date) (unknown) (unknown) Creatinine (0.52-1.04) mg/dL (units unknown) (unknown) (unknown) (no date) (unknown) (unknown) Creatinine 0.77 (0.52-1.04) mg/dL (units unknown) (unknown) (unknown) (no date) (unknown) (unknown) : 1985 Acct:[id number] (units unknown) (unknown) (unknown) (no date) (unknown) (unknown) Data collected from: Patient and (units unknown) (unknown) (unknown) (no date) (unknown) (unknown) Date of Service: 07/19/22 (units unknown) (unknown) (unknown) (no date) (unknown) (unknown) Departure (units unknown) (unknown) (unknown) (no date) (unknown) (unknown) Diagnosis: (units unknown) (unknown) (unknown) (no date) (unknown) (unknown) Differential considered: Includes but not limited to stroke TIA complex (units unknown) (unknown) (unknown) (no date) (unknown) (unknown) Discharge Plan (units unknown) (unknown) (unknown) (no date) (unknown) (unknown) Discontinued Medications (units unknown) (unknown) (unknown) (no date) (unknown) (unknown) Discussion: (units unknown) (unknown) (unknown) (no date) (unknown) (unknown) Documented By: MO (units unknown) (unknown) (unknown) (no date) (unknown) (unknown) Dysarthria: Normal (units unknown) (unknown) (unknown) (no date) (unknown) (unknown) ENT: Mucous membranes moist. (units unknown) (unknown) (unknown) (no date) (unknown) (unknown) ER Physician: Isreal Dunne MD (units unknown) (unknown) (unknown) (no date) (unknown) (unknown) EXTREMITIES: No gross deformities. (units unknown) (unknown) (unknown) (no date) (unknown) (unknown) EYES: Pupils equal round PERRLA, EOMI, patient is sensitive to light with (units unknown) (unknown) (unknown) (no date) (unknown) (unknown) Emergency Report (units unknown) (unknown) (unknown) (no date) (unknown) (unknown) Eos # (Auto) (0-450) /uL (units unknown) (unknown) (unknown) (no date) (unknown) (unknown) Eos # (Auto) 100 (0-450) /uL (units unknown) (unknown) (unknown) (no date) (unknown) (unknown) Eos % (Auto) (2-4) % (units unknown) (unknown) (unknown) (no date) (unknown) (unknown) Eos % (Auto) 1.7 L (2-4) % (units unknown) (unknown) (unknown) (no date) (unknown) (unknown) Esterase (units unknown) (unknown) (unknown) (no date) (unknown) (unknown) Estimated GFR > 60 (>60) mL/min (units unknown) (unknown) (unknown) (no date) (unknown) (unknown) Estimated GFR (>60) mL/min (units unknown) (unknown) (unknown) (no date) (unknown) (unknown) Exam Narrative: (units unknown) (unknown) (unknown) (no date) (unknown) (unknown) Exam documented above, pertinent findings include: Left lip droop numbness to (units unknown) (unknown) (unknown) (no date) (unknown) (unknown) Exam (units unknown) (unknown) (unknown) (no date) (unknown) (unknown) Extinction or inattention: No abnormality (units unknown) (unknown) (unknown) (no date) (unknown) (unknown) Facial palsy: Minor paralysis, flattened nasolabial fold, asymmetry on smiling (units unknown) (unknown) (unknown) (no date) (unknown) (unknown) GASTROINTESTINAL: Abdomen soft, non-tender (units unknown) (unknown) (unknown) (no date) (unknown) (unknown) GASTROINTESTINAL: negative nausea, vomiting, abdominal pain (units unknown) (unknown) (unknown) (no date) (unknown) (unknown) GENERAL: in no distress, not toxic not dyspneic (units unknown) (unknown) (unknown) (no date) (unknown) (unknown) GENERAL: negative chills, fatigue, malaise, fever, sweats. (units unknown) (unknown) (unknown) (no date) (unknown) (unknown) : negative dysuria, frequency, hematuria (units unknown) (unknown) (unknown) (no date) (unknown) (unknown) General (units unknown) (unknown) (unknown) (no date) (unknown) (unknown) Globulin (1.7-4.1) g/dL (units unknown) (unknown) (unknown) (no date) (unknown) (unknown) Globulin 2.9 (1.7-4.1) g/dL (units unknown) (unknown) (unknown) (no date) (unknown) (unknown) Glucose (70-100) mg/dL (units unknown) (unknown) (unknown) (no date) (unknown) (unknown) Glucose 121 H (70-100) mg/dL (units unknown) (unknown) (unknown) (no date) (unknown) (unknown) HEAD: Normocephalic. (units unknown) (unknown) (unknown) (no date) (unknown) (unknown) HEENT: negative sinus pain, ear pain, sore throat (units unknown) (unknown) (unknown) (no date) (unknown) (unknown) HPI - Headache (units unknown) (unknown) (unknown) (no date) (unknown) (unknown) HPI Narrative: (units unknown) (unknown) (unknown) (no date) (unknown) (unknown) Hct (36-46) % (units unknown) (unknown) (unknown) (no date) (unknown) (unknown) Hct 39.3 (36-46) % (units unknown) (unknown) (unknown) (no date) (unknown) (unknown) Headache, migraine (units unknown) (unknown) (unknown) (no date) (unknown) (unknown) Hgb (12.0-16.0) g/dL (units unknown) (unknown) (unknown) (no date) (unknown) (unknown) Hgb 13.3 (12.0-16.0) g/dL (units unknown) (unknown) (unknown) (no date) (unknown) (unknown) History of Present Illness (units unknown) (unknown) (unknown) (no date) (unknown) (unknown) INR (0.9-1.3) (units unknown) (unknown) (unknown) (no date) (unknown) (unknown) INR 1.1 (0.9-1.3) (units unknown) (unknown) (unknown) (no date) (unknown) (unknown) Imaging studies independently reviewed: (units unknown) (unknown) (unknown) (no date) (unknown) (unknown) Independently reviewed EKG as above normal sinus rhythm rate [address] elevation (units unknown) (unknown) (unknown) (no date) (unknown) (unknown) Initial Vital Signs (units unknown) (unknown) (unknown) (no date) (unknown) (unknown) Initial Vital Signs: (units unknown) (unknown) (unknown) (no date) (unknown) (unknown) Instructions: DI for Migraine (units unknown) (unknown) (unknown) (no date) (unknown) (unknown) [address] [address] (units unknown) (unknown) (unknown) (no date) (unknown) (unknown) Ketorolac Tromethamine (Ketorolac 30 Mg/Ml Vial) 15 mg IV NOW ONE (units unknown) (unknown) (unknown) (no date) (unknown) (unknown) Lab Data (units unknown) (unknown) (unknown) (no date) (unknown) (unknown) Lab Results (units unknown) (unknown) (unknown) (no date) (unknown) (unknown) Lab Test results independently reviewed as above. Pertinent findings: No (units unknown) (unknown) (unknown) (no date) (unknown) (unknown) Labs: (units unknown) (unknown) (unknown) (no date) (unknown) (unknown) Last Admin: 07/19/22 10:54 Dose: 15 mg (units unknown) (unknown) (unknown) (no date) (unknown) (unknown) Last Admin: 07/19/22 10:55 Dose: 5 mg (units unknown) (unknown) (unknown) (no date) (unknown) (unknown) Last Infusion: 07/19/22 12:16 Dose: 0 mls/hr (units unknown) (unknown) (unknown) (no date) (unknown) (unknown) Left arm drift: No drift for full 10 sec (units unknown) (unknown) (unknown) (no date) (unknown) (unknown) Left leg drift: No drift for full 5 sec (units unknown) (unknown) (unknown) (no date) (unknown) (unknown) Level of Conciousness: Alert, keenly responsive (units unknown) (unknown) (unknown) (no date) (unknown) (unknown) Limb ataxia: Absent (units unknown) (unknown) (unknown) (no date) (unknown) (unknown) Lymph # (Auto) (0381-8643) /uL (units unknown) (unknown) (unknown) (no date) (unknown) (unknown) Lymph # (Auto) 2400 (0171-0018) /uL (units unknown) (unknown) (unknown) (no date) (unknown) (unknown) Lymph % (Auto) (25-40) % (units unknown) (unknown) (unknown) (no date) (unknown) (unknown) Lymph % (Auto) 36.1 (25-40) % (units unknown) (unknown) (unknown) (no date) (unknown) (unknown) MCH (26-34) PG (units unknown) (unknown) (unknown) (no date) (unknown) (unknown) MCH 29.7 (26-34) PG (units unknown) (unknown) (unknown) (no date) (unknown) (unknown) MCHC (30-36) % (units unknown) (unknown) (unknown) (no date) (unknown) (unknown) MCHC 34.0 (30-36) % (units unknown) (unknown) (unknown) (no date) (unknown) (unknown) MCV (80-100) fL (units unknown) (unknown) (unknown) (no date) (unknown) (unknown) MCV 87.4 (80-100) fL (units unknown) (unknown) (unknown) (no date) (unknown) (unknown) MDM - Headache (units unknown) (unknown) (unknown) (no date) (unknown) (unknown) MDM Narrative (units unknown) (unknown) (unknown) (no date) (unknown) (unknown) MDM (units unknown) (unknown) (unknown) (no date) (unknown) (unknown) MUSCULOSKELETAL: negative muscle or bony pain (units unknown) (unknown) (unknown) (no date) (unknown) (unknown) Medical decision making narrative: (units unknown) (unknown) (unknown) (no date) (unknown) (unknown) Medical records reviewed: No recent visits for this complaint (units unknown) (unknown) (unknown) (no date) (unknown) (unknown) Mode of arrival: Wheelchair (units unknown) (unknown) (unknown) (no date) (unknown) (unknown) Swain # (Auto) (0-900) /uL (units unknown) (unknown) (unknown) (no date) (unknown) (unknown) Swain # (Auto) 300 (0-900) /uL (units unknown) (unknown) (unknown) (no date) (unknown) (unknown) Swain % (Auto) (3-14) % (units unknown) (unknown) (unknown) (no date) (unknown) (unknown) Swain % (Auto) 4.9 (3-14) % (units unknown) (unknown) (unknown) (no date) (unknown) (unknown) NECK: Trachea midline. (units unknown) (unknown) (unknown) (no date) (unknown) (unknown) NEURO: AOx4. Patient has clear speech. There is slight left lip droop with (units unknown) (unknown) (unknown) (no date) (unknown) (unknown) NEUROLOGIC: Positive headache and weakness, numbness (units unknown) (unknown) (unknown) (no date) (unknown) (unknown) NIH Stroke Scale (units unknown) (unknown) (unknown) (no date) (unknown) (unknown) Narrative (units unknown) (unknown) (unknown) (no date) (unknown) (unknown) Narrative: (units unknown) (unknown) (unknown) (no date) (unknown) (unknown) Neut # (Auto) (1750-8226) /uL (units unknown) (unknown) (unknown) (no date) (unknown) (unknown) Neut # (Auto) 3800 (9789-9030) /uL (units unknown) (unknown) (unknown) (no date) (unknown) (unknown) Neut % (Auto) (50-75) % (units unknown) (unknown) (unknown) (no date) (unknown) (unknown) Neut % (Auto) 57.0 (50-75) % (units unknown) (unknown) (unknown) (no date) (unknown) (unknown) No driving 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 Please do call your family doctor this (units unknown) (unknown) (unknown) (no date) (unknown) (unknown) Open/close eyes, close hand: Performs both tasks correctly (units unknown) (unknown) (unknown) (no date) (unknown) (unknown) Ordered: (units unknown) (unknown) (unknown) (no date) (unknown) (unknown) Orders (units unknown) (unknown) (unknown) (no date) (unknown) (unknown) Oxygen Delivery Method Room Air 07/19/22 09:38 (units unknown) (unknown) (unknown) (no date) (unknown) (unknown) Oxygen Delivery Method Room Air (units unknown) (unknown) (unknown) (no date) (unknown) (unknown) Oxygen Delivery Method (units unknown) (unknown) (unknown) (no date) (unknown) (unknown) PSYCH: Not anxious, is cooperative (units unknown) (unknown) (unknown) (no date) (unknown) (unknown) PT (10.1-12.7) SECONDS (units unknown) (unknown) (unknown) (no date) (unknown) (unknown) PT 12.5 (10.1-12.7) SECONDS (units unknown) (unknown) (unknown) (no date) (unknown) (unknown) Patient Disposition: Home (units unknown) (unknown) (unknown) (no date) (unknown) (unknown) Patient History (units unknown) (unknown) (unknown) (no date) (unknown) (unknown) Patient brought here by for complaints of global generalized headache (units unknown) (unknown) (unknown) (no date) (unknown) (unknown) Patient feels much better and desires discharge home. I did review results with (units unknown) (unknown) (unknown) (no date) (unknown) (unknown) Patient: Manasa Mark (units unknown) (unknown) (unknown) (no date) (unknown) (unknown) Plt Count (150-400) X103/uL (units unknown) (unknown) (unknown) (no date) (unknown) (unknown) Plt Count 185 (150-400) X103/uL (units unknown) (unknown) (unknown) (no date) (unknown) (unknown) Point of Care Testing (units unknown) (unknown) (unknown) (no date) (unknown) (unknown) Potassium (3.4-5.1) mmol/L (units unknown) (unknown) (unknown) (no date) (unknown) (unknown) Potassium 4.3 (3.4-5.1) mmol/L (units unknown) (unknown) (unknown) (no date) (unknown) (unknown) Test Results Negative (units unknown) (unknown) (unknown) (no date) (unknown) (unknown) Prochlorperazine (Prochlorperazine 10 Mg/2 Ml Vial) 5 mg IV NOW ONE (units unknown) (unknown) (unknown) (no date) (unknown) (unknown) Provider,Ba RAYGOZA [Primary Care Provider] (units unknown) (unknown) (unknown) (no date) (unknown) (unknown) Pulse Oximetry 100 98 98 (units unknown) (unknown) (unknown) (no date) (unknown) (unknown) Pulse Oximetry 85 L (units unknown) (unknown) (unknown) (no date) (unknown) (unknown) Pulse Oximetry 95 07/19/22 09:38 (units unknown) (unknown) (unknown) (no date) (unknown) (unknown) Pulse Oximetry 95 99 99 (units unknown) (unknown) (unknown) (no date) (unknown) (unknown) Pulse Oximetry 98 (units unknown) (unknown) (unknown) (no date) (unknown) (unknown) Pulse Oximetry 99 99 (units unknown) (unknown) (unknown) (no date) (unknown) (unknown) Pulse Rate 74 (units unknown) (unknown) (unknown) (no date) (unknown) (unknown) Pulse Rate 78 78 (units unknown) (unknown) (unknown) (no date) (unknown) (unknown) Pulse Rate 82 76 84 (units unknown) (unknown) (unknown) (no date) (unknown) (unknown) Pulse Rate 85 07/19/22 09:38 (units unknown) (unknown) (unknown) (no date) (unknown) (unknown) Pulse Rate 85 80 79 (units unknown) (unknown) (unknown) (no date) (unknown) (unknown) Pulse Rate 99 H (units unknown) (unknown) (unknown) (no date) (unknown) (unknown) R#: [id number] (units unknown) (unknown) (unknown) (no date) (unknown) (unknown) RBC (4.0-5.2) X106/uL (units unknown) (unknown) (unknown) (no date) (unknown) (unknown) RBC 4.50 (4.0-5.2) X106/uL (units unknown) (unknown) (unknown) (no date) (unknown) (unknown) RDW (11.6-14.8) % (units unknown) (unknown) (unknown) (no date) (unknown) (unknown) RDW 13.6 (11.6-14.8) % (units unknown) (unknown) (unknown) (no date) (unknown) (unknown) RESPIRATORY: Clear to auscultation. Breath sounds equal bilaterally. No wheezes, (units unknown) (unknown) (unknown) (no date) (unknown) (unknown) RESPIRATORY: negative dyspnea, cough (units unknown) (unknown) (unknown) (no date) (unknown) (unknown) ROS Unobtainable: All systems reviewed + are unremarkable except as noted in HPI (units unknown) (unknown) (unknown) (no date) (unknown) (unknown) Re-evaluations: 2:00 p.m.. Patient feeling much better. Headache has (units unknown) (unknown) (unknown) (no date) (unknown) (unknown) Referrals: (units unknown) (unknown) (unknown) (no date) (unknown) (unknown) Related Data (units unknown) (unknown) (unknown) (no date) (unknown) (unknown) Respiratory Rate 15 07/19/22 09:38 (units unknown) (unknown) (unknown) (no date) (unknown) (unknown) Respiratory Rate 15 (units unknown) (unknown) (unknown) (no date) (unknown) (unknown) Respiratory Rate (units unknown) (unknown) (unknown) (no date) (unknown) (unknown) Review of Systems (units unknown) (unknown) (unknown) (no date) (unknown) (unknown) Right arm drift: No drift for full 10 sec (units unknown) (unknown) (unknown) (no date) (unknown) (unknown) Right leg drift: No drift for full 5 sec (units unknown) (unknown) (unknown) (no date) (unknown) (unknown) SKIN: Warm and dry (units unknown) (unknown) (unknown) (no date) (unknown) (unknown) SKIN: negative rash, skin lesions (units unknown) (unknown) (unknown) (no date) (unknown) (unknown) Scores (units unknown) (unknown) (unknown) (no date) (unknown) (unknown) Sensory on face/arms/legs: Mild to moderate sensory loss, can tell touch (units unknown) (unknown) (unknown) (no date) (unknown) (unknown) Serum , Qual (Negative) (units unknown) (unknown) (unknown) (no date) (unknown) (unknown) Serum , Qual Negative (Negative) (units unknown) (unknown) (unknown) (no date) (unknown) (unknown) Signed By: (units unknown) (unknown) (unknown) (no date) (unknown) (unknown) Smoking Status: Former smoker (units unknown) (unknown) (unknown) (no date) (unknown) (unknown) Social History (units unknown) (unknown) (unknown) (no date) (unknown) (unknown) Sodium (137-145) mmol/L (units unknown) (unknown) (unknown) (no date) (unknown) (unknown) Sodium 139 (137-145) mmol/L (units unknown) (unknown) (unknown) (no date) (unknown) (unknown) Sodium Chloride (Normal Saline 0.9%) 1,000 mls @ 1,000 mls/hr IV BOLUS ONE (units unknown) (unknown) (unknown) (no date) (unknown) (unknown) Stand Alone Forms: Patient Portal/API, Work Release Note (units unknown) (unknown) (unknown) (no date) (unknown) (unknown) Stated Complaint: severe migraine T-1 (units unknown) (unknown) (unknown) (no date) (unknown) (unknown) Stop: 07/19/22 10:34 (units unknown) (unknown) (unknown) (no date) (unknown) (unknown) Stop: 07/19/22 11:32 (units unknown) (unknown) (unknown) (no date) (unknown) (unknown) Substance Use Type: does not use (units unknown) (unknown) (unknown) (no date) (unknown) (unknown) Temperature 97.2 F L 07/19/22 09:38 (units unknown) (unknown) (unknown) (no date) (unknown) (unknown) Temperature 97.2 F L (units unknown) (unknown) (unknown) (no date) (unknown) (unknown) Temperature (units unknown) (unknown) (unknown) (no date) (unknown) (unknown) Time Seen by Provider: 07/19/22 10:12 (units unknown) (unknown) (unknown) (no date) (unknown) (unknown) Toradol, Compazine, CBC CMP, EKG (units unknown) (unknown) (unknown) (no date) (unknown) (unknown) Total Bilirubin (0.2-1.3) mg/dL (units unknown) (unknown) (unknown) (no date) (unknown) (unknown) Total Bilirubin 0.6 (0.2-1.3) mg/dL (units unknown) (unknown) (unknown) (no date) (unknown) (unknown) Total Creatine Kinase (30-135) U/L (units unknown) (unknown) (unknown) (no date) (unknown) (unknown) Total Creatine Kinase 48 (30-135) U/L (units unknown) (unknown) (unknown) (no date) (unknown) (unknown) Total NIH Stroke scale score: 2 (units unknown) (unknown) (unknown) (no date) (unknown) (unknown) Total Protein (6.3-8.2) g/dL (units unknown) (unknown) (unknown) (no date) (unknown) (unknown) Total Protein 7.1 (6.3-8.2) g/dL (units unknown) (unknown) (unknown) (no date) (unknown) (unknown) Treatments: Toradol normal saline Compazine (units unknown) (unknown) (unknown) (no date) (unknown) (unknown) Troponin I < 0.012 (0.01-0.034) ng/mL (units unknown) (unknown) (unknown) (no date) (unknown) (unknown) Troponin I (0.01-0.034) ng/mL (units unknown) (unknown) (unknown) (no date) (unknown) (unknown) Urine Dip (units unknown) (unknown) (unknown) (no date) (unknown) (unknown) Urine Specific [place] 1.010 (units unknown) (unknown) (unknown) (no date) (unknown) (unknown) Visual reyes: No visual loss (units unknown) (unknown) (unknown) (no date) (unknown) (unknown) Vital Signs - 8 hr (units unknown) (unknown) (unknown) (no date) (unknown) (unknown) Vital Signs (units unknown) (unknown) (unknown) (no date) (unknown) (unknown) Vital signs: (units unknown) (unknown) (unknown) (no date) (unknown) (unknown) WBC (4.5-11.0) X103/uL (units unknown) (unknown) (unknown) (no date) (unknown) (unknown) WBC 6.6 (4.5-11.0) X103/uL (units unknown) (unknown) (unknown) (no date) (unknown) (unknown) [Embedded Image Not Available] (units unknown) (unknown) (unknown) (no date) (unknown) (unknown) acetaminophen [From Percocet] Allergy Verified 07/19/22 09:43 (units unknown) (unknown) (unknown) (no date) (unknown) (unknown) alcohol intake frequency: a few times a week (units unknown) (unknown) (unknown) (no date) (unknown) (unknown) and below (units unknown) (unknown) (unknown) (no date) (unknown) (unknown) any questions or concerns. Today's laboratory studies and imaging are (units unknown) (unknown) (unknown) (no date) (unknown) (unknown) chills. No prior history of Dumont's palsy or stroke. Last well known 10:00 a.m. (units unknown) (unknown) (unknown) (no date) (unknown) (unknown) compared to the right. There are strong by loss straight leg raises and hip (units unknown) (unknown) (unknown) (no date) (unknown) (unknown) diazepam [From Valium] Allergy Verified 07/19/22 09:43 (units unknown) (unknown) (unknown) (no date) (unknown) (unknown) face as well as entire arm and hands and fingers. 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 (units unknown) (unknown) (unknown) (no date) (unknown) (unknown) funduscopy. No papilledema. (units unknown) (unknown) (unknown) (no date) (unknown) (unknown) has numbness tingling and weakness of the left face and left arm. Primary care (units unknown) (unknown) (unknown) (no date) (unknown) (unknown) is with the [facility]. No recent illness. No cough cold congestion fever (units unknown) (unknown) (unknown) (no date) (unknown) (unknown) leukocytosis, troponin less than 0.012 (units unknown) (unknown) (unknown) (no date) (unknown) (unknown) migraine (units unknown) (unknown) (unknown) (no date) (unknown) (unknown) morphine Allergy Verified 07/19/22 09:43 (units unknown) (unknown) (unknown) (no date) (unknown) (unknown) of the head [place]. This episode is different because she (units unknown) (unknown) (unknown) (no date) (unknown) (unknown) or depression (units unknown) (unknown) (unknown) (no date) (unknown) (unknown) oxycodone Allergy Verified 07/19/22 09:43 (units unknown) (unknown) (unknown) (no date) (unknown) (unknown) patient and . He is driving. She states in [place] she was getting (units unknown) (unknown) (unknown) (no date) (unknown) (unknown) phone number to establish family doctor. Call [phone] return if worse if (units unknown) (unknown) (unknown) (no date) (unknown) (unknown) puffing of the cheeks as well as attempting to smile. Also with grimacing with (units unknown) (unknown) (unknown) (no date) (unknown) (unknown) rales, or rhonchi. (units unknown) (unknown) (unknown) (no date) (unknown) (unknown) reassuring. I am glad to hear that you are doing much better. (units unknown) (unknown) (unknown) (no date) (unknown) (unknown) resolved. No left face numbness tingling weakness as well as the left arm. (units unknown) (unknown) (unknown) (no date) (unknown) (unknown) since her COVID immunization/vaccine 1 or [address] ago. Has had [address] scan imaging (units unknown) (unknown) (unknown) (no date) (unknown) (unknown) that started 10:00 a.m. yesterday. Patient has at least 3 headaches a week (units unknown) (unknown) (unknown) (no date) (unknown) (unknown) the eyebrows. There is difference in light touch on the upper and lower left (units unknown) (unknown) (unknown) (no date) (unknown) (unknown) the face and left arm (units unknown) (unknown) (unknown) (no date) (unknown) (unknown) week for referral to Neurology services. Call provided primary care referral (units unknown) (unknown) (unknown) (no date) (unknown) (unknown) yesterday. (units unknown) (unknown) Result panel 144 (unknown) (no date) (unknown) (unknown) (no value) (units unknown) (unknown) (unknown) (no date) (unknown) (unknown) <Electronically signed by Isreal Dunne MD> (units unknown) (unknown) (unknown) (no date) (unknown) (unknown) 07/19/22 07/19/22 07/19/22 Range/Units (units unknown) (unknown) (unknown) (no date) (unknown) (unknown) 07/19/22 10:05 (units unknown) (unknown) (unknown) (no date) (unknown) (unknown) 07/19/22 Range/Units (units unknown) (unknown) (unknown) (no date) (unknown) (unknown) 07/19/22 (units unknown) (unknown) (unknown) (no date) (unknown) (unknown) 08/06/22 2236 (units unknown) (unknown) (unknown) (no date) (unknown) (unknown) 09:38 07/19/22 (units unknown) (unknown) (unknown) (no date) (unknown) (unknown) 1. No evidence acute intracranial process. (units unknown) (unknown) (unknown) (no date) (unknown) (unknown) 10:05 10:05 10:05 (units unknown) (unknown) (unknown) (no date) (unknown) (unknown) 10:05 (units unknown) (unknown) (unknown) (no date) (unknown) (unknown) 10:08 07/19/22 (units unknown) (unknown) (unknown) (no date) (unknown) (unknown) 10:30 (units unknown) (unknown) (unknown) (no date) (unknown) (unknown) 10:57 07/19/22 (units unknown) (unknown) (unknown) (no date) (unknown) (unknown) 11:00 07/19/22 (units unknown) (unknown) (unknown) (no date) (unknown) (unknown) 11:00 (units unknown) (unknown) (unknown) (no date) (unknown) (unknown) 11:30 07/19/22 (units unknown) (unknown) (unknown) (no date) (unknown) (unknown) 11:31 07/19/22 (units unknown) (unknown) (unknown) (no date) (unknown) (unknown) 11:31 (units unknown) (unknown) (unknown) (no date) (unknown) (unknown) 12:00 07/19/22 (units unknown) (unknown) (unknown) (no date) (unknown) (unknown) 12:01 07/19/22 (units unknown) (unknown) (unknown) (no date) (unknown) (unknown) 12:01 (units unknown) (unknown) (unknown) (no date) (unknown) (unknown) 13:32 (units unknown) (unknown) (unknown) (no date) (unknown) (unknown) 2. Unremarkable CTA head. No stenosis, aneurysm, occlusion, or focal filling (units unknown) (unknown) (unknown) (no date) (unknown) (unknown) 3. Patent carotids. (units unknown) (unknown) (unknown) (no date) (unknown) (unknown) ALT (<35) IU/L (units unknown) (unknown) (unknown) (no date) (unknown) (unknown) ALT 24 (<35) IU/L (units unknown) (unknown) (unknown) (no date) (unknown) (unknown) APTT (26-36) SECONDS (units unknown) (unknown) (unknown) (no date) (unknown) (unknown) APTT 33 (26-36) SECONDS (units unknown) (unknown) (unknown) (no date) (unknown) (unknown) AST (14-36) IU/L (units unknown) (unknown) (unknown) (no date) (unknown) (unknown) AST 22 (14-36) IU/L (units unknown) (unknown) (unknown) (no date) (unknown) (unknown) Activity Restrictions/Additio nal Instructions: (units unknown) (unknown) (unknown) (no date) (unknown) (unknown) Admin: 07/19/22 10:56 Dose: 1,000 mls/hr (units unknown) (unknown) (unknown) (no date) (unknown) (unknown) After history and exam CT angiogram head and neck ordered normal saline, (units unknown) (unknown) (unknown) (no date) (unknown) (unknown) Age/Sex: 37 / F (units unknown) (unknown) (unknown) (no date) (unknown) (unknown) Albumin (3.5-5.0) g/dL (units unknown) (unknown) (unknown) (no date) (unknown) (unknown) Albumin 4.2 (3.5-5.0) g/dL (units unknown) (unknown) (unknown) (no date) (unknown) (unknown) Albumin/Globulin Ratio (1.0-2.8) (units unknown) (unknown) (unknown) (no date) (unknown) (unknown) Albumin/Globulin Ratio 1.4 (1.0-2.8) (units unknown) (unknown) (unknown) (no date) (unknown) (unknown) Alkaline Phosphatase (38-126) U/L (units unknown) (unknown) (unknown) (no date) (unknown) (unknown) Alkaline Phosphatase 46 (38-126) U/L (units unknown) (unknown) (unknown) (no date) (unknown) (unknown) Allergies (units unknown) (unknown) (unknown) (no date) (unknown) (unknown) Allergy/AdvReac Type Severity Reaction Status Date / Time (units unknown) (unknown) (unknown) (no date) (unknown) (unknown) Anterior circulation: Intracranial internal carotid arteries are normal in size (units unknown) (unknown) (unknown) (no date) (unknown) (unknown) Any quantitative measurements of stenosis were performed using NASCET criteria. (units unknown) (unknown) (unknown) (no date) (unknown) (unknown) Approved by: Krishan Alonzo M.D. on 07/19/2022 at 12:55 (units unknown) (unknown) (unknown) (no date) (unknown) (unknown) Ask month/age: Answers both questions correctly. (units unknown) (unknown) (unknown) (no date) (unknown) (unknown) BACK: No flank tenderness. (units unknown) (unknown) (unknown) (no date) (unknown) (unknown) BRAIN: (units unknown) (unknown) (unknown) (no date) (unknown) (unknown) BUN (7-17) mg/dL (units unknown) (unknown) (unknown) (no date) (unknown) (unknown) BUN 15 (7-17) mg/dL (units unknown) (unknown) (unknown) (no date) (unknown) (unknown) BUN/Creatinine Ratio (6-22) (units unknown) (unknown) (unknown) (no date) (unknown) (unknown) BUN/Creatinine Ratio 19.5 (6-22) (units unknown) (unknown) (unknown) (no date) (unknown) (unknown) Baso # (Auto) (0-100) /uL (units unknown) (unknown) (unknown) (no date) (unknown) (unknown) Baso # (Auto) 0 (0-100) /uL (units unknown) (unknown) (unknown) (no date) (unknown) (unknown) Baso % (Auto) (0-2) % (units unknown) (unknown) (unknown) (no date) (unknown) (unknown) Baso % (Auto) 0.3 (0-2) % (units unknown) (unknown) (unknown) (no date) (unknown) (unknown) Bedside Urine Bilirubin - Negative (units unknown) (unknown) (unknown) (no date) (unknown) (unknown) Bedside Urine Glucose Negative (units unknown) (unknown) (unknown) (no date) (unknown) (unknown) Bedside Urine Ketone - Negative (units unknown) (unknown) (unknown) (no date) (unknown) (unknown) Bedside Urine Leukocytes - Negative (units unknown) (unknown) (unknown) (no date) (unknown) (unknown) Bedside Urine Nitrite - Negative (units unknown) (unknown) (unknown) (no date) (unknown) (unknown) Bedside Urine Occult Blood - Negative (units unknown) (unknown) (unknown) (no date) (unknown) (unknown) Bedside Urine Protein - Negative (units unknown) (unknown) (unknown) (no date) (unknown) (unknown) Bedside Urine Urobilinogen - Negative (units unknown) (unknown) (unknown) (no date) (unknown) (unknown) Bedside Urine pH 7.5 (units unknown) (unknown) (unknown) (no date) (unknown) (unknown) Best gaze horizontal: Normal (units unknown) (unknown) (unknown) (no date) (unknown) (unknown) Best language: No aphasia, normal (units unknown) (unknown) (unknown) (no date) (unknown) (unknown) Blood Pressure 119/66 (units unknown) (unknown) (unknown) (no date) (unknown) (unknown) Blood Pressure 121/58 L 124/72 (units unknown) (unknown) (unknown) (no date) (unknown) (unknown) Blood Pressure 149/83 H 07/19/22 09:38 (units unknown) (unknown) (unknown) (no date) (unknown) (unknown) Blood Pressure 149/83 H (units unknown) (unknown) (unknown) (no date) (unknown) (unknown) Blood Pressure 92/61 108/58 L (units unknown) (unknown) (unknown) (no date) (unknown) (unknown) Blood Pressure (units unknown) (unknown) (unknown) (no date) (unknown) (unknown) Bones: No suspicious bony lesions. Visualized cervical spine appears normally (units unknown) (unknown) (unknown) (no date) (unknown) (unknown) Botox injections for her migraines. She needs referral for primary care now. (units unknown) (unknown) (unknown) (no date) (unknown) (unknown) Brain: No midline shift. No intracranial bleeds or masses. Hughes-white matter (units unknown) (unknown) (unknown) (no date) (unknown) (unknown) CARDIOVASCULAR: Regular rate and rhythm without murmurs (units unknown) (unknown) (unknown) (no date) (unknown) (unknown) CARDIOVASCULAR: negative chest pain, palpitations (units unknown) (unknown) (unknown) (no date) (unknown) (unknown) CC: Headache with left facial and left arm numbness and weakness (units unknown) (unknown) (unknown) (no date) (unknown) (unknown) CK-MB (CK-2) Rel Index TNP (units unknown) (unknown) (unknown) (no date) (unknown) (unknown) CK-MB (CK-2) Rel Index (units unknown) (unknown) (unknown) (no date) (unknown) (unknown) CK-MB (CK-2) TNP (units unknown) (unknown) (unknown) (no date) (unknown) (unknown) CK-MB (CK-2) (units unknown) (unknown) (unknown) (no date) (unknown) (unknown) COMPARISON: None. (units unknown) (unknown) (unknown) (no date) (unknown) (unknown) CSF spaces: Ventricles are normal in size and shape. Basal cisterns are (units unknown) (unknown) (unknown) (no date) (unknown) (unknown) CTA - brain/neck: (units unknown) (unknown) (unknown) (no date) (unknown) (unknown) Calcium (8.4-10.2) mg/dL (units unknown) (unknown) (unknown) (no date) (unknown) (unknown) Calcium 9.1 (8.4-10.2) mg/dL (units unknown) (unknown) (unknown) (no date) (unknown) (unknown) Carbon Dioxide (22-32) mmol/L (units unknown) (unknown) (unknown) (no date) (unknown) (unknown) Carbon Dioxide 27 (22-32) mmol/L (units unknown) (unknown) (unknown) (no date) (unknown) (unknown) Carotid system: The great vessels demonstrate a conventional anatomy as they (units unknown) (unknown) (unknown) (no date) (unknown) (unknown) Chief Complaint: Headache (units unknown) (unknown) (unknown) (no date) (unknown) (unknown) Chloride (98-107) mmol/L (units unknown) (unknown) (unknown) (no date) (unknown) (unknown) Chloride 104 (98-107) mmol/L (units unknown) (unknown) (unknown) (no date) (unknown) (unknown) Clinical Impression: (units unknown) (unknown) (unknown) (no date) (unknown) (unknown) Complicating co-morbidities: Chronic migraines (units unknown) (unknown) (unknown) (no date) (unknown) (unknown) Consultations: None indicated (units unknown) (unknown) (unknown) (no date) (unknown) (unknown) Course (units unknown) (unknown) (unknown) (no date) (unknown) (unknown) Creatinine (0.52-1.04) mg/dL (units unknown) (unknown) (unknown) (no date) (unknown) (unknown) Creatinine 0.77 (0.52-1.04) mg/dL (units unknown) (unknown) (unknown) (no date) (unknown) (unknown) : 1985 Acct:[id number] (units unknown) (unknown) (unknown) (no date) (unknown) (unknown) Data collected from: Patient and (units unknown) (unknown) (unknown) (no date) (unknown) (unknown) Date of Service: 07/19/22 (units unknown) (unknown) (unknown) (no date) (unknown) (unknown) Departure (units unknown) (unknown) (unknown) (no date) (unknown) (unknown) Diagnosis: Migraine headache (units unknown) (unknown) (unknown) (no date) (unknown) (unknown) Dictated by: Krishan Alonzo M.D. on 07/19/2022 at 12:52 (units unknown) (unknown) (unknown) (no date) (unknown) (unknown) Differential considered: Includes but not limited to stroke TIA complex (units unknown) (unknown) (unknown) (no date) (unknown) (unknown) Discharge Plan (units unknown) (unknown) (unknown) (no date) (unknown) (unknown) Discontinued Medications (units unknown) (unknown) (unknown) (no date) (unknown) (unknown) Discussion: Appropriate for discharge home. Exam and laboratory studies (units unknown) (unknown) (unknown) (no date) (unknown) (unknown) Documented By: MO (units unknown) (unknown) (unknown) (no date) (unknown) (unknown) Dysarthria: Normal (units unknown) (unknown) (unknown) (no date) (unknown) (unknown) ENT: Mucous membranes moist. (units unknown) (unknown) (unknown) (no date) (unknown) (unknown) ER Physician: Isreal Dunne MD (units unknown) (unknown) (unknown) (no date) (unknown) (unknown) EXTREMITIES: No gross deformities. (units unknown) (unknown) (unknown) (no date) (unknown) (unknown) EYES: Pupils equal round PERRLA, EOMI, patient is sensitive to light with (units unknown) (unknown) (unknown) (no date) (unknown) (unknown) Emergency Report (units unknown) (unknown) (unknown) (no date) (unknown) (unknown) Eos # (Auto) (0-450) /uL (units unknown) (unknown) (unknown) (no date) (unknown) (unknown) Eos # (Auto) 100 (0-450) /uL (units unknown) (unknown) (unknown) (no date) (unknown) (unknown) Eos % (Auto) (2-4) % (units unknown) (unknown) (unknown) (no date) (unknown) (unknown) Eos % (Auto) 1.7 L (2-4) % (units unknown) (unknown) (unknown) (no date) (unknown) (unknown) Esterase (units unknown) (unknown) (unknown) (no date) (unknown) (unknown) Estimated GFR > 60 (>60) mL/min (units unknown) (unknown) (unknown) (no date) (unknown) (unknown) Estimated GFR (>60) mL/min (units unknown) (unknown) (unknown) (no date) (unknown) (unknown) Exam Narrative: (units unknown) (unknown) (unknown) (no date) (unknown) (unknown) Exam documented above, pertinent findings include: Left lip droop numbness to (units unknown) (unknown) (unknown) (no date) (unknown) (unknown) Exam (units unknown) (unknown) (unknown) (no date) (unknown) (unknown) Extinction or inattention: No abnormality (units unknown) (unknown) (unknown) (no date) (unknown) (unknown) FINDINGS: (units unknown) (unknown) (unknown) (no date) (unknown) (unknown) Facial palsy: Minor paralysis, flattened nasolabial fold, asymmetry on smiling (units unknown) (unknown) (unknown) (no date) (unknown) (unknown) GASTROINTESTINAL: Abdomen soft, non-tender (units unknown) (unknown) (unknown) (no date) (unknown) (unknown) GASTROINTESTINAL: negative nausea, vomiting, abdominal pain (units unknown) (unknown) (unknown) (no date) (unknown) (unknown) GENERAL: in no distress, not toxic not dyspneic (units unknown) (unknown) (unknown) (no date) (unknown) (unknown) GENERAL: negative chills, fatigue, malaise, fever, sweats. (units unknown) (unknown) (unknown) (no date) (unknown) (unknown) : negative dysuria, frequency, hematuria (units unknown) (unknown) (unknown) (no date) (unknown) (unknown) General (units unknown) (unknown) (unknown) (no date) (unknown) (unknown) Globulin (1.7-4.1) g/dL (units unknown) (unknown) (unknown) (no date) (unknown) (unknown) Globulin 2.9 (1.7-4.1) g/dL (units unknown) (unknown) (unknown) (no date) (unknown) (unknown) Glucose (70-100) mg/dL (units unknown) (unknown) (unknown) (no date) (unknown) (unknown) Glucose 121 H (70-100) mg/dL (units unknown) (unknown) (unknown) (no date) (unknown) (unknown) HEAD CT ANGIOGRAPHY: (units unknown) (unknown) (unknown) (no date) (unknown) (unknown) HEAD: Normocephalic. (units unknown) (unknown) (unknown) (no date) (unknown) (unknown) HEENT: negative sinus pain, ear pain, sore throat (units unknown) (unknown) (unknown) (no date) (unknown) (unknown) HPI - Headache (units unknown) (unknown) (unknown) (no date) (unknown) (unknown) HPI Narrative: (units unknown) (unknown) (unknown) (no date) (unknown) (unknown) Hct (36-46) % (units unknown) (unknown) (unknown) (no date) (unknown) (unknown) Hct 39.3 (36-46) % (units unknown) (unknown) (unknown) (no date) (unknown) (unknown) Headache, migraine (units unknown) (unknown) (unknown) (no date) (unknown) (unknown) Hgb (12.0-16.0) g/dL (units unknown) (unknown) (unknown) (no date) (unknown) (unknown) Hgb 13.3 (12.0-16.0) g/dL (units unknown) (unknown) (unknown) (no date) (unknown) (unknown) History of Present Illness (units unknown) (unknown) (unknown) (no date) (unknown) (unknown) IMPRESSION: (units unknown) (unknown) (unknown) (no date) (unknown) (unknown) INDICATIONS: headache/left face numb (units unknown) (unknown) (unknown) (no date) (unknown) (unknown) INR (0.9-1.3) (units unknown) (unknown) (unknown) (no date) (unknown) (unknown) INR 1.1 (0.9-1.3) (units unknown) (unknown) (unknown) (no date) (unknown) (unknown) Image quality: Excellent. (units unknown) (unknown) (unknown) (no date) (unknown) (unknown) Imaging Data (units unknown) (unknown) (unknown) (no date) (unknown) (unknown) Imaging studies independently reviewed: CT angiogram head and neck no acute (units unknown) (unknown) (unknown) (no date) (unknown) (unknown) Independently reviewed EKG as above normal sinus rhythm rate [address] elevation (units unknown) (unknown) (unknown) (no date) (unknown) (unknown) Initial Vital Signs (units unknown) (unknown) (unknown) (no date) (unknown) (unknown) Initial Vital Signs: (units unknown) (unknown) (unknown) (no date) (unknown) (unknown) Instructions: DI for Migraine (units unknown) (unknown) (unknown) (no date) (unknown) (unknown) [address] [address] (units unknown) (unknown) (unknown) (no date) (unknown) (unknown) Ketorolac Tromethamine (Ketorolac 30 Mg/Ml Vial) 15 mg IV NOW ONE (units unknown) (unknown) (unknown) (no date) (unknown) (unknown) Lab Data (units unknown) (unknown) (unknown) (no date) (unknown) (unknown) Lab Results (units unknown) (unknown) (unknown) (no date) (unknown) (unknown) Lab Test results independently reviewed as above. Pertinent findings: No (units unknown) (unknown) (unknown) (no date) (unknown) (unknown) Labs: (units unknown) (unknown) (unknown) (no date) (unknown) (unknown) Last Admin: 07/19/22 10:54 Dose: 15 mg (units unknown) (unknown) (unknown) (no date) (unknown) (unknown) Last Admin: 07/19/22 10:55 Dose: 5 mg (units unknown) (unknown) (unknown) (no date) (unknown) (unknown) Last Infusion: 07/19/22 12:16 Dose: 0 mls/hr (units unknown) (unknown) (unknown) (no date) (unknown) (unknown) Left arm drift: No drift for full 10 sec (units unknown) (unknown) (unknown) (no date) (unknown) (unknown) Left leg drift: No drift for full 5 sec (units unknown) (unknown) (unknown) (no date) (unknown) (unknown) Level of Conciousness: Alert, keenly responsive (units unknown) (unknown) (unknown) (no date) (unknown) (unknown) Limb ataxia: Absent (units unknown) (unknown) (unknown) (no date) (unknown) (unknown) Lymph # (Auto) (0091-2434) /uL (units unknown) (unknown) (unknown) (no date) (unknown) (unknown) Lymph # (Auto) 2400 (2409-0373) /uL (units unknown) (unknown) (unknown) (no date) (unknown) (unknown) Lymph % (Auto) (25-40) % (units unknown) (unknown) (unknown) (no date) (unknown) (unknown) Lymph % (Auto) 36.1 (25-40) % (units unknown) (unknown) (unknown) (no date) (unknown) (unknown) MCH (26-34) PG (units unknown) (unknown) (unknown) (no date) (unknown) (unknown) MCH 29.7 (26-34) PG (units unknown) (unknown) (unknown) (no date) (unknown) (unknown) MCHC (30-36) % (units unknown) (unknown) (unknown) (no date) (unknown) (unknown) MCHC 34.0 (30-36) % (units unknown) (unknown) (unknown) (no date) (unknown) (unknown) MCV (80-100) fL (units unknown) (unknown) (unknown) (no date) (unknown) (unknown) MCV 87.4 (80-100) fL (units unknown) (unknown) (unknown) (no date) (unknown) (unknown) MDM - Headache (units unknown) (unknown) (unknown) (no date) (unknown) (unknown) MDM Narrative (units unknown) (unknown) (unknown) (no date) (unknown) (unknown) MDM (units unknown) (unknown) (unknown) (no date) (unknown) (unknown) MUSCULOSKELETAL: negative muscle or bony pain (units unknown) (unknown) (unknown) (no date) (unknown) (unknown) Medical decision making narrative: (units unknown) (unknown) (unknown) (no date) (unknown) (unknown) Medical records reviewed: No recent visits for this complaint (units unknown) (unknown) (unknown) (no date) (unknown) (unknown) Mode of arrival: Wheelchair (units unknown) (unknown) (unknown) (no date) (unknown) (unknown) Swain # (Auto) (0-900) /uL (units unknown) (unknown) (unknown) (no date) (unknown) (unknown) Swain # (Auto) 300 (0-900) /uL (units unknown) (unknown) (unknown) (no date) (unknown) (unknown) Swain % (Auto) (3-14) % (units unknown) (unknown) (unknown) (no date) (unknown) (unknown) Swain % (Auto) 4.9 (3-14) % (units unknown) (unknown) (unknown) (no date) (unknown) (unknown) NECK CT ANGIOGRAPHY: (units unknown) (unknown) (unknown) (no date) (unknown) (unknown) NECK: Trachea midline. (units unknown) (unknown) (unknown) (no date) (unknown) (unknown) NEURO: AOx4. Patient has clear speech. There is slight left lip droop with (units unknown) (unknown) (unknown) (no date) (unknown) (unknown) NEUROLOGIC: Positive headache and weakness, numbness (units unknown) (unknown) (unknown) (no date) (unknown) (unknown) NIH Stroke Scale (units unknown) (unknown) (unknown) (no date) (unknown) (unknown) Narrative (units unknown) (unknown) (unknown) (no date) (unknown) (unknown) Narrative: (units unknown) (unknown) (unknown) (no date) (unknown) (unknown) Neurological findings likely complex migraine headache. This is not new for (units unknown) (unknown) (unknown) (no date) (unknown) (unknown) Neut # (Auto) (9332-0847) /uL (units unknown) (unknown) (unknown) (no date) (unknown) (unknown) Neut # (Auto) 3800 (7221-1091) /uL (units unknown) (unknown) (unknown) (no date) (unknown) (unknown) Neut % (Auto) (50-75) % (units unknown) (unknown) (unknown) (no date) (unknown) (unknown) Neut % (Auto) 57.0 (50-75) % (units unknown) (unknown) (unknown) (no date) (unknown) (unknown) No driving 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 Please do call your family doctor this (units unknown) (unknown) (unknown) (no date) (unknown) (unknown) Open/close eyes, close hand: Performs both tasks correctly (units unknown) (unknown) (unknown) (no date) (unknown) (unknown) Orbits appear normal. (units unknown) (unknown) (unknown) (no date) (unknown) (unknown) Ordered: (units unknown) (unknown) (unknown) (no date) (unknown) (unknown) Orders (units unknown) (unknown) (unknown) (no date) (unknown) (unknown) Oxygen Delivery Method Room Air 07/19/22 09:38 (units unknown) (unknown) (unknown) (no date) (unknown) (unknown) Oxygen Delivery Method Room Air (units unknown) (unknown) (unknown) (no date) (unknown) (unknown) Oxygen Delivery Method (units unknown) (unknown) (unknown) (no date) (unknown) (unknown) PROCEDURE: CT ANGIO HEAD AND NECK (units unknown) (unknown) (unknown) (no date) (unknown) (unknown) PSYCH: Not anxious, is cooperative (units unknown) (unknown) (unknown) (no date) (unknown) (unknown) PT (10.1-12.7) SECONDS (units unknown) (unknown) (unknown) (no date) (unknown) (unknown) PT 12.5 (10.1-12.7) SECONDS (units unknown) (unknown) (unknown) (no date) (unknown) (unknown) Patient Disposition: Home (units unknown) (unknown) (unknown) (no date) (unknown) (unknown) Patient History (units unknown) (unknown) (unknown) (no date) (unknown) (unknown) Patient brought here by for complaints of global generalized headache (units unknown) (unknown) (unknown) (no date) (unknown) (unknown) Patient feels much better and desires discharge home. I did review results with (units unknown) (unknown) (unknown) (no date) (unknown) (unknown) Patient: Manasa Mark (units unknown) (unknown) (unknown) (no date) (unknown) (unknown) Plt Count (150-400) X103/uL (units unknown) (unknown) (unknown) (no date) (unknown) (unknown) Plt Count 185 (150-400) X103/uL (units unknown) (unknown) (unknown) (no date) (unknown) (unknown) Point of Care Testing (units unknown) (unknown) (unknown) (no date) (unknown) (unknown) Posterior circulation: The origins of the vertebral arteries both appear widely (units unknown) (unknown) (unknown) (no date) (unknown) (unknown) Posterior circulation: Visualized portions of the vertebral arteries (units unknown) (unknown) (unknown) (no date) (unknown) (unknown) Potassium (3.4-5.1) mmol/L (units unknown) (unknown) (unknown) (no date) (unknown) (unknown) Potassium 4.3 (3.4-5.1) mmol/L (units unknown) (unknown) (unknown) (no date) (unknown) (unknown) Pre-contrast 4.5 mm thick sections acquired from the foramen magnum to the (units unknown) (unknown) (unknown) (no date) (unknown) (unknown) Test Results Negative (units unknown) (unknown) (unknown) (no date) (unknown) (unknown) Prochlorperazine (Prochlorperazine 10 Mg/2 Ml Vial) 5 mg IV NOW ONE (units unknown) (unknown) (unknown) (no date) (unknown) (unknown) Provider,Ba RAYGOZA [Primary Care Provider] (units unknown) (unknown) (unknown) (no date) (unknown) (unknown) Pulse Oximetry 100 98 98 (units unknown) (unknown) (unknown) (no date) (unknown) (unknown) Pulse Oximetry 85 L (units unknown) (unknown) (unknown) (no date) (unknown) (unknown) Pulse Oximetry 95 07/19/22 09:38 (units unknown) (unknown) (unknown) (no date) (unknown) (unknown) Pulse Oximetry 95 99 99 (units unknown) (unknown) (unknown) (no date) (unknown) (unknown) Pulse Oximetry 98 (units unknown) (unknown) (unknown) (no date) (unknown) (unknown) Pulse Oximetry 99 99 (units unknown) (unknown) (unknown) (no date) (unknown) (unknown) Pulse Rate 74 (units unknown) (unknown) (unknown) (no date) (unknown) (unknown) Pulse Rate 78 78 (units unknown) (unknown) (unknown) (no date) (unknown) (unknown) Pulse Rate 82 76 84 (units unknown) (unknown) (unknown) (no date) (unknown) (unknown) Pulse Rate 85 07/19/22 09:38 (units unknown) (unknown) (unknown) (no date) (unknown) (unknown) Pulse Rate 85 80 79 (units unknown) (unknown) (unknown) (no date) (unknown) (unknown) Pulse Rate 99 H (units unknown) (unknown) (unknown) (no date) (unknown) (unknown) R#: [id number] (units unknown) (unknown) (unknown) (no date) (unknown) (unknown) RBC (4.0-5.2) X106/uL (units unknown) (unknown) (unknown) (no date) (unknown) (unknown) RBC 4.50 (4.0-5.2) X106/uL (units unknown) (unknown) (unknown) (no date) (unknown) (unknown) RDW (11.6-14.8) % (units unknown) (unknown) (unknown) (no date) (unknown) (unknown) RDW 13.6 (11.6-14.8) % (units unknown) (unknown) (unknown) (no date) (unknown) (unknown) RESPIRATORY: Clear to auscultation. Breath sounds equal bilaterally. No wheezes, (units unknown) (unknown) (unknown) (no date) (unknown) (unknown) RESPIRATORY: negative dyspnea, cough (units unknown) (unknown) (unknown) (no date) (unknown) (unknown) ROS Unobtainable: All systems reviewed + are unremarkable except as noted in HPI (units unknown) (unknown) (unknown) (no date) (unknown) (unknown) Radiologist's Impression: (units unknown) (unknown) (unknown) (no date) (unknown) (unknown) Re-evaluations: 2:00 p.m.. Patient feeling much better. Headache has (units unknown) (unknown) (unknown) (no date) (unknown) (unknown) Referrals: (units unknown) (unknown) (unknown) (no date) (unknown) (unknown) Related Data (units unknown) (unknown) (unknown) (no date) (unknown) (unknown) Respiratory Rate 15 07/19/22 09:38 (units unknown) (unknown) (unknown) (no date) (unknown) (unknown) Respiratory Rate 15 (units unknown) (unknown) (unknown) (no date) (unknown) (unknown) Respiratory Rate (units unknown) (unknown) (unknown) (no date) (unknown) (unknown) Review of Systems (units unknown) (unknown) (unknown) (no date) (unknown) (unknown) Right arm drift: No drift for full 10 sec (units unknown) (unknown) (unknown) (no date) (unknown) (unknown) Right leg drift: No drift for full 5 sec (units unknown) (unknown) (unknown) (no date) (unknown) (unknown) SKIN: Warm and dry (units unknown) (unknown) (unknown) (no date) (unknown) (unknown) SKIN: negative rash, skin lesions (units unknown) (unknown) (unknown) (no date) (unknown) (unknown) Scores (units unknown) (unknown) (unknown) (no date) (unknown) (unknown) Sensory on face/arms/legs: Mild to moderate sensory loss, can tell touch (units unknown) (unknown) (unknown) (no date) (unknown) (unknown) Serum , Qual (Negative) (units unknown) (unknown) (unknown) (no date) (unknown) (unknown) Serum , Qual Negative (Negative) (units unknown) (unknown) (unknown) (no date) (unknown) (unknown) Signed By: (units unknown) (unknown) (unknown) (no date) (unknown) (unknown) Sinuses: Sinuses and mastoids are clear. (units unknown) (unknown) (unknown) (no date) (unknown) (unknown) Skull and face: Calvarium and facial bones appear intact, without suspicious (units unknown) (unknown) (unknown) (no date) (unknown) (unknown) Smoking Status: Former smoker (units unknown) (unknown) (unknown) (no date) (unknown) (unknown) Social History (units unknown) (unknown) (unknown) (no date) (unknown) (unknown) Sodium (137-145) mmol/L (units unknown) (unknown) (unknown) (no date) (unknown) (unknown) Sodium 139 (137-145) mmol/L (units unknown) (unknown) (unknown) (no date) (unknown) (unknown) Sodium Chloride (Normal Saline 0.9%) 1,000 mls @ 1,000 mls/hr IV BOLUS ONE (units unknown) (unknown) (unknown) (no date) (unknown) (unknown) Soft tissues: Visualized neck soft tissues demonstrate no suspicious (units unknown) (unknown) (unknown) (no date) (unknown) (unknown) Stand Alone Forms: Patient Portal/API, Work Release Note (units unknown) (unknown) (unknown) (no date) (unknown) (unknown) Stated Complaint: severe migraine T-1 (units unknown) (unknown) (unknown) (no date) (unknown) (unknown) Stop: 07/19/22 10:34 (units unknown) (unknown) (unknown) (no date) (unknown) (unknown) Stop: 07/19/22 11:32 (units unknown) (unknown) (unknown) (no date) (unknown) (unknown) Substance Use Type: does not use (units unknown) (unknown) (unknown) (no date) (unknown) (unknown) TECHNIQUE: (units unknown) (unknown) (unknown) (no date) (unknown) (unknown) Temperature 97.2 F L 07/19/22 09:38 (units unknown) (unknown) (unknown) (no date) (unknown) (unknown) Temperature 97.2 F L (units unknown) (unknown) (unknown) (no date) (unknown) (unknown) Temperature (units unknown) (unknown) (unknown) (no date) (unknown) (unknown) The flow within the middle cerebral arteries is normal and symmetric. The (units unknown) (unknown) (unknown) (no date) (unknown) (unknown) The more superior extracranial portions of both vertebral arteries also (units unknown) (unknown) (unknown) (no date) (unknown) (unknown) Time Seen by Provider: 07/19/22 10:12 (units unknown) (unknown) (unknown) (no date) (unknown) (unknown) Toradol, Compazine, CBC CMP, EKG (units unknown) (unknown) (unknown) (no date) (unknown) (unknown) Total Bilirubin (0.2-1.3) mg/dL (units unknown) (unknown) (unknown) (no date) (unknown) (unknown) Total Bilirubin 0.6 (0.2-1.3) mg/dL (units unknown) (unknown) (unknown) (no date) (unknown) (unknown) Total Creatine Kinase (30-135) U/L (units unknown) (unknown) (unknown) (no date) (unknown) (unknown) Total Creatine Kinase 48 (30-135) U/L (units unknown) (unknown) (unknown) (no date) (unknown) (unknown) Total NIH Stroke scale score: 2 (units unknown) (unknown) (unknown) (no date) (unknown) (unknown) Total Protein (6.3-8.2) g/dL (units unknown) (unknown) (unknown) (no date) (unknown) (unknown) Total Protein 7.1 (6.3-8.2) g/dL (units unknown) (unknown) (unknown) (no date) (unknown) (unknown) Treatments: Toradol normal saline Compazine (units unknown) (unknown) (unknown) (no date) (unknown) (unknown) Troponin I < 0.012 (0.01-0.034) ng/mL (units unknown) (unknown) (unknown) (no date) (unknown) (unknown) Troponin I (0.01-0.034) ng/mL (units unknown) (unknown) (unknown) (no date) (unknown) (unknown) Urine Dip (units unknown) (unknown) (unknown) (no date) (unknown) (unknown) Urine Specific [place] 1.010 (units unknown) (unknown) (unknown) (no date) (unknown) (unknown) Visual reyes: No visual loss (units unknown) (unknown) (unknown) (no date) (unknown) (unknown) Vital Signs - 8 hr (units unknown) (unknown) (unknown) (no date) (unknown) (unknown) Vital Signs (units unknown) (unknown) (unknown) (no date) (unknown) (unknown) Vital signs: (units unknown) (unknown) (unknown) (no date) (unknown) (unknown) WBC (4.5-11.0) X103/uL (units unknown) (unknown) (unknown) (no date) (unknown) (unknown) WBC 6.6 (4.5-11.0) X103/uL (units unknown) (unknown) (unknown) (no date) (unknown) (unknown) [Embedded Image Not Available] (units unknown) (unknown) (unknown) (no date) (unknown) (unknown) abnormalities. (units unknown) (unknown) (unknown) (no date) (unknown) (unknown) acetaminophen [From Percocet] Allergy Verified 07/19/22 09:43 (units unknown) (unknown) (unknown) (no date) (unknown) (unknown) acquired (units unknown) (unknown) (unknown) (no date) (unknown) (unknown) alcohol intake frequency: a few times a week (units unknown) (unknown) (unknown) (no date) (unknown) (unknown) aligned. (units unknown) (unknown) (unknown) (no date) (unknown) (unknown) and below (units unknown) (unknown) (unknown) (no date) (unknown) (unknown) and neck separately. For radiation dose reduction, the following was used: (units unknown) (unknown) (unknown) (no date) (unknown) (unknown) and (units unknown) (unknown) (unknown) (no date) (unknown) (unknown) and/or volume rendering reformats were acquired of the central intracranial (units unknown) (unknown) (unknown) (no date) (unknown) (unknown) anterior (units unknown) (unknown) (unknown) (no date) (unknown) (unknown) any questions or concerns. Today's laboratory studies and imaging are (units unknown) (unknown) (unknown) (no date) (unknown) (unknown) appears intact. (units unknown) (unknown) (unknown) (no date) (unknown) (unknown) arch through the [place] of [place]. Post-contrast 4.5 mm thick sections then re (units unknown) (unknown) (unknown) (no date) (unknown) (unknown) arise from (units unknown) (unknown) (unknown) (no date) (unknown) (unknown) artery. (units unknown) (unknown) (unknown) (no date) (unknown) (unknown) automated (units unknown) (unknown) (unknown) (no date) (unknown) (unknown) both widely patent. The internal carotid arteries demonstrate normal calibers (units unknown) (unknown) (unknown) (no date) (unknown) (unknown) caliber, and join to form a normal appearing basilar artery. Flow within the (units unknown) (unknown) (unknown) (no date) (unknown) (unknown) carotid arteries demonstrate normal caliber and courses. The bifurcation (units unknown) (unknown) (unknown) (no date) (unknown) (unknown) cerebral arteries is normal and symmetric. No aneurysms are seen. (units unknown) (unknown) (unknown) (no date) (unknown) (unknown) chills. No prior history of Dumont's palsy or stroke. Last well known 10:00 a.m. (units unknown) (unknown) (unknown) (no date) (unknown) (unknown) common (units unknown) (unknown) (unknown) (no date) (unknown) (unknown) communicating artery is seen. No aneurysms are seen. (units unknown) (unknown) (unknown) (no date) (unknown) (unknown) compared to the right. There are strong by loss straight leg raises and hip (units unknown) (unknown) (unknown) (no date) (unknown) (unknown) courses. (units unknown) (unknown) (unknown) (no date) (unknown) (unknown) defect. (units unknown) (unknown) (unknown) (no date) (unknown) (unknown) demonstrate normal (units unknown) (unknown) (unknown) (no date) (unknown) (unknown) demonstrate (units unknown) (unknown) (unknown) (no date) (unknown) (unknown) diazepam [From Valium] Allergy Verified 07/19/22 09:43 (units unknown) (unknown) (unknown) (no date) (unknown) (unknown) discharge home. Primary care referral given. Nontoxic at discharge. Likely (units unknown) (unknown) (unknown) (no date) (unknown) (unknown) exposure control, adjustment of mA and/or kV according to patient size. (units unknown) (unknown) (unknown) (no date) (unknown) (unknown) extra-axial fluid collections. (units unknown) (unknown) (unknown) (no date) (unknown) (unknown) face as well as entire arm and hands and fingers. 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 (units unknown) (unknown) (unknown) (no date) (unknown) (unknown) flow. The flow within the paired anterior cerebral arteries is normal and (units unknown) (unknown) (unknown) (no date) (unknown) (unknown) from the foramen magnum to the vertex. 3-dimensional (units unknown) (unknown) (unknown) (no date) (unknown) (unknown) funduscopy. No papilledema. (units unknown) (unknown) (unknown) (no date) (unknown) (unknown) has numbness tingling and weakness of the left face and left arm. Primary care (units unknown) (unknown) (unknown) (no date) (unknown) (unknown) imaging EKG reassuring. Patient symptoms resolved with conservative treatment. (units unknown) (unknown) (unknown) (no date) (unknown) (unknown) interface (units unknown) (unknown) (unknown) (no date) (unknown) (unknown) is with the [facility]. No recent illness. No cough cold congestion fever (units unknown) (unknown) (unknown) (no date) (unknown) (unknown) lesions. (units unknown) (unknown) (unknown) (no date) (unknown) (unknown) leukocytosis, troponin less than 0.012 (units unknown) (unknown) (unknown) (no date) (unknown) (unknown) [id number]-[id number]-vp ojection (MIP) (units unknown) (unknown) (unknown) (no date) (unknown) (unknown) migraine (units unknown) (unknown) (unknown) (no date) (unknown) (unknown) morphine Allergy Verified 07/19/22 09:43 (units unknown) (unknown) (unknown) (no date) (unknown) (unknown) normal courses and calibers. They join to form a normal appearing basilar (units unknown) (unknown) (unknown) (no date) (unknown) (unknown) not stroke. (units unknown) (unknown) (unknown) (no date) (unknown) (unknown) of the head but [place]. This episode is different because she (units unknown) (unknown) (unknown) (no date) (unknown) (unknown) or depression (units unknown) (unknown) (unknown) (no date) (unknown) (unknown) oxycodone Allergy Verified 07/19/22 09:43 (units unknown) (unknown) (unknown) (no date) (unknown) (unknown) patent. No (units unknown) (unknown) (unknown) (no date) (unknown) (unknown) patent. (units unknown) (unknown) (unknown) (no date) (unknown) (unknown) patient and . He is driving. She states in [place] she was getting (units unknown) (unknown) (unknown) (no date) (unknown) (unknown) patient. Return precautions reviewed patient. Patient and family desire (units unknown) (unknown) (unknown) (no date) (unknown) (unknown) phone number to establish family doctor. Call [phone] return if worse if (units unknown) (unknown) (unknown) (no date) (unknown) (unknown) posterior (units unknown) (unknown) (unknown) (no date) (unknown) (unknown) process (units unknown) (unknown) (unknown) (no date) (unknown) (unknown) puffing of the cheeks as well as attempting to smile. Also with grimacing with (units unknown) (unknown) (unknown) (no date) (unknown) (unknown) rales, or rhonchi. (units unknown) (unknown) (unknown) (no date) (unknown) (unknown) reassuring. I am glad to hear that you are doing much better. (units unknown) (unknown) (unknown) (no date) (unknown) (unknown) regions are (units unknown) (unknown) (unknown) (no date) (unknown) (unknown) resolved. No left face numbness tingling weakness as well as the left arm. (units unknown) (unknown) (unknown) (no date) (unknown) (unknown) since her COVID immunization/vaccine 1 or [address]. Has had CT scan imaging (units unknown) (unknown) (unknown) (no date) (unknown) (unknown) symmetric. (units unknown) (unknown) (unknown) (no date) (unknown) (unknown) that started 10:00 a.m. yesterday. Patient has at least 3 headaches a week (units unknown) (unknown) (unknown) (no date) (unknown) (unknown) the administration of intravenous contrast, 1 mm thick sections acquired from (units unknown) (unknown) (unknown) (no date) (unknown) (unknown) the aortic arch. The origins of the common carotid arteries appear patent. The (units unknown) (unknown) (unknown) (no date) (unknown) (unknown) the aortic (units unknown) (unknown) (unknown) (no date) (unknown) (unknown) the eyebrows. There is difference in light touch on the upper and lower left (units unknown) (unknown) (unknown) (no date) (unknown) (unknown) the face and left arm (units unknown) (unknown) (unknown) (no date) (unknown) (unknown) vasculature (units unknown) (unknown) (unknown) (no date) (unknown) (unknown) vertex. After (units unknown) (unknown) (unknown) (no date) (unknown) (unknown) week for referral to Neurology services. Call provided primary care referral (units unknown) (unknown) (unknown) (no date) (unknown) (unknown) yesterday. (units unknown) (unknown) Social History date description facility 2022-07-19 00:00 Ex-smoker (finding) [facility] Vital Signs date measurement value units 2022-07-19 00:00 BMI 43.9 kg/m2 2022-07-19 00:00 BP_diastolic 58 mmHg 2022-07-19 00:00 BP_systolic 108 mmHg 2022-07-19 00:00 heart_rate 99 /min 2022-07-19 00:00 height_metric 172.72 cm 2022-07-19 00:00 height_standard 68 in 2022-07-19 00:00 o2_saturation 85 % 2022-07-19 00:00 respiration_rate 15 /min 2022-07-19 00:00 temperature_metric 36.22 C 2022-07-19 00:00 temperature_standard 97.2 F 2022-07-19 00:00 weight_metric 131.08 kg 2022-07-19 00:00 weight_standard 288.98 lb
[2022-08-15 20:59] LABS: ALBUMIN 4.2 g/dL (3.2-5.5); ALBUMIN/GLOBULIN RATIO 1.4 (1.0-2.2); BILIRUBIN,TOTAL 0.5 mg/dL (0.2-1.0); CALCIUM 9.4 mg/dL (8.5-10.3); CREATININE 0.7 mg/dL (0.4-1.0); POTASSIUM 3.7 mmol/L (3.5-5.0); TOTAL PROTEIN 7.3 g/dL (6.7-8.2)
[2022-08-15 21:31] LABS: BILIRUBIN,URINE NEGATIVE (NEGATIVE); GLUCOSE, URINE (UA) NEGATIVE (NEGATIVE); KETONES,URINE (UA) NEGATIVE (NEGATIVE); LEUKOCYTE ESTERASE, URINE NEGATIVE (NEGATIVE); NITRITE,URINE NEGATIVE (NEGATIVE); OCCULT BLOOD,URINE TRACE-INTA (NEGATIVE); PROTEIN,URINE NEGATIVE (NEGATIVE); UROBILINOGEN,URINE 0.2 (NORMAL) E.U./dL (NORMAL)
[2022-08-15 21:32] LABS: CLARITY,URINE CLEAR (CLEAR); HCG UR QUAL NEGATIVE
[2022-08-15] MEDS ORDERED: iohexoL-300 100 ML VIAL ONE (21:48)
[2022-08-15] MEDS ORDERED: iohexoL-300 100 ML VIAL IVP ONE (22:21)
--- NOTE | 2022-08-15 23:35 | CT Report ---
PROCEDURE: ABDOMEN/PELVIS W INDICATIONS: diffuse abdominal pain CONTRAST: Omni 300 100ml TECHNIQUE: After the administration of intravenous contrast, 5 mm thick sections acquired from the diaphragms to the symphysis. 5 mm thick coronal and sagittal reformats were acquired. For radiation dose reducti on, the following was used: automated exposure control, adjustment of mA and/or kV according to kristine ent size. COMPARISON: None. FINDINGS: Image quality: Excellent. Lung bases:There is minimal atelectasis. Heart: Heart is normal in size. ABDOMEN: Liver:There is hypoattenuation of the liver consistent with fatty infiltration. Gallbladder: Within normal limits without calcified gallstones. Biliary ducts: No biliary ductal dilatation. Pancreas: Unremarkable. Spleen: Normal in size. Adrenal Glands: No adrenal nodules. Kidneys and Ureters: No hydronephrosis. Stomach and Bowel: Stomach, small bowel loops, and colon are normal in caliber and wall thickness. T he appendix is not discretely identified and is likely surgically absent. No pericecal inflammatory c hanges to suggest appendicitis. There is colonic diverticulosis without acute diverticulitis. Peritoneum: No abnormal intraperitoneal fluid. No free air. Ventral Wall: No hernia. Abdominal Nodes: No retroperitoneal or mesenteric adenopathy by size criteria. Vessels: Aorta and inferior vena cava are normal in size. PELVIS: Pelvic Organs:An IUD appears in appropriate position within the uterus.. Bladder: Unremarkable. Pelvic Nodes: No enlarged lymph nodes. Miscellaneous: No inguinal hernias. Bones: Visualized osseous structures demonstrate no suspicious lesions. IMPRESSION: 1. No acute intracranial abnormality. 2. Colonic diverticulosis without acute diverticulitis. 3. Hepatic steatosis. Reviewed by: Maged Vora MD on 08/15/2022 11:34 PM PDT Approved by: Maged Vora MD on 08/15/2022 11:34 PM PDT Station ID: [id number]
[2022-08-16] MEDS ORDERED: ONDANSETRON ODT 4 MG TABLET TL STA (01:37)
[2022-08-16] MEDS ORDERED: ACETAMINOPHEN/CODEINE 300 MG/30 MG TABLET PO STA (01:38)
[2022-08-16 01:50] VITALS: BP 128/90
== END 2022-08-16 02:10 | disposition home or self-care (01) ==
LOC: ED 20:02
DX: R10.84 Generalized abdominal pain (principal); E11.9 Type 2 diabetes mellitus without complications
CPT/HCPCS: 36415; 74177; 80053; 81003; 81025; 83690; 85025; 96374; 96375; 99284; A9270; Q0162; Q9967; 81001; 87086

== ENCOUNTER 2022-08-30 08:47 | Outpatient (CLI) | payer OTHER ==
--- NOTE | 2022-08-31 10:55 | Mammography Report ---
BILATERAL DIGITAL DIAGNOSTIC MAMMOGRAM 3D/2D: 08/30/2022 CLINICAL: Bilateral axillary lymphadenopathy. Multiple family members with breast cancer. Comparison is made to exam dated: 04/05/2022 mammogram - [facility]. Both breasts are heterogeneously dense, which may obscure small masses (category c / 51-75% glandular tissue). There is a focal asymmetry in the right breast at 11 o'clock posterior depth. No other significant masses, calcifications, or other findings are seen in either breast. IMPRESSION: INCOMPLETE: NEEDS ADDITIONAL IMAGING EVALUATION The focal asymmetry in the right breast is indeterminate. A targeted ultrasound of the right breast i s recommended and will be performed immediately following this exam. There are no mammographic abnormalities seen in either axilla to correspond with the palpable nodular ities in axillae, however, targeted ultrasounds of the bilateral axillae are recommended and will be performed immediately following this exam. Based on Tyrer-Cuzick model (a risk assessment model), the patient's lifetime risk is 35.2% and her 1 0 year risk is 5.9%. If a patient has an elevated risk, a more comprehensive evaluation should be con sidered and/or a referral to a genetic counselor. The [place] [employer], [place] [employer], and NCCN Guidelines advise the consideration of Breast MRI as an adjunct to screening mammog pepe in patients whose "Lifetime risk to develop breast cancer" is 20% or higher. This exam was interpreted at Station ID: [id number]. NOTE: For mammograms, a report in lay terms will be sent to the patient. Approximately 15% of breast malignancies will not be visualized mammographically. In the management of a palpable breast mass, a negative mammogram must not discourage biopsy of a clinically suspicious lesion. Electronically Signed By: Jennie Schuler M.D. lk/:08/30/2022 11:48:08 ACR BI-RADS Category 0: Incomplete 3340F PARENCHYMAL PATTERN: (D) - The breast(s) demonstrate(s) heterogeneously dense fibroglandular parenchy ma. BI-RADS CATEGORY: (0) - 0 Ultrasound [id number] Immediate follow-up LATERALITY: (B)
--- NOTE | 2022-08-31 10:55 | Ultrasound Report ---
LIMITED ULTRASOUND OF LEFT BREAST: 08/30/2022 CLINICAL: Mother with breast cancer. Comparison is made to exams dated: 08/30/2022 mammogram - [facility], 04/05/2022 mamm ogram, 04/05/[address] - [facility], and 12/14/2013 ultrasound - [facility]. Ultrasound of was performed on the area of interest. IMPRESSION: NEGATIVE There is no sonographic evidence of malignancy. There are no mammographic or sonographic abnormalities seen in the left axilla to correspond with the palpable nodularities in the left axilla, however, clinical followup is recommended. A 1 year screening mammogram is recommended. This exam was interpreted at Station ID: [id number]. Electronically Signed By: Jennie Schuler M.D. lk/:08/30/2022 11:49:15 Ultrasound BI-RADS: 1 Negative BI-RADS CATEGORY: (1) - 1 Mammogram [id number] 1 year screening LATERALITY: (B)
--- NOTE | 2022-08-31 10:55 | Ultrasound Report ---
LIMITED ULTRASOUND OF RIGHT BREAST AND AXILLA: 08/30/2022 CLINICAL: Patient returns today to evaluate a focal asymmetry in the right breast. Comparison is made to exams dated: 08/30/2022 ultrasound, 08/30/2022 mammogram - [facility], 04/05/2022 mammogram, 04/05/2022 ultrasound - [facility], and 12/14/2013 ultrasound - [facility]. Color flow ultrasound of the right breast 10 o'clock, and axilla regions was performed on the areas o f interest. Hughes scale images of the real-time examination were reviewed. There is a normal appearing lymph node in the right breast at 10 o'clock anterior depth. This lymph node is hypoechoic with fatty hilum. This correlates with mammography findings. IMPRESSION: BENIGN There is no sonographic evidence of malignancy. The normal lymph node in the right breast is benign. A 1 year screening mammogram is recommended. This exam was interpreted at Station ID: [id number]. Electronically Signed By: Jennie Schuler M.D. lk/:08/30/2022 11:50:51 Ultrasound BI-RADS: 2 Benign BI-RADS CATEGORY: (2) - 2 Mammogram [id number] 1 year screening LATERALITY: (B)
== END 2022-08-30 08:48 | disposition home or self-care (01) ==
LOC: DI 08:47
PROVIDERS: ATTEND Physician Assistant
DX: R59.0 Localized enlarged lymph nodes (principal); R92.8 Other abnormal and inconclusive findings on diagnostic imaging of breast; Z80.3 Family history of malignant neoplasm of breast

== ENCOUNTER 2022-08-30 16:24 | Emergency (ER) | payer OTHER ==
[2022-08-30] MEDS ORDERED: KETOROLAC 60 MG/2 ML VIAL IM STA (16:39)
--- NOTE | 2022-08-30 16:41 | ED Physician Documentation ---
PD HPI HEAD INJURY - Stated complaint Stated Complaint: FALL - Chief complaint Chief Complaint: Trauma Hd/Nk - History obtained from History obtained from: Patient - Additional information Additional information: 37-year-old woman with no possibility of , was in her usual state of health around 730 this morning while in chair she was sitting on broken gave out from under her and she fell backwards hitting the floor with the back of her head and right shoulder. She has significant/severe headache. There was loss of consciousness. She also has severe pain in the right shoulder with numbness in the right arm. 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 - Present Medications Home Medications: Ambulatory Orders Medication Instructions Recorded Confirmed Fluticasone/Salmeterol [Advair 1 puffs INH DAILY 04/20/14 02/15/22 500-50 Diskus] Albuterol Sulf [Ventolin Hfa 2 - 3 puffs INH QID #1 each 02/15/22 Inhaler] Benzonatate [Tessalon] 100 mg PO TID PRN #20 cap 02/15/22 Divalproex Sodium [Depakote] 750 mg PO DAILY 02/15/22 02/15/22 Ondansetron Odt [Zofran] 4 mg TL Q6H PRN #10 tablet 02/15/22 dexAMETHasone [Decadron] 4 mg PO DAILY #5 tablet 02/15/22 Acetaminophen/Cod 300/30 [Tylenol 1 - 2 each PO Q6HR PRN #14 tablet 08/16/22 #3] Ondansetron Odt [Zofran Odt] 4 mg TL Q6H PRN #14 tablet 08/16/22 Acetaminophen/Cod 300/30 [Tylenol 1 - 2 tab PO Q4-6H PRN #15 tablet 08/30/22 #3] - Allergies Allergies/Adverse Reactions: Allergies Allergy/AdvReac Type Severity Reaction Status Date / Time acetaminophen [From Percocet] Allergy Anaphylaxis Verified 08/30/22 16:27 betamethasone valerate * Allergy Hives Verified 08/30/22 16:27 [From Valisone] diazepam [From Valium] Allergy Anaphylaxis Verified 08/30/22 16:27 hydrocodone [From Vicodin] Allergy Anaphylaxis Verified 08/30/22 16:27 morphine Allergy Anaphylaxis Verified 08/30/22 16:27 NSAIDS (Non-Steroidal Allergy Hives Verified 08/30/22 16:27 Anti-Inflamma oxycodone [From Percocet] Allergy Anaphylaxis Verified 08/30/22 16:27 pain medicine Allergy Respiratory Uncoded 08/30/22 16:27 - Social History Does the pt smoke?: No Smoking Status: Never smoker Does the pt drink ETOH?: Yes Does the pt have substance abuse?: No - Immunizations Immunizations are current?: Yes PD ED PE NORMAL - Vitals Vital signs reviewed: Yes - General General: Alert and oriented X 3, No acute distress - HEENT HEENT: PERRL, EOMI - Neck Neck: Supple, no meningeal sign, Other (Mild low C-spine tenderness) - Extremities Extremities: Other (Mild diffuse tenderness of the right shoulder and elbow with full range of motion. Diminished sensation throughout the right arm in a nondermatomal pattern. 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, thumb extension, interosseous, and flexion extension of the wrist.) - Neuro Neuro: Alert and oriented X 3, Normal speech - Psych Psych: Normal mood, Normal affect Results - Vitals Vitals: Vital Signs - 24 hr 08/30/22 08/30/22 08/30/22 16:27 16:58 17:16 Temperature 36.5 C Heart Rate 77 65 Respiratory 18 18 20 Rate Blood Pressure 135/70 H 115/68 O2 Saturation 98 100 08/30/22 17:56 Temperature Heart Rate 69 Respiratory 20 Rate Blood Pressure 101/58 L O2 Saturation 100 Oxygen O2 Source Room air - Rads (name of study) CT of the head, C-spine, and x-rays of the right shoulder and right elbow are negative for acute trauma findings. Relevant Findings:: Final report received, EMP independent interpretation of test PD Medical Decision Making - ED course ED course: 37-year-old woman with a fall backwards from a chair with concussive symptoms and also shoulder and elbow pain on the right with negative relevant imaging. Feeling better after IM Toradol. Departure - Departure Disposition: 01 Home, Self Care Clinical Impression: Fall from chair, initial encounter Concussion Qualifiers: Encounter type: initial encounter Loss of consciousness presence/duration: with LOC of 30 min or less Qualified Code(s): S06.0X1A - Concussion with loss of consciousness of 30 minutes or less, initial encounter Injury of head and neck Qualifiers: Encounter type: initial encounter Qualified Code(s): S09.90XA - Unspecified injury of head, initial encounter Contusion of right shoulder Qualifiers: Encounter type: initial encounter Qualified Code(s): S40.011A - Contusion of right shoulder, initial encounter Contusion of right elbow Qualifiers: Encounter type: initial encounter Qualified Code(s): S50.01XA - Contusion of right elbow, initial encounter Condition: Good Record reviewed to determine appropriate education?: Yes Instructions: ED Contusion Soft Tissue, ED Head Injury Closed, ED Sprain Strain Neck Prescriptions: Acetaminophen/Cod 300/30 [Tylenol #3] 1 - 2 tab PO Q4-6H PRN #15 tablet PRN Reason: pain Comments: I sent your prescription electronically to [facility] in [place]. Call your doctor for follow-up appointment, return for new or worsening symptoms. I am prescribing a short course of narcotic pain medication for you. These are potentially dangerous and addictive medications that should be used carefully. These medications may constipate you. Take an fquu-ice-fvduvhg stool softener (docusate) twice daily with plenty of water while taking these medications. If you go 24 hours without a bowel movement, take edku-tiq-xovclyl miralax, per package instructions. Do not drink or drive while taking these medications. If you received narcotic or sedating medications while in the emergency department, do not drive for 24 hours. Store this medication in a safe, secure place and out of reach of children. It is a violation of federal law to give or sell this medication to another person or to use in a manner other than prescribed. The ED will not refill narcotic prescriptions, including prescriptions lost or stolen. To dispose of unwanted medications: 1. [facility] [address] in [place] has a medication drop box. They accept prescription medications (in pill form) Sunday through Sunday 9:00 a.m. to 5:00 p.m. 2. The [facility] [employer] accepts prescription medications (in pill form only) for disposal year round. Call for more information. 3. Contact the [facility] for the next [facility] sponsored prescription drug collection event. , [phone], or [phone]; Note that many narcotic pain relievers also contain Tylenol/acetaminophen. Please ensure that your total dose of acetaminophen from all sources does not exceed 3 g (3000 mg) per day. Forms: Activity restrictions Discharge Date/Time: 08/30/22 18:00
--- OUTSIDE RECORDS SUMMARY | 2022-08-30 17:09 | EXTERNAL MEDICAL SUMMARY RPT | Continuity of Care Document ---
Author Name Unknown Address [address] [place] [address] Phone Organization [facility] Address [address] [place] [address] Phone Care Team Providers Care Hand Mold Maker Name Role Phone Derian Helton Unavailable Unavailable Allergies and Intolerances date description facility type (no date) acetaminophen [facility] (unknown) (no date) diazepam [facility] (unknown) (no date) morphine [facility] (unknown) (no date) oxycodone [facility] (unknown) Problems date description facility 2022-07-19 00:00 [facility] Procedures date description facility 2022-07-19 00:00 Computed tomography angiography of head and neck vessels with contrast [facility] Results/Labs test date author facility value unit interpretation Result panel 1 (unknown) (no date) (unknown) [facility] (no value) (units unknown) (unknown) Result panel 2 (unknown) (no date) (unknown) [facility] (no value) (units unknown) (unknown) Result panel 3 (unknown) (no date) (unknown) [facility] (no value) (units unknown) (unknown) Result panel 4 (unknown) (no date) (unknown) [facility] (no value) (units unknown) (unknown) Result panel 5 (unknown) (no date) (unknown) [facility] (no value) (units unknown) (unknown) Result panel 6 (unknown) (no date) (unknown) [facility] (no value) (units unknown) (unknown) Result panel 7 (unknown) (no date) (unknown) [facility] (no value) (units unknown) (unknown) Result panel 8 (unknown) (no date) (unknown) [facility] (no value) (units unknown) (unknown) Result panel 9 (unknown) (no date) (unknown) [facility] (no value) (units unknown) (unknown) Result panel 10 (unknown) (no date) (unknown) [facility] (no value) (units unknown) (unknown) Result panel 11 (unknown) (no date) (unknown) [facility] (no value) (units unknown) (unknown) Result panel 12 (unknown) (no date) (unknown) [facility] (no value) (units unknown) (unknown) Result panel 13 (unknown) (no date) (unknown) [facility] (no value) (units unknown) (unknown) Result panel 14 (unknown) (no date) (unknown) [facility] (no value) (units unknown) (unknown) Result panel 15 (unknown) (no date) (unknown) [facility] (no value) (units unknown) (unknown) Result panel 16 (unknown) (no date) (unknown) [facility] (no value) (units unknown) (unknown) Result panel 17 (unknown) (no date) (unknown) [facility] (no value) (units unknown) (unknown) Result panel 18 (unknown) (no date) (unknown) [facility] (no value) (units unknown) (unknown) Result panel 19 (unknown) (no date) (unknown) [facility] (no value) (units unknown) (unknown) Result panel 20 (unknown) (no date) (unknown) [facility] (no value) (units unknown) (unknown) Result panel 21 (unknown) (no date) (unknown) [facility] (no value) (units unknown) (unknown) Result panel 22 (unknown) (no date) (unknown) [facility] (no value) (units unknown) (unknown) Result panel 23 (unknown) (no date) (unknown) [facility] (no value) (units unknown) (unknown) Result panel 24 (unknown) (no date) (unknown) [facility] (no value) (units unknown) (unknown) Result panel 25 (unknown) (no date) (unknown) [facility] (no value) (units unknown) (unknown) Result panel 26 (unknown) (no date) (unknown) [facility] (no value) (units unknown) (unknown) Result panel 27 (unknown) (no date) (unknown) [facility] (no value) (units unknown) (unknown) Result panel 28 (unknown) (no date) (unknown) [facility] (no value) (units unknown) (unknown) Result panel 29 (unknown) (no date) (unknown) [facility] (no value) (units unknown) (unknown) Result panel 30 (unknown) (no date) (unknown) [facility] (no value) (units unknown) (unknown) Result panel 31 (unknown) (no date) (unknown) [facility] (no value) (units unknown) (unknown) Result panel 32 (unknown) (no date) (unknown) [facility] (no value) (units unknown) (unknown) Result panel 33 (unknown) (no date) (unknown) [facility] (no value) (units unknown) (unknown) Result panel 34 (unknown) (no date) (unknown) [facility] (no value) (units unknown) (unknown) Result panel 35 (unknown) (no date) (unknown) [facility] (no value) (units unknown) (unknown) Result panel 36 (unknown) (no date) (unknown) [facility] (no value) (units unknown) (unknown) Result panel 37 (unknown) (no date) (unknown) [facility] (no value) (units unknown) (unknown) Result panel 38 (unknown) (no date) (unknown) [facility] (no value) (units unknown) (unknown) Result panel 39 (unknown) (no date) (unknown) [facility] (no value) (units unknown) (unknown) Result panel 40 (unknown) (no date) (unknown) [facility] (no value) (units unknown) (unknown) Result panel 41 (unknown) (no date) (unknown) [facility] (no value) (units unknown) (unknown) Result panel 42 (unknown) (no date) (unknown) [facility] (no value) (units unknown) (unknown) Result panel 43 (unknown) (no date) (unknown) [facility] (no value) (units unknown) (unknown) Result panel 44 (unknown) (no date) (unknown) [facility] (no value) (units unknown) (unknown) Result panel 45 (unknown) (no date) (unknown) [facility] (no value) (units unknown) (unknown) Result panel 46 (unknown) (no date) (unknown) [facility] (no value) (units unknown) (unknown) Result panel 47 (unknown) (no date) (unknown) [facility] (no value) (units unknown) (unknown) Result panel 48 (unknown) (no date) (unknown) [facility] (no value) (units unknown) (unknown) Result panel 49 (unknown) (no date) (unknown) [facility] (no value) (units unknown) (unknown) Result panel 50 (unknown) (no date) (unknown) [facility] (no value) (units unknown) (unknown) Result panel 51 (unknown) (no date) (unknown) [facility] (no value) (units unknown) (unknown) Result panel 52 (unknown) (no date) (unknown) [facility] (no value) (units unknown) (unknown) Result panel 53 (unknown) (no date) (unknown) [facility] (no value) (units unknown) (unknown) Result panel 54 (unknown) (no date) (unknown) [facility] (no value) (units unknown) (unknown) Result panel 55 (unknown) (no date) (unknown) [facility] (no value) (units unknown) (unknown) Result panel 56 (unknown) (no date) (unknown) [facility] (no value) (units unknown) (unknown) Result panel 57 (unknown) (no date) (unknown) [facility] (no value) (units unknown) (unknown) Result panel 58 (unknown) (no date) (unknown) [facility] (no value) (units unknown) (unknown) Result panel 59 (unknown) (no date) (unknown) [facility] (no value) (units unknown) (unknown) Result panel 60 (unknown) (no date) (unknown) [facility] (no value) (units unknown) (unknown) Result panel 61 (unknown) (no date) (unknown) [facility] (no value) (units unknown) (unknown) Result panel 62 (unknown) (no date) (unknown) [facility] (no value) (units unknown) (unknown) Result panel 63 (unknown) (no date) (unknown) [facility] (no value) (units unknown) (unknown) Result panel 64 (unknown) (no date) (unknown) [facility] (no value) (units unknown) (unknown) Result panel 65 (unknown) (no date) (unknown) [facility] (no value) (units unknown) (unknown) Result panel 66 (unknown) (no date) (unknown) [facility] (no value) (units unknown) (unknown) Result panel 67 (unknown) (no date) (unknown) [facility] (no value) (units unknown) (unknown) Result panel 68 (unknown) (no date) (unknown) [facility] (no value) (units unknown) (unknown) Result panel 69 (unknown) (no date) (unknown) [facility] (no value) (units unknown) (unknown) Result panel 70 (unknown) (no date) (unknown) [facility] (no value) (units unknown) (unknown) Result panel 71 (unknown) (no date) (unknown) [facility] (no value) (units unknown) (unknown) Result panel 72 (unknown) (no date) (unknown) [facility] (no value) (units unknown) (unknown) Result panel 73 (unknown) (no date) (unknown) [facility] (no value) (units unknown) (unknown) Result panel 74 (unknown) (no date) (unknown) [facility] (no value) (units unknown) (unknown) Result panel 75 (unknown) (no date) (unknown) [facility] (no value) (units unknown) (unknown) Result panel 76 (unknown) (no date) (unknown) [facility] (no value) (units unknown) (unknown) Result panel 77 (unknown) (no date) (unknown) [facility] (no value) (units unknown) (unknown) Result panel 78 (unknown) (no date) (unknown) [facility] (no value) (units unknown) (unknown) Result panel 79 (unknown) (no date) (unknown) [facility] (no value) (units unknown) (unknown) Result panel 80 (unknown) (no date) (unknown) [facility] (no value) (units unknown) (unknown) Result panel 81 (unknown) (no date) (unknown) [facility] (no value) (units unknown) (unknown) Result panel 82 (unknown) (no date) (unknown) [facility] (no value) (units unknown) (unknown) Result panel 83 (unknown) (no date) (unknown) [facility] (no value) (units unknown) (unknown) Result panel 84 (unknown) (no date) (unknown) [facility] (no value) (units unknown) (unknown) Result panel 85 (unknown) (no date) (unknown) [facility] (no value) (units unknown) (unknown) Result panel 86 (unknown) (no date) (unknown) [facility] (no value) (units unknown) (unknown) Result panel 87 (unknown) (no date) (unknown) [facility] (no value) (units unknown) (unknown) Result panel 88 (unknown) (no date) (unknown) [facility] (no value) (units unknown) (unknown) Result panel 89 (unknown) (no date) (unknown) [facility] (no value) (units unknown) (unknown) Result panel 90 (unknown) (no date) (unknown) [facility] (no value) (units unknown) (unknown) Result panel 91 (unknown) (no date) (unknown) [facility] (no value) (units unknown) (unknown) Result panel 92 (unknown) (no date) (unknown) [facility] (no value) (units unknown) (unknown) Result panel 93 (unknown) (no date) (unknown) [facility] (no value) (units unknown) (unknown) Result panel 94 (unknown) (no date) (unknown) [facility] (no value) (units unknown) (unknown) Result panel 95 (unknown) (no date) (unknown) [facility] (no value) (units unknown) (unknown) Result panel 96 (unknown) (no date) (unknown) [facility] (no value) (units unknown) (unknown) Result panel 97 (unknown) (no date) (unknown) [facility] (no value) (units unknown) (unknown) Result panel 98 (unknown) (no date) (unknown) [facility] (no value) (units unknown) (unknown) Result panel 99 (unknown) (no date) (unknown) [facility] (no value) (units unknown) (unknown) Result panel 100 (unknown) (no date) (unknown) [facility] (no value) (units unknown) (unknown) Result panel 101 (unknown) (no date) (unknown) [facility] (no value) (units unknown) (unknown) Result panel 102 (unknown) (no date) (unknown) [facility] (no value) (units unknown) (unknown) Result panel 103 (unknown) (no date) (unknown) [facility] (no value) (units unknown) (unknown) Result panel 104 (unknown) (no date) (unknown) [facility] (no value) (units unknown) (unknown) Result panel 105 (unknown) (no date) (unknown) [facility] (no value) (units unknown) (unknown) Result panel 106 (unknown) (no date) (unknown) [facility] (no value) (units unknown) (unknown) Result panel 107 (unknown) (no date) (unknown) [facility] (no value) (units unknown) (unknown) Result panel 108 (unknown) (no date) (unknown) [facility] (no value) (units unknown) (unknown) Result panel 109 (unknown) (no date) (unknown) [facility] (no value) (units unknown) (unknown) Result panel 110 (unknown) (no date) (unknown) [facility] (no value) (units unknown) (unknown) Result panel 111 (unknown) (no date) (unknown) [facility] (no value) (units unknown) (unknown) Result panel 112 (unknown) (no date) (unknown) [facility] (no value) (units unknown) (unknown) Result panel 113 (unknown) (no date) (unknown) [facility] (no value) (units unknown) (unknown) Result panel 114 (unknown) (no date) (unknown) [facility] (no value) (units unknown) (unknown) Result panel 115 (unknown) (no date) (unknown) [facility] (no value) (units unknown) (unknown) Result panel 116 (unknown) (no date) (unknown) [facility] (no value) (units unknown) (unknown) Result panel 117 (unknown) (no date) (unknown) [facility] (no value) (units unknown) (unknown) Result panel 118 (unknown) (no date) (unknown) [facility] (no value) (units unknown) (unknown) Result panel 119 (unknown) (no date) (unknown) [facility] (no value) (units unknown) (unknown) Result panel 120 (unknown) (no date) (unknown) [facility] (no value) (units unknown) (unknown) Result panel 121 (unknown) (no date) (unknown) [facility] (no value) (units unknown) (unknown) Result panel 122 (unknown) (no date) (unknown) [facility] (no value) (units unknown) (unknown) Result panel 123 (unknown) (no date) (unknown) [facility] (no value) (units unknown) (unknown) Result panel 124 (unknown) (no date) (unknown) [facility] (no value) (units unknown) (unknown) Result panel 125 (unknown) (no date) (unknown) [facility] (no value) (units unknown) (unknown) Result panel 126 (unknown) (no date) (unknown) [facility] (no value) (units unknown) (unknown) Result panel 127 (unknown) (no date) (unknown) [facility] (no value) (units unknown) (unknown) Result panel 128 (unknown) (no date) (unknown) [facility] (no value) (units unknown) (unknown) Result panel 129 (unknown) (no date) (unknown) [facility] (no value) (units unknown) (unknown) Result panel 130 (unknown) (no date) (unknown) [facility] (no value) (units unknown) (unknown) Result panel 131 (unknown) (no date) (unknown) (unknown) (no value) (units unknown) (unknown) (unknown) (no date) (unknown) (unknown) 07/19/22 (units unknown) (unknown) (unknown) (no date) (unknown) (unknown) 1. No evidence acute intracranial process. (units unknown) (unknown) (unknown) (no date) (unknown) (unknown) [address] [place] [address] (units unknown) (unknown) (unknown) (no date) (unknown) (unknown) 2. Unremarkable CTA head. No stenosis, aneurysm, occlusion, or focal filling (units unknown) (unknown) (unknown) (no date) (unknown) (unknown) 3. Patent carotids. (units unknown) (unknown) (unknown) (no date) (unknown) (unknown) Accession Number: [id number] (units unknown) (unknown) (unknown) (no date) (unknown) (unknown) Age/Sex: 37 / F Date of Service: (units unknown) (unknown) (unknown) (no date) (unknown) (unknown) [place] [address] (units unknown) (unknown) (unknown) (no date) (unknown) [...] (unknown) (no date) (unknown) (unknown) : 1985 Acct:[id number] (units unknown) (unknown) (unknown) (no date) (unknown) [...] unknown) (unknown) (unknown) (no date) (unknown) (unknown) [facility] (units unknown) (unknown) (unknown) (no date) (unknown) (unknown) Loc: ED (units unknown) (unknown) (unknown) (no date) (unknown) (unknown) MR#: [id number] (units unknown) (unknown) (unknown) (no date) (unknown) (unknown) NECK CT ANGIOGRAPHY: (units unknown) (unknown) (unknown) (no date) (unknown) (unknown) Orbits appear normal. (units unknown) (unknown) (unknown) (no date) (unknown) (unknown) Ordering Provider: Isreal Dunne MD (units unknown) (unknown) (unknown) (no date) (unknown) (unknown) PROCEDURE: CT ANGIO HEAD AND NECK (units unknown) (unknown) (unknown) (no date) (unknown) (unknown) Patient: Ayaka Mark (units unknown) (unknown) (unknown) (no date) [...] (no date) (unknown) (unknown) arch through the [place]. Post-contrast 4.5 mm thick sections [...] unknown) (unknown) (unknown) (no date) (unknown) (unknown) [id number] ojection (MIP) (units unknown) (unknown) (unknown) (no [...] (unknown) (no date) (unknown) (unknown) : 1985 Acct:[id number] (units unknown) (unknown) (unknown) (no date) (unknown) [...] unknown) (unknown) (unknown) (no date) (unknown) (unknown) [address] [address] (units unknown) (unknown) (unknown) (no date) (unknown) [...] (unknown) (unknown) (no date) (unknown) (unknown) Patient: Ayaka Mark (units unknown) (unknown) (unknown) (no date) [...] (unknown) (unknown) (no date) (unknown) (unknown) R#: [id number] (units unknown) (unknown) (unknown) (no date) (unknown) [...] (unknown) (no date) (unknown) (unknown) : 1985 Acct:[id number] (units unknown) (unknown) (unknown) (no date) (unknown) [...] unknown) (unknown) (unknown) (no date) (unknown) (unknown) [address] [address] (units unknown) (unknown) (unknown) (no date) (unknown) [...] (unknown) (unknown) (no date) (unknown) (unknown) Patient: Ayaka Mark (units unknown) (unknown) (unknown) (no date) [...] (unknown) (unknown) (no date) (unknown) (unknown) R#: [id number] (units unknown) (unknown) (unknown) (no date) (unknown) [...] as entire arm and hands and fingers. 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 No recent illness. No cough cold congestion [...] (unknown) (no date) (unknown) (unknown) : 1985 Acct:[id number] (units unknown) (unknown) (unknown) (no date) (unknown) [...] unknown) (unknown) (unknown) (no date) (unknown) (unknown) [address] [address] (units unknown) (unknown) (unknown) (no date) (unknown) [...] (unknown) (unknown) (no date) (unknown) (unknown) Patient: Ayaka Mark (units unknown) (unknown) (unknown) (no date) [...] (unknown) (unknown) (no date) (unknown) (unknown) R#: [id number] (units unknown) (unknown) (unknown) (no date) (unknown) [...] as entire arm and hands and fingers. 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 No recent illness. No cough cold congestion [...] (unknown) (no date) (unknown) (unknown) : 1985 Acct:[id number] (units unknown) (unknown) (unknown) (no date) (unknown) [...] unknown) (unknown) (unknown) (no date) (unknown) (unknown) [address] [address] (units unknown) (unknown) (unknown) (no date) (unknown) [...] (no date) (unknown) (unknown) Lymph # (Auto) (4767-0803) /uL (units unknown) (unknown) (unknown) (no date) (unknown) (unknown) Lymph # (Auto) 2400 (8378-8404) /uL (units unknown) (unknown) (unknown) (no date) [...] unknown) (unknown) (unknown) (no date) (unknown) (unknown) [place] # (Auto) (0-900) /uL (units unknown) (unknown) (unknown) (no date) (unknown) (unknown) [place] # (Auto) 300 (0-900) /uL (units unknown) (unknown) (unknown) (no date) (unknown) (unknown) [place] % (Auto) (3-14) % (units unknown) (unknown) (unknown) (no date) (unknown) (unknown) [place] % (Auto) 4.9 (3-14) % (units unknown) [...] (no date) (unknown) (unknown) Neut # (Auto) (8546-9270) /uL (units unknown) (unknown) (unknown) (no date) (unknown) (unknown) Neut # (Auto) 3800 (1295-1042) /uL (units unknown) (unknown) (unknown) (no date) [...] (unknown) (unknown) (no date) (unknown) (unknown) Patient: Ayaka Mark (units unknown) (unknown) (unknown) (no date) [...] (unknown) (unknown) (no date) (unknown) (unknown) R#: [id number] (units unknown) (unknown) (unknown) (no date) (unknown) [...] (unknown) (no date) (unknown) (unknown) Urine Specific [place] 1.010 (units unknown) (unknown) (unknown) (no date) [...] as entire arm and hands and fingers. 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 No recent illness. No cough cold congestion [...] phone number to establish family doctor. Call [phone] return if worse if (units unknown) (unknown) [...] (unknown) (no date) (unknown) (unknown) : 1985 Acct:[id number] (units unknown) (unknown) (unknown) (no date) (unknown) [...] unknown) (unknown) (unknown) (no date) (unknown) (unknown) [address] [address] (units unknown) (unknown) (unknown) (no date) (unknown) [...] (no date) (unknown) (unknown) Lymph # (Auto) (8347-5241) /uL (units unknown) (unknown) (unknown) (no date) (unknown) (unknown) Lymph # (Auto) 2400 (0093-1954) /uL (units unknown) (unknown) (unknown) (no date) [...] unknown) (unknown) (unknown) (no date) (unknown) (unknown) [place] # (Auto) (0-900) /uL (units unknown) (unknown) (unknown) (no date) (unknown) (unknown) [place] # (Auto) 300 (0-900) /uL (units unknown) (unknown) (unknown) (no date) (unknown) (unknown) [place] % (Auto) (3-14) % (units unknown) (unknown) (unknown) (no date) (unknown) (unknown) [place] % (Auto) 4.9 (3-14) % (units unknown) [...] (no date) (unknown) (unknown) Neut # (Auto) (3600-7517) /uL (units unknown) (unknown) (unknown) (no date) (unknown) (unknown) Neut # (Auto) 3800 (9721-5860) /uL (units unknown) (unknown) (unknown) (no date) [...] (unknown) (unknown) (no date) (unknown) (unknown) Patient: Ayaka Mark (units unknown) (unknown) (unknown) (no date) [...] (unknown) (unknown) (no date) (unknown) (unknown) R#: [id number] (units unknown) (unknown) (unknown) (no date) (unknown) [...] (unknown) (no date) (unknown) (unknown) Urine Specific [place] 1.010 (units unknown) (unknown) (unknown) (no date) [...] as entire arm and hands and fingers. 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 No recent illness. No cough cold congestion [...] . He is driving. She states in [place] she was getting (units unknown) (unknown) (unknown) (no date) (unknown) (unknown) phone number to establish family doctor. Call [phone] return if worse if (units unknown) (unknown) [...] (unknown) (no date) (unknown) (unknown) : 1985 Acct:[id number] (units unknown) (unknown) (unknown) (no date) (unknown) [...] unknown) (unknown) (unknown) (no date) (unknown) (unknown) [address] [address] (units unknown) (unknown) (unknown) (no date) (unknown) [...] (no date) (unknown) (unknown) Lymph # (Auto) (5473-9143) /uL (units unknown) (unknown) (unknown) (no date) (unknown) (unknown) Lymph # (Auto) 2400 (4558-0470) /uL (units unknown) (unknown) (unknown) (no date) [...] unknown) (unknown) (unknown) (no date) (unknown) (unknown) [place] # (Auto) (0-900) /uL (units unknown) (unknown) (unknown) (no date) (unknown) (unknown) [place] # (Auto) 300 (0-900) /uL (units unknown) (unknown) (unknown) (no date) (unknown) (unknown) [place] % (Auto) (3-14) % (units unknown) (unknown) (unknown) (no date) (unknown) (unknown) [place] % (Auto) 4.9 (3-14) % (units unknown) [...] (no date) (unknown) (unknown) Neut # (Auto) (2433-9161) /uL (units unknown) (unknown) (unknown) (no date) (unknown) (unknown) Neut # (Auto) 3800 (0470-6636) /uL (units unknown) (unknown) (unknown) (no date) [...] (unknown) (unknown) (no date) (unknown) (unknown) Patient: Ayaka Mark (units unknown) (unknown) (unknown) (no date) [...] (unknown) (unknown) (no date) (unknown) (unknown) R#: [id number] (units unknown) (unknown) (unknown) (no date) (unknown) [...] (unknown) (no date) (unknown) (unknown) Urine Specific [place] 1.010 (units unknown) (unknown) (unknown) (no date) [...] as entire arm and hands and fingers. 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 No recent illness. No cough cold congestion [...] . He is driving. She states in [place] she was getting (units unknown) (unknown) (unknown) (no date) (unknown) (unknown) phone number to establish family doctor. Call [phone] return if worse if (units unknown) (unknown) [...] (unknown) (no date) (unknown) (unknown) : 1985 Acct:[id number] (units unknown) (unknown) (unknown) (no date) (unknown) [...] unknown) (unknown) (unknown) (no date) (unknown) (unknown) [address] [address] (units unknown) (unknown) (unknown) (no date) (unknown) [...] (no date) (unknown) (unknown) Lymph # (Auto) (3533-4419) /uL (units unknown) (unknown) (unknown) (no date) (unknown) (unknown) Lymph # (Auto) 2400 ([id number]) /uL (units unknown) (unknown) (unknown) (no date) [...] unknown) (unknown) (unknown) (no date) (unknown) (unknown) [place] # (Auto) (0-900) /uL (units unknown) (unknown) (unknown) (no date) (unknown) (unknown) [place] # (Auto) 300 (0-900) /uL (units unknown) (unknown) (unknown) (no date) (unknown) (unknown) [place] % (Auto) (3-14) % (units unknown) (unknown) (unknown) (no date) (unknown) (unknown) [place] % (Auto) 4.9 (3-14) % (units unknown) [...] (no date) (unknown) (unknown) Neut # (Auto) (5320-1587) /uL (units unknown) (unknown) (unknown) (no date) (unknown) (unknown) Neut # (Auto) 3800 (3928-4907) /uL (units unknown) (unknown) (unknown) (no date) [...] (unknown) (unknown) (no date) (unknown) (unknown) Patient: Ayaka Mark (units unknown) (unknown) (unknown) (no date) [...] (unknown) (unknown) (no date) (unknown) (unknown) R#: [id number] (units unknown) (unknown) (unknown) (no date) (unknown) [...] (unknown) (no date) (unknown) (unknown) Urine Specific [place] 1.010 (units unknown) (unknown) (unknown) (no date) [...] (no date) (unknown) (unknown) arch through the [place]. Post-contrast 4.5 mm thick sections [...] as entire arm and hands and fingers. 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 No recent illness. No cough cold congestion fever (units unknown) (unknown) (unknown) (no date) (unknown) (unknown) lesions. (units unknown) (unknown) (unknown) (no date) (unknown) (unknown) leukocytosis, troponin less than 0.012 (units unknown) (unknown) (unknown) (no date) (unknown) (unknown) rifcvbr-zyuhauhku-jh ojection (MIP) (units unknown) (unknown) (unknown) (no [...] . He is driving. She states in [place] she was getting (units unknown) (unknown) (unknown) (no date) (unknown) (unknown) patient. Return precautions reviewed patient. Patient and family desire (units unknown) (unknown) (unknown) (no date) (unknown) (unknown) phone number to establish family doctor. Call [phone] return if worse if (units unknown) (unknown) [...] date description facility 2022-07-19 00:00 Ex-smoker (finding) [facility] Vital Signs date measurement value units 2022-07-19 [...]
--- NOTE | 2022-08-30 17:26 | XRAY Report ---
PROCEDURE: Elbow 3 View RT INDICATIONS: Head/neck/shoulder/R arm inj TECHNIQUE: 3 views of the elbow were acquired. COMPARISON: Same day right shoulder radiographs. FINDINGS: Bones: No fractures or dislocations. No suspicious bony lesions. Soft tissues: No effusion. No suspicious soft tissue calcifications or masses. IMPRESSION: No acute osseous abnormality. Reviewed by: Sincere Mendoza MD on 08/30/2022 5:25 PM PDT Approved by: Sincere Mendoza MD on 08/30/2022 5:25 PM PDT Station ID: [id number]
--- NOTE | 2022-08-30 17:27 | XRAY Report ---
PROCEDURE: Shoulder 3 View RT INDICATIONS: Head/neck/shoulder/R arm inj TECHNIQUE: 3 views of the shoulder were acquired. COMPARISON: None. FINDINGS: Bones: No fractures or dislocations. No suspicious bony lesions. Visualized ribs appear intact. Soft tissues: No suspicious soft tissue calcifications. IMPRESSION: No acute osseous abnormality. Reviewed by: Sincere Mendoza MD on 08/30/2022 5:25 PM PDT Approved by: Sincere Mendoza MD on 08/30/2022 5:25 PM PDT Station ID: [id number]
--- NOTE | 2022-08-30 17:38 | CT Report ---
PROCEDURE: CT brain without contrast INDICATIONS: Trauma, pain TECHNIQUE: Noncontrast 4.5 mm thick angled axial sections acquired from the foramen magnum to the vertex. For r adiation dose reduction, the following was used: automated exposure control, adjustment of mA and/or kV according to patient size. COMPARISON: None. FINDINGS: Image quality: Excellent. CSF spaces: Basal cisterns are patent. No extra-axial fluid collections. Ventricles are normal in size and shape. Brain: No midline shift. No intracranial masses or hemorrhage. Hughes-white matter interface is norm al. Skull and face: Calvarium and visualized facial bones are intact, without suspicious lesions. Sinuses: Visualized sinuses and mastoids are clear. IMPRESSION: Normal CT of the brain Reviewed by: Andres Cordova MD on 08/30/2022 4:37 PM AKSOCORRO Approved by: Andres Cordova MD on 08/30/2022 4:37 PM AKSOCORRO Station ID: [id number]
--- NOTE | 2022-08-30 17:45 | CT Report ---
PROCEDURE: CT cervical spine without contrast INDICATIONS: Head/neck/shoulder/R arm inj TECHNIQUE: Noncontrast 3 mm thick sections acquired from the skull base to the T4 level. Sagittal and coronal r eformats were then constructed. For radiation dose reduction, the following was used: automated exp osure control, adjustment of mA and/or kV according to patient size. COMPARISON: None. FINDINGS: Image quality: Excellent. Bones: No fractures or dislocations. Visualized superior ribs are intact. Soft tissues: Prevertebral soft tissues are normal in thickness. No paravertebral hematomas. No ap ical pneumothoraces. IMPRESSION: Unremarkable CT of the cervical spine Reviewed by: Andres Cordova MD on 08/30/2022 4:44 PM AKDT Approved by: Andres Cordova MD on 08/30/2022 4:44 PM AKDT Station ID: [id number]
[2022-08-30 17:59] VITALS: BP 101/58
== END 2022-08-30 18:00 | disposition home or self-care (01) ==
LOC: ED 16:24
DX: S06.0X1A Concussion with loss of consciousness of 30 minutes or less, initial encounter (principal); S40.011A Contusion of right shoulder, initial encounter; S50.01XA Contusion of right elbow, initial encounter; W07.XXXA Fall from chair, initial encounter; R59.0 Localized enlarged lymph nodes; R92.8 Other abnormal and inconclusive findings on diagnostic imaging of breast; Z80.3 Family history of malignant neoplasm of breast; M54.2 Cervicalgia
CPT/HCPCS: 96372; 99284

== ENCOUNTER 2022-09-27 21:31 | Emergency (ER) | payer OTHER ==
--- OUTSIDE RECORDS SUMMARY | 2022-09-27 21:48 | EXTERNAL MEDICAL SUMMARY RPT | Continuity of Care Document ---
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 Role Phone Derian Helton Unavailable Unavailable Allergies and Intolerances date description facility type (no date) acetaminophen [facility] (unknown) (no date) diazepam [facility] (unknown) (no date) morphine [facility] (unknown) (no date) oxycodone [facility] (unknown) Problems date description facility 2022-07-19 00:[facility] Procedures date description facility 2022-07-19 00:00 Computed tomography angiography of head and neck vessels with contrast [facility] Results/Labs test date author facility value unit interpretation Result panel 1 (unknown) (no date) (unknown) [facility] (no value) (units unknown) (unknown) Result panel 2 (unknown) (no date) (unknown) [facility] (no value) (units unknown) (unknown) Result panel 3 (unknown) (no date) (unknown) [facility] (no value) (units unknown) (unknown) Result panel 4 (unknown) (no date) (unknown) [facility] (no value) (units unknown) (unknown) Result panel 5 (unknown) (no date) (unknown) [facility] (no value) (units unknown) (unknown) Result panel 6 (unknown) (no date) (unknown) [facility] (no value) (units unknown) (unknown) Result panel 7 (unknown) (no date) (unknown) [facility] (no value) (units unknown) (unknown) Result panel 8 (unknown) (no date) (unknown) [facility] (no value) (units unknown) (unknown) Result panel 9 (unknown) (no date) (unknown) [facility] (no value) (units unknown) (unknown) Result panel 10 (unknown) (no date) (unknown) [facility] (no value) (units unknown) (unknown) Result panel 11 (unknown) (no date) (unknown) [facility] (no value) (units unknown) (unknown) Result panel 12 (unknown) (no date) (unknown) [facility] (no value) (units unknown) (unknown) Result panel 13 (unknown) (no date) (unknown) [facility] (no value) (units unknown) (unknown) Result panel 14 (unknown) (no date) (unknown) [facility] (no value) (units unknown) (unknown) Result panel 15 (unknown) (no date) (unknown) [facility] (no value) (units unknown) (unknown) Result panel 16 (unknown) (no date) (unknown) [facility] (no value) (units unknown) (unknown) Result panel 17 (unknown) (no date) (unknown) [facility] (no value) (units unknown) (unknown) Result panel 18 (unknown) (no date) (unknown) [facility] (no value) (units unknown) (unknown) Result panel 19 (unknown) (no date) (unknown) [facility] (no value) (units unknown) (unknown) Result panel 20 (unknown) (no date) (unknown) [facility] (no value) (units unknown) (unknown) Result panel 21 (unknown) (no date) (unknown) [facility] (no value) (units unknown) (unknown) Result panel 22 (unknown) (no date) (unknown) [facility] (no value) (units unknown) (unknown) Result panel 23 (unknown) (no date) (unknown) [facility] (no value) (units unknown) (unknown) Result panel 24 (unknown) (no date) (unknown) [facility] (no value) (units unknown) (unknown) Result panel 25 (unknown) (no date) (unknown) [facility] (no value) (units unknown) (unknown) Result panel 26 (unknown) (no date) (unknown) [facility] (no value) (units unknown) (unknown) Result panel 27 (unknown) (no date) (unknown) [facility] (no value) (units unknown) (unknown) Result panel 28 (unknown) (no date) (unknown) [facility] (no value) (units unknown) (unknown) Result panel 29 (unknown) (no date) (unknown) [facility] (no value) (units unknown) (unknown) Result panel 30 (unknown) (no date) (unknown) [facility] (no value) (units unknown) (unknown) Result panel 31 (unknown) (no date) (unknown) [facility] (no value) (units unknown) (unknown) Result panel 32 (unknown) (no date) (unknown) [facility] (no value) (units unknown) (unknown) Result panel 33 (unknown) (no date) (unknown) [facility] (no value) (units unknown) (unknown) Result panel 34 (unknown) (no date) (unknown) [facility] (no value) (units unknown) (unknown) Result panel 35 (unknown) (no date) (unknown) [facility] (no value) (units unknown) (unknown) Result panel 36 (unknown) (no date) (unknown) [facility] (no value) (units unknown) (unknown) Result panel 37 (unknown) (no date) (unknown) [facility] (no value) (units unknown) (unknown) Result panel 38 (unknown) (no date) (unknown) [facility] (no value) (units unknown) (unknown) Result panel 39 (unknown) (no date) (unknown) [facility] (no value) (units unknown) (unknown) Result panel 40 (unknown) (no date) (unknown) [facility] (no value) (units unknown) (unknown) Result panel 41 (unknown) (no date) (unknown) [facility] (no value) (units unknown) (unknown) Result panel 42 (unknown) (no date) (unknown) [facility] (no value) (units unknown) (unknown) Result panel 43 (unknown) (no date) (unknown) [facility] (no value) (units unknown) (unknown) Result panel 44 (unknown) (no date) (unknown) [facility] (no value) (units unknown) (unknown) Result panel 45 (unknown) (no date) (unknown) [facility] (no value) (units unknown) (unknown) Result panel 46 (unknown) (no date) (unknown) [facility] (no value) (units unknown) (unknown) Result panel 47 (unknown) (no date) (unknown) [facility] (no value) (units unknown) (unknown) Result panel 48 (unknown) (no date) (unknown) [facility] (no value) (units unknown) (unknown) Result panel 49 (unknown) (no date) (unknown) [facility] (no value) (units unknown) (unknown) Result panel 50 (unknown) (no date) (unknown) [facility] (no value) (units unknown) (unknown) Result panel 51 (unknown) (no date) (unknown) [facility] (no value) (units unknown) (unknown) Result panel 52 (unknown) (no date) (unknown) [facility] (no value) (units unknown) (unknown) Result panel 53 (unknown) (no date) (unknown) [facility] (no value) (units unknown) (unknown) Result panel 54 (unknown) (no date) (unknown) [facility] (no value) (units unknown) (unknown) Result panel 55 (unknown) (no date) (unknown) [facility] (no value) (units unknown) (unknown) Result panel 56 (unknown) (no date) (unknown) [facility] (no value) (units unknown) (unknown) Result panel 57 (unknown) (no date) (unknown) [facility] (no value) (units unknown) (unknown) Result panel 58 (unknown) (no date) (unknown) [facility] (no value) (units unknown) (unknown) Result panel 59 (unknown) (no date) (unknown) [facility] (no value) (units unknown) (unknown) Result panel 60 (unknown) (no date) (unknown) [facility] (no value) (units unknown) (unknown) Result panel 61 (unknown) (no date) (unknown) [facility] (no value) (units unknown) (unknown) Result panel 62 (unknown) (no date) (unknown) [facility] (no value) (units unknown) (unknown) Result panel 63 (unknown) (no date) (unknown) [facility] (no value) (units unknown) (unknown) Result panel 64 (unknown) (no date) (unknown) [facility] (no value) (units unknown) (unknown) Result panel 65 (unknown) (no date) (unknown) [facility] (no value) (units unknown) (unknown) Result panel 66 (unknown) (no date) (unknown) [facility] (no value) (units unknown) (unknown) Result panel 67 (unknown) (no date) (unknown) [facility] (no value) (units unknown) (unknown) Result panel 68 (unknown) (no date) (unknown) [facility] (no value) (units unknown) (unknown) Result panel 69 (unknown) (no date) (unknown) [facility] (no value) (units unknown) (unknown) Result panel 70 (unknown) (no date) (unknown) [facility] (no value) (units unknown) (unknown) Result panel 71 (unknown) (no date) (unknown) [facility] (no value) (units unknown) (unknown) Result panel 72 (unknown) (no date) (unknown) [facility] (no value) (units unknown) (unknown) Result panel 73 (unknown) (no date) (unknown) [facility] (no value) (units unknown) (unknown) Result panel 74 (unknown) (no date) (unknown) [facility] (no value) (units unknown) (unknown) Result panel 75 (unknown) (no date) (unknown) [facility] (no value) (units unknown) (unknown) Result panel 76 (unknown) (no date) (unknown) [facility] (no value) (units unknown) (unknown) Result panel 77 (unknown) (no date) (unknown) [facility] (no value) (units unknown) (unknown) Result panel 78 (unknown) (no date) (unknown) [facility] (no value) (units unknown) (unknown) Result panel 79 (unknown) (no date) (unknown) [facility] (no value) (units unknown) (unknown) Result panel 80 (unknown) (no date) (unknown) [facility] (no value) (units unknown) (unknown) Result panel 81 (unknown) (no date) (unknown) [facility] (no value) (units unknown) (unknown) Result panel 82 (unknown) (no date) (unknown) [facility] (no value) (units unknown) (unknown) Result panel 83 (unknown) (no date) (unknown) [facility] (no value) (units unknown) (unknown) Result panel 84 (unknown) (no date) (unknown) [facility] (no value) (units unknown) (unknown) Result panel 85 (unknown) (no date) (unknown) [facility] (no value) (units unknown) (unknown) Result panel 86 (unknown) (no date) (unknown) [facility] (no value) (units unknown) (unknown) Result panel 87 (unknown) (no date) (unknown) [facility] (no value) (units unknown) (unknown) Result panel 88 (unknown) (no date) (unknown) [facility] (no value) (units unknown) (unknown) Result panel 89 (unknown) (no date) (unknown) [facility] (no value) (units unknown) (unknown) Result panel 90 (unknown) (no date) (unknown) [facility] (no value) (units unknown) (unknown) Result panel 91 (unknown) (no date) (unknown) [facility] (no value) (units unknown) (unknown) Result panel 92 (unknown) (no date) (unknown) [facility] (no value) (units unknown) (unknown) Result panel 93 (unknown) (no date) (unknown) [facility] (no value) (units unknown) (unknown) Result panel 94 (unknown) (no date) (unknown) [facility] (no value) (units unknown) (unknown) Result panel 95 (unknown) (no date) (unknown) [facility] (no value) (units unknown) (unknown) Result panel 96 (unknown) (no date) (unknown) [facility] (no value) (units unknown) (unknown) Result panel 97 (unknown) (no date) (unknown) [facility] (no value) (units unknown) (unknown) Result panel 98 (unknown) (no date) (unknown) [facility] (no value) (units unknown) (unknown) Result panel 99 (unknown) (no date) (unknown) [facility] (no value) (units unknown) (unknown) Result panel 100 (unknown) (no date) (unknown) [facility] (no value) (units unknown) (unknown) Result panel 101 (unknown) (no date) (unknown) [facility] (no value) (units unknown) (unknown) Result panel 102 (unknown) (no date) (unknown) [facility] (no value) (units unknown) (unknown) Result panel 103 (unknown) (no date) (unknown) [facility] (no value) (units unknown) (unknown) Result panel 104 (unknown) (no date) (unknown) [facility] (no value) (units unknown) (unknown) Result panel 105 (unknown) (no date) (unknown) [facility] (no value) (units unknown) (unknown) Result panel 106 (unknown) (no date) (unknown) [facility] (no value) (units unknown) (unknown) Result panel 107 (unknown) (no date) (unknown) [facility] (no value) (units unknown) (unknown) Result panel 108 (unknown) (no date) (unknown) [facility] (no value) (units unknown) (unknown) Result panel 109 (unknown) (no date) (unknown) [facility] (no value) (units unknown) (unknown) Result panel 110 (unknown) (no date) (unknown) [facility] (no value) (units unknown) (unknown) Result panel 111 (unknown) (no date) (unknown) [facility] (no value) (units unknown) (unknown) Result panel 112 (unknown) (no date) (unknown) [facility] (no value) (units unknown) (unknown) Result panel 113 (unknown) (no date) (unknown) [facility] (no value) (units unknown) (unknown) Result panel 114 (unknown) (no date) (unknown) [facility] (no value) (units unknown) (unknown) Result panel 115 (unknown) (no date) (unknown) [facility] (no value) (units unknown) (unknown) Result panel 116 (unknown) (no date) (unknown) [facility] (no value) (units unknown) (unknown) Result panel 117 (unknown) (no date) (unknown) [facility] (no value) (units unknown) (unknown) Result panel 118 (unknown) (no date) (unknown) [facility] (no value) (units unknown) (unknown) Result panel 119 (unknown) (no date) (unknown) [facility] (no value) (units unknown) (unknown) Result panel 120 (unknown) (no date) (unknown) [facility] (no value) (units unknown) (unknown) Result panel 121 (unknown) (no date) (unknown) [facility] (no value) (units unknown) (unknown) Result panel 122 (unknown) (no date) (unknown) [facility] (no value) (units unknown) (unknown) Result panel 123 (unknown) (no date) (unknown) [facility] (no value) (units unknown) (unknown) Result panel 124 (unknown) (no date) (unknown) [facility] (no value) (units unknown) (unknown) Result panel 125 (unknown) (no date) (unknown) [facility] (no value) (units unknown) (unknown) Result panel 126 (unknown) (no date) (unknown) [facility] (no value) (units unknown) (unknown) Result panel 127 (unknown) (no date) (unknown) [facility] (no value) (units unknown) (unknown) Result panel 128 (unknown) (no date) (unknown) [facility] (no value) (units unknown) (unknown) Result panel 129 (unknown) (no date) (unknown) [facility] (no value) (units unknown) (unknown) Result panel 130 (unknown) (no date) (unknown) [facility] (no value) (units unknown) (unknown) Result panel 131 (unknown) (no date) (unknown) (unknown) (no value) (units unknown) (unknown) (unknown) (no date) (unknown) (unknown) 07/19/22 (units unknown) (unknown) (unknown) (no date) (unknown) (unknown) 1. No evidence acute intracranial process. (units unknown) (unknown) (unknown) (no date) (unknown) (unknown) [address] [place] [address] (units unknown) (unknown) (unknown) (no date) (unknown) (unknown) 2. Unremarkable CTA head. No stenosis, aneurysm, occlusion, or focal filling (units unknown) (unknown) (unknown) (no date) (unknown) (unknown) 3. Patent carotids. (units unknown) (unknown) (unknown) (no date) (unknown) (unknown) Accession Number: [id number] (units unknown) (unknown) (unknown) (no date) (unknown) (unknown) Age/Sex: 37 / F Date of Service: (units unknown) (unknown) (unknown) (no date) (unknown) (unknown) [place] [address] (units unknown) (unknown) (unknown) (no date) (unknown) [...] (unknown) (no date) (unknown) (unknown) : 1985 Acct:[id number] (units unknown) (unknown) (unknown) (no date) (unknown) [...] unknown) (unknown) (unknown) (no date) (unknown) (unknown) [facility] (units unknown) (unknown) (unknown) (no date) (unknown) (unknown) Loc: ED (units unknown) (unknown) (unknown) (no date) (unknown) (unknown) MR#: [id number] (units unknown) (unknown) (unknown) (no date) (unknown) [...] (no date) (unknown) (unknown) arch through the [place]. Post-contrast 4.5 mm thick sections [...] unknown) (unknown) (unknown) (no date) (unknown) (unknown) vhrqevx-[id number]-gt ojection (MIP) (units unknown) (unknown) (unknown) (no [...] (unknown) (no date) (unknown) (unknown) : 1985 Acct:[id number] (units unknown) (unknown) (unknown) (no date) (unknown) [...] (unknown) (unknown) (no date) (unknown) (unknown) [address] [address] (units unknown) (unknown) (unknown) (no date) (unknown) [...] (unknown) (unknown) (no date) (unknown) (unknown) R#: [id number] (units unknown) (unknown) (unknown) (no date) (unknown) [...] (unknown) (no date) (unknown) (unknown) : 1985 Acct:[id number] (units unknown) (unknown) (unknown) (no date) (unknown) [...] (unknown) (unknown) (no date) (unknown) (unknown) [address] [address] (units unknown) (unknown) (unknown) (no date) (unknown) [...] (unknown) (unknown) (no date) (unknown) (unknown) R#: [id number] (units unknown) (unknown) (unknown) (no date) (unknown) [...] as entire arm and hands and fingers. Child Watch Attendant is slightly weaker (units unknown) (unknown) (unknown) [...] (no date) (unknown) (unknown) is with the [employer]. No recent illness. No cough cold congestion [...] (unknown) (no date) (unknown) (unknown) : 1985 Acct:[id number] (units unknown) (unknown) (unknown) (no date) (unknown) [...] (unknown) (unknown) (no date) (unknown) (unknown) [address] [address] (units unknown) (unknown) (unknown) (no date) (unknown) [...] (unknown) (unknown) (no date) (unknown) (unknown) R#: [id number] (units unknown) (unknown) (unknown) (no date) (unknown) [...] as entire arm and hands and fingers. Child Watch Attendant is slightly weaker (units unknown) (unknown) (unknown) [...] (no date) (unknown) (unknown) is with the [employer]. No recent illness. No cough cold congestion [...] (unknown) (no date) (unknown) (unknown) : 1985 Acct:[id number] (units unknown) (unknown) (unknown) (no date) (unknown) [...] (unknown) (unknown) (no date) (unknown) (unknown) [address] [address] (units unknown) (unknown) (unknown) (no date) (unknown) [...] (no date) (unknown) (unknown) Lymph # (Auto) ([phone]) /uL (units unknown) (unknown) (unknown) (no date) (unknown) (unknown) Lymph # (Auto) 2400 (2808-8036) /uL (units unknown) (unknown) (unknown) (no date) [...] unknown) (unknown) (unknown) (no date) (unknown) (unknown) [place] # (Auto) (0-900) /uL (units unknown) (unknown) (unknown) (no date) (unknown) (unknown) [place] # (Auto) 300 (0-900) /uL (units unknown) (unknown) (unknown) (no date) (unknown) (unknown) [place] % (Auto) (3-14) % (units unknown) (unknown) (unknown) (no date) (unknown) (unknown) [place] % (Auto) 4.9 (3-14) % (units unknown) [...] (no date) (unknown) (unknown) Neut # (Auto) (4595-5319) /uL (units unknown) (unknown) (unknown) (no date) (unknown) (unknown) Neut # (Auto) 3800 (1454-9230) /uL (units unknown) (unknown) (unknown) (no date) [...] (unknown) (unknown) (no date) (unknown) (unknown) R#: [id number] (units unknown) (unknown) (unknown) (no date) (unknown) [...] (unknown) (no date) (unknown) (unknown) Urine Specific Normal 1.010 (units unknown) (unknown) (unknown) (no date) [...] as entire arm and hands and fingers. Child Watch Attendant is slightly weaker (units unknown) (unknown) (unknown) [...] (no date) (unknown) (unknown) is with the [employer]. No recent illness. No cough cold congestion [...] phone number to establish family doctor. Call [phone] return if worse if (units unknown) (unknown) [...] (unknown) (no date) (unknown) (unknown) : 1985 Acct:[id number] (units unknown) (unknown) (unknown) (no date) (unknown) [...] (unknown) (unknown) (no date) (unknown) (unknown) [address] [address] (units unknown) (unknown) (unknown) (no date) (unknown) [...] (no date) (unknown) (unknown) Lymph # (Auto) (4065-0117) /uL (units unknown) (unknown) (unknown) (no date) (unknown) (unknown) Lymph # (Auto) 2400 (5992-4351) /uL (units unknown) (unknown) (unknown) (no date) [...] unknown) (unknown) (unknown) (no date) (unknown) (unknown) [place] # (Auto) (0-900) /uL (units unknown) (unknown) (unknown) (no date) (unknown) (unknown) [place] # (Auto) 300 (0-900) /uL (units unknown) (unknown) (unknown) (no date) (unknown) (unknown) [place] % (Auto) (3-14) % (units unknown) (unknown) (unknown) (no date) (unknown) (unknown) [place] % (Auto) 4.9 (3-14) % (units unknown) [...] (no date) (unknown) (unknown) Neut # (Auto) (8269-1549) /uL (units unknown) (unknown) (unknown) (no date) (unknown) (unknown) Neut # (Auto) 3800 (0913-3477) /uL (units unknown) (unknown) (unknown) (no date) [...] (unknown) (unknown) (no date) (unknown) (unknown) R#: [id number] (units unknown) (unknown) (unknown) (no date) (unknown) [...] (unknown) (no date) (unknown) (unknown) Urine Specific Normal 1.010 (units unknown) (unknown) (unknown) (no date) [...] as entire arm and hands and fingers. Child Watch Attendant is slightly weaker (units unknown) (unknown) (unknown) [...] (no date) (unknown) (unknown) is with the [employer]. No recent illness. No cough cold congestion [...] . He is driving. She states in [place] she was getting (units unknown) (unknown) (unknown) (no date) (unknown) (unknown) phone number to establish family doctor. Call [phone] return if worse if (units unknown) (unknown) [...] (unknown) (no date) (unknown) (unknown) : 1985 Acct:[id number] (units unknown) (unknown) (unknown) (no date) (unknown) [...] (no date) (unknown) (unknown) ER Physician: Isreal Dnune MD (units unknown) (unknown) (unknown) (no date) [...] (unknown) (unknown) (no date) (unknown) (unknown) [address] [address] (units unknown) (unknown) (unknown) (no date) (unknown) [...] (no date) (unknown) (unknown) Lymph # (Auto) (4957-8683) /uL (units unknown) (unknown) (unknown) (no date) (unknown) (unknown) Lymph # (Auto) 2400 (1644-5798) /uL (units unknown) (unknown) (unknown) (no date) [...] unknown) (unknown) (unknown) (no date) (unknown) (unknown) [place] # (Auto) (0-900) /uL (units unknown) (unknown) (unknown) (no date) (unknown) (unknown) [place] # (Auto) 300 (0-900) /uL (units unknown) (unknown) (unknown) (no date) (unknown) (unknown) [place] % (Auto) (3-14) % (units unknown) (unknown) (unknown) (no date) (unknown) (unknown) [place] % (Auto) 4.9 (3-14) % (units unknown) [...] (no date) (unknown) (unknown) Neut # (Auto) (2828-6849) /uL (units unknown) (unknown) (unknown) (no date) (unknown) (unknown) Neut # (Auto) 3800 (7087-5729) /uL (units unknown) (unknown) (unknown) (no date) [...] (unknown) (unknown) (no date) (unknown) (unknown) R#: [id number] (units unknown) (unknown) (unknown) (no date) (unknown) [...] (unknown) (no date) (unknown) (unknown) Urine Specific Normal 1.010 (units unknown) (unknown) (unknown) (no date) [...] as entire arm and hands and fingers. Child Watch Attendant is slightly weaker (units unknown) (unknown) (unknown) [...] (no date) (unknown) (unknown) is with the [employer]. No recent illness. No cough cold congestion [...] . He is driving. She states in [place] she was getting (units unknown) (unknown) (unknown) (no date) (unknown) (unknown) phone number to establish family doctor. Call [phone] return if worse if (units unknown) (unknown) [...] (unknown) (no date) (unknown) (unknown) : 1985 Acct:[id number] (units unknown) (unknown) (unknown) (no date) (unknown) [...] (unknown) (unknown) (no date) (unknown) (unknown) [address] [address] (units unknown) (unknown) (unknown) (no date) (unknown) [...] (no date) (unknown) (unknown) Lymph # (Auto) (1041-8642) /uL (units unknown) (unknown) (unknown) (no date) (unknown) (unknown) Lymph # (Auto) 2400 (1641-2653) /uL (units unknown) (unknown) (unknown) (no date) [...] unknown) (unknown) (unknown) (no date) (unknown) (unknown) [place] # (Auto) (0-900) /uL (units unknown) (unknown) (unknown) (no date) (unknown) (unknown) [place] # (Auto) 300 (0-900) /uL (units unknown) (unknown) (unknown) (no date) (unknown) (unknown) [place] % (Auto) (3-14) % (units unknown) (unknown) (unknown) (no date) (unknown) (unknown) [place] % (Auto) 4.9 (3-14) % (units unknown) [...] (no date) (unknown) (unknown) Neut # (Auto) (0314-6371) /uL (units unknown) (unknown) (unknown) (no date) (unknown) (unknown) Neut # (Auto) 3800 (5446-8009) /uL (units unknown) (unknown) (unknown) (no date) [...] (unknown) (unknown) (no date) (unknown) (unknown) R#: [id number] (units unknown) (unknown) (unknown) (no date) (unknown) [...] (unknown) (no date) (unknown) (unknown) Urine Specific Normal 1.010 (units unknown) (unknown) (unknown) (no date) [...] (no date) (unknown) (unknown) arch through the [place]. Post-contrast 4.5 mm thick sections [...] as entire arm and hands and fingers. Child Watch Attendant is slightly weaker (units unknown) (unknown) (unknown) [...] (no date) (unknown) (unknown) is with the [facility]. No recent illness. No cough cold congestion fever (units unknown) (unknown) (unknown) (no date) (unknown) (unknown) lesions. (units unknown) (unknown) (unknown) (no date) (unknown) (unknown) leukocytosis, troponin less than 0.012 (units unknown) (unknown) (unknown) (no date) (unknown) (unknown) xznihph-frhqwlkks-oo ojection (MIP) (units unknown) (unknown) (unknown) (no [...] . He is driving. She states in [place] she was getting (units unknown) (unknown) (unknown) (no date) (unknown) (unknown) patient. Return precautions reviewed patient. Patient and family desire (units unknown) (unknown) (unknown) (no date) (unknown) (unknown) phone number to establish family doctor. Call [phone] return if worse if (units unknown) (unknown) [...] date description facility 2022-07-19 00:00 Ex-smoker (finding) [facility] Vital Signs date measurement value units 2022-07-19 [...]
[2022-09-27 22:15] LABS: BASOPHILS % (AUTO) 0.3 %; EOSINOPHILS # (AUTO) 0.1 10^3/uL (0.0-0.7); EOSINOPHILS % (AUTO) 0.7 %; HGB - HEMOGLOBIN 11.7 g/dL (12.0-16.0); LYMPHOCYTES # (AUTO) 3.8 10^3/uL (1.5-3.5); LYMPHOCYTES % (AUTO) 41.1 %; MEAN CORPUSCULAR HEMOGLOBIN 29.4 pg (27.0-31.0); MEAN CORPUSCULAR HGB CONC 32.5 g/dL (32.0-36.0); MEAN CORPUSCULAR VOLUME 90.5 fL (81.0-99.0); MEAN PLATELET VOLUME 10.1 fL (7.9-10.8); MONOCYTES # (AUTO) 0.6 10^3/uL (0.0-1.0); MONOCYTES % (AUTO) 6.2 %; NEUTROPHILS # (AUTO) 4.7 10^3/uL (1.5-6.6); NEUTROPHILS % (AUTO) 51.4 %; PLT - PLATELET COUNT 200 10^3/uL (130-450); RED BLOOD COUNT 3.98 10^6/uL (4.20-5.40); RED CELL DISTRIBUTION WIDTH 12.4 % (12.0-15.0); WHITE BLOOD COUNT 9.1 x10^3/uL (4.8-10.8)
[2022-09-27] MEDS ORDERED: HYDROmorphone 1 MG/ML CARPUJECT IM STA (22:29)
[2022-09-27] MEDS ORDERED: KETOROLAC 60 MG/2 ML VIAL IM STA (22:29)
--- NOTE | 2022-09-27 22:32 | ED Physician Documentation ---
History of Present Illness - Stated complaint Stated Complaint: FEMALE - Chief complaint Chief Complaint: General - History obtained from History obtained from: Patient - Additonal information Additional information: The patient comes to the emergency department with chief complaint of heavy bleeding for the last 3 days of her period. She states the first 2 days seem to be fairly normal flow and that she started menstruating at the appropriate time. However, these last few days, she states she has been soaking pads sometimes every 30 minutes and that she feels weak and lightheaded. The patient states she has a history of ovarian cyst rupture previously and that she had to have surgery for this 1 time. She is not known to have fibroids or any other /reproductive issues. She states that she has diabetes and some mental health issues but is otherwise fairly healthy. No other complaints at this time. 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 - Present Medications Home Medications: Ambulatory Orders Medication Instructions Recorded Confirmed Fluticasone/Salmeterol [Advair 1 puffs INH DAILY 04/20/14 02/15/22 500-50 Diskus] Albuterol Sulf [Ventolin Hfa 2 - 3 puffs INH QID #1 each 02/15/22 Inhaler] Benzonatate [Tessalon] 100 mg PO TID PRN #20 cap 02/15/22 Divalproex Sodium [Depakote] 750 mg PO DAILY 02/15/22 02/15/22 Ondansetron Odt [Zofran] 4 mg TL Q6H PRN #10 tablet 02/15/22 dexAMETHasone [Decadron] 4 mg PO DAILY #5 tablet 02/15/22 Acetaminophen/Cod 300/30 [Tylenol 1 - 2 each PO Q6HR PRN #14 tablet 08/16/22 #3] Ondansetron Odt [Zofran Odt] 4 mg TL Q6H PRN #14 tablet 08/16/22 Acetaminophen/Cod 300/30 [Tylenol 1 - 2 tab PO Q4-6H PRN #15 tablet 08/30/22 #3] HYDROcod/ACETAM 5/325 [Harrison 5/325] 1 - 2 tablet PO Q6H PRN #14 tablet 09/27/22 - Allergies Allergies/Adverse Reactions: Allergies Allergy/AdvReac Type Severity Reaction Status Date / Time acetaminophen [From Percocet] Allergy Anaphylaxis Verified 09/27/22 21:42 betamethasone valerate * Allergy Hives Verified 09/27/22 21:42 [From Valisone] diazepam [From Valium] Allergy Anaphylaxis Verified 09/27/22 21:42 hydrocodone [From Vicodin] Allergy Anaphylaxis Verified 09/27/22 21:42 morphine Allergy Anaphylaxis Verified 09/27/22 21:42 NSAIDS (Non-Steroidal Allergy Hives Verified 09/27/22 21:42 Anti-Inflamma oxycodone [From Percocet] Allergy Anaphylaxis Verified 09/27/22 21:42 pain medicine Allergy Respiratory Uncoded 09/27/22 21:42 - Social History Does the pt smoke?: No Smoking Status: Never smoker Does the pt drink ETOH?: Yes Does the pt have substance abuse?: No - Immunizations Immunizations are current?: Yes PD ED PE NORMAL - Vitals Vital signs reviewed: Yes - General General: Alert and oriented X 3, No acute distress, Well developed/nourished - HEENT HEENT: Atraumatic, PERRL, EOMI, Moist mucous membranes - Neck Neck: Supple, no meningeal sign - Cardiac Cardiac: RRR, No murmur, Strong equal pulses - Respiratory Respiratory: No respiratory distress, Clear bilaterally - Abdomen Abdomen: Soft, Non distended, Other (Diffuse lower abdominal tenderness, no rebound or guarding.) - Derm Derm: Normal color, Warm and dry, No rash - Extremities Extremities: No deformity, No edema - Neuro Neuro: Alert and oriented X 3, patient safety coordinator 2-12 intact, Normal speech, Other (Grossly intact) - Psych Psych: Normal mood, Normal affect Results - Vitals Vitals: Vital Signs - 24 hr 09/27/22 09/28/22 21:39 00:26 Temperature 36.2 C L Heart Rate 92 67 Respiratory 17 18 Rate Blood Pressure 142/81 H 120/67 O2 Saturation 100 100 Oxygen O2 Source Room air - Labs Labs: Laboratory Tests 09/27/22 22:12 WBC 9.1 RBC 3.98 L Hgb 11.7 L Hct 36.0 L MCV 90.5 MCH 29.4 MCHC 32.5 RDW 12.4 Plt Count 200 MPV 10.1 Neut # (Auto) 4.7 Lymph # (Auto) 3.8 H Barnwell # (Auto) 0.6 Eos # (Auto) 0.1 Baso # (Auto) 0.0 Absolute Nucleated RBC 0.00 Nucleated RBC % 0.0 - Rads (name of study) Ultrasound pelvis Relevant Findings:: Final report received, See rad report (IUD in place, no torsion; no fibroids.) PD Medical Decision Making - ED course Complexity details: reviewed results, re-evaluated patient, considered differential, d/w patient ED course: The patient was worked up with laboratory studies and ultrasound of the pelvis. She was treated symptomatically with IM Toradol and Dilaudid. The patient was found to be feeling quite a bit better after medications. She was found to have a hemoglobin of 11.7 which was a drop from about a month and a half ago when she was 13.4. The acuity more specifically than the last month and a half it is unclear. The ultrasound was unremarkable. I discussed the case with Dr. Carrion who is on-call for [facility] and she stated that for now, the patient should not be given hormone therapy or anything else, but that the bleeding would probably run its course. She did state the patient should present to the women's health clinic for an appointment as soon as possible to have further evaluation of her bleeding and to remove the IUD, which the patient wants taken out and could be partly responsible for triggering more bleeding. I discussed the plan with the patient who is agreeable. She states she will call the women's [facility] clinic first thing in the morning. We discussed the usual indications for return. Departure - Departure Disposition: 01 Home, Self Care Clinical Impression: Abdominal pain Qualifiers: Abdominal location: lower abdomen, unspecified Qualified Code(s): R10.30 - Lower abdominal pain, unspecified Menorrhagia Qualifiers: Menorrhagia type: with regular cycle Qualified Code(s): N92.0 - Excessive and frequent menstruation with regular cycle Condition: Stable Instructions: ED Bleeding Menstrual Heavy Follow-Up: Derian Newell MD [Provider Admit Priv/Credential] - Prescriptions: HYDROcod/ACETAM 5/325 [Harrison 5/325] 1 - 2 tablet PO Q6H PRN #14 tablet PRN Reason: Pain Comments: Your labs show a decrease in your red blood cell level over the last month and a half, but your red blood cells are not dangerously low. Your vital signs are stable and you have been rehydrated with a liter of saline solution, there is no evidence of dangerously low blood at this time. Your case has been discussed with Dr. Carrion of gynecology and she feels that you can follow-up in their clinic for further evaluation. She expects that your bleeding will ultimately stop on its own, but does recommend removal of the IUD, particularly since you do not want to have it any longer anyway. She says that they will talk about doing more testing when he comes to the clinic. Please call first thing in the morning to set up an appointment to follow-up. Be sure to tell them that you were seen in the emergency department and that the on-call OB tax technician wanted you to follow-up as soon as possible. You may take your nausea medication at home as needed. A prescription for pain medication has been electronically transmitted to the [facility] pharmacy in [place] at your request. Please also be sure you drink plenty of fluids every day. You may engage in activity as much as you feel able or well enough to do so. Discharge Date/Time: 09/28/22 00:27
[2022-09-27] MEDS ORDERED: HYDROmorphone 1 MG/ML CARPUJECT IVP STA (22:33)
[2022-09-27] MEDS ORDERED: KETOROLAC 30 MG/ML VIAL IVP STA (22:34)
[2022-09-27] MEDS ORDERED: SODIUM CHLORIDE 0.9% 1,000 ML IV STA (22:35)
--- NOTE | 2022-09-27 23:47 | Ultrasound Report ---
PROCEDURE: Pelvic w/Doppler Complete INDICATIONS: menorrhagia TECHNIQUE: Real-time scanning was performed of the pelvic organs, with image documentation. Additional endovagi nal scanning was necessary due to incomplete visualization of the adnexal and endometrial structures by transabdominal scanning. Doppler interrogation was performed of the ovaries bilaterally. COMPARISON: None. FINDINGS: Uterus: Uterus is anteverted and normal in size at 8.9 x 4.4 x 5.5 cm. The myometrium is homogeneou s. The endometrium measures 6.6 mm in combined thickness. IUD is in appropriate position. Ovaries: The right ovary measures 3.3 x 2.0 x 3.7 cm, with a calculated ovarian volume of 12.3 cc. The left ovary measures 2.2 x 1.4 x 2.1 cm, with a calculated ovarian volume of 3.4 cc. Appropriate blood flow to the ovaries with Doppler interrogation. Less than 12 follicles can be seen in each ov jahaira. No adnexal masses are seen. No cystic lesions measuring greater than 3 cm. Other: No pathologic free abdominal or pelvic fluid. Bilateral vascular flow is identified. IMPRESSION: Normal exam. No evidence of torsion. : Reviewed by: Rona Whitfield MD on 09/27/2022 11:46 PM PDT Approved by: Rona Whitfield MD on 09/27/2022 11:46 PM PDT Station ID: [id number]
[2022-09-28 00:27] VITALS: BP 120/67
== END 2022-09-28 00:27 | disposition home or self-care (01) ==
LOC: ED 21:31
DX: N92.0 Excessive and frequent menstruation with regular cycle (principal); R10.30 Lower abdominal pain, unspecified; E11.9 Type 2 diabetes mellitus without complications; Z79.51 Long term (current) use of inhaled steroids; Z79.899 Other long term (current) drug therapy
CPT/HCPCS: 36415; 76856; 85025; 93975; 96374; 96375; 99284; J1170

== ENCOUNTER 2023-01-27 19:20 | Emergency (ER) | payer OTHER ==
[2023-01-27 19:30] VITALS: O2SAT 100
[2023-01-27] MEDS ORDERED: SUMAtriptan 6 MG/0.5 ML VIAL SUBQ STA (19:32)
[2023-01-27] MEDS ORDERED: KETOROLAC 60 MG/2 ML VIAL IM STA (19:32)
--- NOTE | 2023-01-27 19:34 | ED Physician Documentation ---
History of Present Illness - Stated complaint Stated Complaint: DIZZY,LAURA - Chief complaint Chief Complaint: General - History obtained from History obtained from: Patient - Additonal information Additional information: 37-year-old woman with long history of migraines developed a gradual onset global headache 2 days ago associated with nausea, light sensitivity, severe dizziness. Sshe tried ibuprofen at home which was ineffective. he doubts any possibility of as her has had a vasectomy. 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 - Present Medications Home Medications: Ambulatory Orders Medication Instructions Recorded Confirmed Albuterol Sulf [Ventolin Hfa 2 - 3 puffs INH QID #1 each 02/15/22 01/27/23 Inhaler] Divalproex Sodium [Depakote] 500 mg PO TID 02/15/22 01/27/23 Acetaminophen/Cod 300/30 [Tylenol 1 - 2 tab PO Q4-6H PRN #15 tablet 08/30/22 01/27/23 #3] Amitriptyline [Elavil] 25 mg PO QPM 01/27/23 01/27/23 - Allergies Allergies/Adverse Reactions: Allergies Allergy/AdvReac Type Severity Reaction Status Date / Time acetaminophen [From Percocet] Allergy Anaphylaxis Verified 09/27/22 21:42 betamethasone valerate * Allergy Hives Verified 09/27/22 21:42 [From Valisone] diazepam [From Valium] Allergy Anaphylaxis Verified 09/27/22 21:42 hydrocodone [From Vicodin] Allergy Anaphylaxis Verified 09/27/22 21:42 morphine Allergy Anaphylaxis Verified 09/27/22 21:42 NSAIDS (Non-Steroidal Allergy Hives Verified 09/27/22 21:42 Anti-Inflamma oxycodone [From Percocet] Allergy Anaphylaxis Verified 09/27/22 21:42 pain medicine Allergy Respiratory Uncoded 09/27/22 21:42 - Social History Does the pt smoke?: No Smoking Status: Never smoker Does the pt drink ETOH?: Yes Does the pt have substance abuse?: No - Immunizations Immunizations are current?: Yes PD ED PE NORMAL - Vitals Vital signs reviewed: Yes - General General: Alert and oriented X 3, Other (Uncomfortable and photophobic) - HEENT HEENT: PERRL, EOMI - Neck Neck: Supple, no meningeal sign, No bony TTP - Neuro Neuro: Alert and oriented X 3 Eye Opening: Spontaneous Motor: Obeys Commands Verbal: Oriented GCS Score: 15 - Psych Psych: Normal mood, Normal affect Results - Vitals Vitals: Vital Signs - 24 hr 01/27/23 01/27/23 19:23 21:04 Temperature 37 C Heart Rate 75 67 Respiratory 20 16 Rate Blood Pressure 130/84 H 109/67 O2 Saturation 100 100 Oxygen O2 Source Room air - Labs Labs: Laboratory Tests 01/27/23 19:35 Urine HCG, Qual NEGATIVE PD Medical Decision Making - ED course ED course: 37-year-old woman with gradual onset migrainous type headache, no symptoms in her history to suggest more severe etiology such as subarachnoid hemorrhage, meningitis. She was having a lot of dizziness with this as well. Initial therapy was with IM Toradol and subcutaneous Imitrex which was ineffective. This initial therapy was chosen because she wanted to be able to drive. I discussed with her that after these were ineffective that we would have to trial alternative therapies which would probably make her need to have a ride and she was agreeable. Subsequently was given IV fluids, and IV Reglan, Benadryl, and dexamethasone. Subsequent to those medications both her dizziness and headache resolved. Departure - Departure Disposition: 01 Home, Self Care Clinical Impression: Migraine Qualifiers: Migraine type: unspecified Status migrainosus presence: with status migrainosus Intractability: not intractable Qualified Code(s): G43.901 - Migraine, unspecified, not intractable, with status migrainosus Condition: Good Record reviewed to determine appropriate education?: Yes Instructions: ED Headache Migraine Comments: You are seen today for dizziness related to a migraine and improved after usual migraine medications were given the emergency department for migraines. Do not drive tonight. Return for new or worsening symptoms. Follow-up with your primary care physician, next available appointment. Forms: PCP List
[2023-01-27 19:50] LABS: HCG UR QUAL NEGATIVE
[2023-01-27] MEDS ORDERED: DEXAMETHASONE 10 MG/ML VIAL IVP STA (20:24)
[2023-01-27] MEDS ORDERED: METOCLOPRAMIDE 10 MG/2 ML VIAL IVP STA (20:24)
[2023-01-27] MEDS ORDERED: diphenhydrAMINE INJ 50 MG/ML VIAL IVP STA (20:24)
[2023-01-27] MEDS ORDERED: SODIUM CHLORIDE 0.9% 1,000 ML IV STA (20:24)
[2023-01-27 21:08] VITALS: BP 109/67
== END 2023-01-27 21:17 | disposition home or self-care (01) ==
LOC: ED 19:20
DX: G43.901 Migraine, unspecified, not intractable, with status migrainosus (principal)
CPT/HCPCS: 81025; 96372; 96374; 99284; 99285; J1200; J2765

== ENCOUNTER 2023-02-19 13:56 | Emergency (ER) | payer OTHER ==
[2023-02-19 14:12] VITALS: O2SAT 100
--- NOTE | 2023-02-19 14:43 | ED Physician Documentation ---
PD HPI DYSPNEA - Stated complaint Stated Complaint: COUGH,SOA,ASTHMA - Chief complaint Chief Complaint: Resp - History obtained from History obtained from: Patient - Additional information Additional information: This is a 37-year-old female who has a past medical history of mild intermittent asthma, and as needed albuterol who presents with shortness of breath and cough for the last week. She states she has a burning sensation when she coughs. She feels wheezy at times and has been using her albuterol inhaler frequently. She is not on any maintenance medication, no nebs. She has not not had any sinus pain or congestion, no ear pain, no fever or chills, no GI or symptoms. No known sick contacts. She states that she gets exacerbations every few months since she has been in [place] though moves around frequently due to being in a family. Her symptoms do however seem worse in [place]. She has not seen her PCP recently for this, and has not seen a contracting officer for many years. 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 - Present Medications Home Medications: Ambulatory Orders Medication Instructions Recorded Confirmed Albuterol Sulf [Ventolin Hfa 2 - 3 puffs INH QID #1 each 02/15/22 01/27/23 Inhaler] Divalproex Sodium [Depakote] 500 mg PO TID 02/15/22 01/27/23 Acetaminophen/Cod 300/30 [Tylenol 1 - 2 tab PO Q4-6H PRN #15 tablet 08/30/22 01/27/23 #3] Amitriptyline [Elavil] 25 mg PO QPM 01/27/23 01/27/23 Albuterol Sulf [Ventolin Hfa 1 - 2 puffs INH Q4HR PRN #1 each 02/19/23 Inhaler] predniSONE [Deltasone] 40 mg PO DAILY 5 Days #10 tablet 02/19/23 - Allergies Allergies/Adverse Reactions: Allergies Allergy/AdvReac Type Severity Reaction Status Date / Time acetaminophen [From Percocet] Allergy Anaphylaxis Verified 02/19/23 14:03 betamethasone valerate * Allergy Hives Verified 02/19/23 14:03 [From Valisone] diazepam [From Valium] Allergy Anaphylaxis Verified 02/19/23 14:03 hydrocodone [From Vicodin] Allergy Anaphylaxis Verified 02/19/23 14:03 morphine Allergy Anaphylaxis Verified 02/19/23 14:03 NSAIDS (Non-Steroidal Allergy Hives Verified 02/19/23 14:03 Anti-Inflamma oxycodone [From Percocet] Allergy Anaphylaxis Verified 02/19/23 14:03 pain medicine Allergy Respiratory Uncoded 02/19/23 14:03 - Social History Does the pt smoke?: No Smoking Status: Never smoker Does the pt drink ETOH?: Yes Does the pt have substance abuse?: No - Immunizations Immunizations are current?: Yes - POLST Patient has POLST: No PD ED PE NORMAL - Vitals Vital signs reviewed: Yes - General General: Alert and oriented X 3, No acute distress, Well developed/nourished - HEENT HEENT: Atraumatic, Ears normal, Moist mucous membranes, Pharynx benign - Cardiac Cardiac: RRR, No murmur, No gallop, No rub, Strong equal pulses - Respiratory Respiratory: No respiratory distress, Clear bilaterally, Other (Nonlabored, completely clear, oxygenating well on room air) Results - Vitals Vitals: Vital Signs - 24 hr 02/19/23 02/19/23 14:04 14:50 Temperature 36.8 C 36.7 C Heart Rate 74 65 Respiratory 24 16 Rate Blood Pressure 134/72 H 124/84 H O2 Saturation 100 100 Oxygen O2 Source Room air PD Medical Decision Making - ED course Complexity details: considered differential, d/w patient ED course: 37-year-old female with a history of asthma presents with shortness of breath and a burning sensation when she coughs over the course of the last week. She has been using her albuterol frequently without relief. On arrival here, the patient is acting well on room air, she appears in no respiratory distress, she is is talking in full sentences and her lungs are clear on auscultation. I discussed with patient that this may be because of her recent use of albuterol but at this time I do not think there will be any benefit from nebulizer treatment, we can give her a short course of prednisone for possible asthma exacerbation. I do not see indication for antibiotics at this time however. Recommended [id number]-sabegol Mucinex if desired, humidification, staying well- hydrated and and Tylenol as needed for pain. I discussed return precautions if any new or worsening symptoms. Departure - Departure Disposition: 01 Home, Self Care Clinical Impression: Asthma Condition: Good Instructions: ED Bronchitis Asthmatic Prescriptions: Albuterol Sulf [Ventolin Hfa Inhaler] 1 - 2 puffs INH Q4HR PRN #1 each PRN Reason: Shortness Of Air/Wheezing predniSONE [Deltasone] 40 mg PO DAILY 5 Days #10 tablet Comments: Your lungs are clear at this time, and you are oxygenating well. You may be having a mild asthma exacerbation but it seems to be responding to the albuterol. I renewed your albuterol and we will give you a short course of steroids to help with your symptoms. Please follow-up with your primary doctor as you may benefit from additional asthma medication that you take on a daily basis to reduce the frequency of your exacerbations. Forms: PCP List Discharge Date/Time: 02/19/23 14:50
[2023-02-19 15:00] VITALS: BP 124/84
== END 2023-02-19 14:50 | disposition home or self-care (01) ==
LOC: ED 13:56
DX: J45.909 Unspecified asthma, uncomplicated (principal); E11.9 Type 2 diabetes mellitus without complications; Z79.899 Other long term (current) drug therapy
CPT/HCPCS: 99282; 99284